=== PATIENT | male | born 1965 | race Caucasian/White ===

== ENCOUNTER 2018-03-20 00:15 | Outpatient (CLI) | payer OTHER, SELFPAY | END 2018-03-20 00:35 | PROVIDERS: PCP Family Medicine; Visit Provider Surgery | DX: Z12.11 Encounter for screening for malignant neoplasm of colon (principal); E66.8 Other obesity; Z01.818 Encounter for other preprocedural examination ==

== ENCOUNTER 2018-03-29 06:16 | Day surgery (SDC) | payer OTHER, SELFPAY ==
[2018-03-29 06:32] VITALS: BP 160/82; PULSE 60; RESP 22; TEMP 37; O2SAT 98
[2018-03-29] MEDS: Lactated Ringers 1,000 ML 30 ML IV ×2 (06:55→08:32)
--- NOTE | 2018-03-29 08:27 | W.COLOREPORT ---
Date of service: 03/29/18 Time of Service: 08:00 Colonoscopy Report Date of procedure: 03/29/18 Pre-op diagnosis general: Colorectal cancer screening Post-op diagnosis procedure note: other (Normal colon to the cecum) Procedure: Colonoscopy to the cecum Surgeon: Gurmeet Briones Anesthesia proc note operative: MAC (Maura Sotomayor CRNA; ASA 3 Mallampati class II) Estimated blood loss (mL): 0 Pathology: none sent Complications: None Disposition: same day Indications: 52-year-old morbidly obese gentleman presenting for colorectal cancer screening by colonoscopy. He has been asymptomatic has no family history of colorectal cancer and the risks and benefits of the procedure been discussed with him, and all his questions been answered to his satisfaction. Consents been obtained procedure: Prep: Miralax/Dulcolax (Prep quality good) Procedure Start Time: 08:02 Procedure End Time: 08:22 Retraction Time: 7 Findings: In examining the colon from cecum to anus, no abnormalities were noted. Procedure Description: The patient was seen in the day surgery waiting area. His identification was confirmed, and procedure checked. He was then brought to the procedure room. Monitoring for telemetry, blood pressure, oxygen saturation, and end tidal CO2 monitoring were applied. An appropriate time out was performed to confirm, identification, allergies, medication, procedure, was performed. Sedation was titrated for affect by the CUSTOMER CARE ASSOCIATE; Once adequate sedation was achieved, I performed a inspection of the external perineum, and a digitial rectal examination. No significant external abnormalities were noted. On digital rectal examination, there was no blood, no masses, good rectal tone, and a normal prostate. I advanced the colonoscope from the anus to the cecum under direct visualization. The cecum was identified by the ileal-cecal valve, and the appendiceal orifice. The scope was then withdrawn in circumferential manner from the cecum to the rectum. No abnormalites were noted in the colon. The scope was then withdrawn into the rectum, and retroflexed. No abnormalities were noted of the rectum or anorectal junction. The scope was then withdrawn, terminating the procedure. There were no complications during the procedure, and the patient tolerated the procedure well. He was returned to the day surgery recovery area in good condition. Plan: Will continue with routine screening for colorectal cancer according to current consensus guidelines, which is currently 10 years.
--- NOTE | 2018-03-29 08:34 | PDOC.DSDIS_ITS ---
Discharge Plan Disposition Patient Disposition: HOME Condition: Good Discharge Details Reason For Visit: SCREENING Attending Provider: Gurmeet Briones Primary Care Provider: Claudio Alegre Home Meds and New Rx's Prescriptions: Continue montelukast [Singulair] 10 mg tablet 10 mg PO QPM RF: 0 fluticasone [Flonase Allergy Relief] 50 mcg/actuation spray,suspension 2 spray CLYDE HS RF: 0 mv,Ca,win-mtjs-GC-lycopene [Centrum Ultra Men's] 1 EACH tablet 1 ea PO DAILY RF: 0 losartan [Cozaar] 50 MG tablet 50 mg PO HS RF: 0 atenolol-chlorthalidone 1 EACH tablet 1 tab-cap PO HS RF: 0 atenolol 25 MG tablet 50 mg PO HS RF: 0 polyethylene glycol 3350 [Miralax] 17 gram/dose Powder RF: 0 Discharge Instructions Instructions: Colonoscopy (DC) Stand Alone Forms: Colonoscopy Post Instructions, Bennett Cortez (DSU) Activity:: Activity as Tolerated Diet:: As Tolerated Discharge Orders Discharge Orders: Discharge Order (Routine); Ordered 03/29/18 Ordered By: Gurmeet Briones DS: Diagnosis Discharge Diagnosis (1) Encounter for screening colonoscopy: Start date: 03/29/18 Start time: 08:32 Status: Acute Asessment and Plan: Colonoscopy performed: Colonoscopy Report Date of procedure: 03/29/18 Pre-op diagnosis general: Colorectal cancer screening Post-op diagnosis procedure note: other (Normal colon to the cecum) Procedure: Colonoscopy to the cecum Surgeon: Gurmeet Briones Anesthesia proc note operative: MAC (Maura Sotomayor CRNA; ASA 3 Mallampati class II) Estimated blood loss (mL): 0 Pathology: none sent Complications: None Disposition: same day Indications: 52-year-old morbidly obese gentleman presenting for colorectal cancer screening by colonoscopy. He has been asymptomatic has no family history of colorectal cancer and the risks and benefits of the procedure been discussed with him, and all his questions been answered to his satisfaction. Consents been obtained procedure: Prep: Miralax/Dulcolax (Prep quality good) Procedure Start Time: 08:02 Procedure End Time: 08:22 Retraction Time: 7 Findings: In examining the colon from cecum to anus, no abnormalities were noted. Procedure Description: The patient was seen in the day surgery waiting area. His identification was confirmed, and procedure checked. He was then brought to the procedure room. Monitoring for telemetry, blood pressure, oxygen saturation, and end tidal CO2 monitoring were applied. An appropriate time out was performed to confirm, identification, allergies, medication, procedure, was performed. Sedation was titrated for affect by the EMBOSSING TOOLSETTER; Once adequate sedation was achieved, I performed a inspection of the external perineum, and a digitial rectal examination. No significant external abnormalities were noted. On digital rectal examination, there was no blood, no masses, good rectal tone, and a normal prostate. I advanced the colonoscope from the anus to the cecum under direct visualization. The cecum was identified by the ileal-cecal valve, and the appendiceal orifice. The scope was then withdrawn in circumferential manner from the cecum to the rectum. No abnormalites were noted in the colon. The scope was then withdrawn into the rectum, and retroflexed. No abnormalities were noted of the rectum or anorectal junction. The scope was then withdrawn, terminating the procedure. There were no complications during the procedure, and the patient tolerated the procedure well. He was returned to the day surgery recovery area in good condition. Plan: Will continue with routine screening for colorectal cancer according to current consensus guidelines, which is currently 10 years.
[2018-03-29 08:56] VITALS: BP 154/75; PULSE 50; RESP 18; TEMP 35.9; O2SAT 98
== END 2018-03-29 09:20 | disposition home or self-care (01) ==
PROVIDERS: PCP Family Medicine; Visit Provider Surgery
PROC: 0DJD8ZZ Inspection of Lower Intestinal Tract, Via Natural or Artificial Opening Endoscopic (ICD-10-PCS; CPT 45378; principal; 2018-03-29 07:30)
DX: Z12.11 Encounter for screening for malignant neoplasm of colon (principal); I10 Essential (primary) hypertension; G47.33 Obstructive sleep apnea (adult) (pediatric); E66.01 Morbid (severe) obesity due to excess calories
CPT/HCPCS: 45378

== ENCOUNTER 2018-04-18 09:34 | Outpatient (REF) | payer OTHER, SELFPAY ==
--- NOTE | 2018-04-18 09:15 | NASALBX_PTH ---
PATIENT: Jack Handley LOC: [facility] U#:[id number] AGE/SX: 52/M ROOM: RE04/18/[address]: Henry Lynch MD : 1965 BED: DIS: 04/18/2018 SPEC #: [id number] RECD: 04/18/18 18:11 STATUS: ILENE REQ #: [id number] DARSHANA: 04/18/18 09:[address]: Henry Lynch DEPT: Surgical Specimen RECD BY: Linda Schmidt ENTERED: 04/18/18 18:12 SP TYPE: NASALBX OTHR DR: Claudio Alegre MD Tissues: 1 - MUCOSA, NOS Procedures: GROSS AND MICRO LEVEL 3 Comments: [id number]
== END 2018-04-18 09:54 ==
LOC: LBN 09:34
PROVIDERS: PCP Family Medicine; Visit Provider Otolaryngology
DX: J33.0 Polyp of nasal cavity (principal)
CPT/HCPCS: 88305; 88304

== ENCOUNTER 2018-11-04 11:35 | Outpatient (CLI) | payer OTHER, SELFPAY ==
[2018-11-04 13:28] LABS: ALT 38 U/L (12-78); AST 26 U/L (15-37); Albumin 3.7 g/dL (3.4-5.0); Alkaline Phosphatase 90 U/L (46-116); Anion Gap 11.7 mmol/L (3-11); BUN 13 mg/dL (7-18); Bilirubin, Total 0.7 mg/dL (0.2-1.0); CO2 26.3 mmol/L (21.0-32.0); CREATININE 0.83 mg/dL (0.70-1.30); Calcium 8.9 mg/dL (8.5-10.1); Calculated LDL 106 mg/dL; Chloride 103 mmol/L (98-107); Cholesterol 160 mg/dL (50-200); Glucose 101 mg/dL (70-100); HDL Cholesterol 36 mg/dL (40-60); Sodium 141 mmol/L (136-145); Total Protein 7.2 g/dL (6.4-8.2); Triglyceride 94 mg/dL (30-150)
[2018-11-04 13:35] LABS: Hemoglobin A1C 5.9 % (4.5-6.2)
== END 2018-11-04 11:55 ==
PROVIDERS: PCP Family Medicine; Visit Provider Family Medicine
DX: E78.6 Lipoprotein deficiency (principal); I10 Essential (primary) hypertension; Z83.3 Family history of diabetes mellitus
CPT/HCPCS: 36415; 80053; 80061; 83721; 83036

== ENCOUNTER 2019-08-22 10:55 | Emergency (ER) | payer OTHER, SELFPAY ==
[2019-08-22] VITALS (48 sets, daily range): BP systolic 109–160; BP diastolic 59–96; PULSE 78–106; RESP 10–31; TEMP 36.5–36.8; O2SAT 83–100
--- NOTE | 2019-08-22 11:00 | DI.RAD_ITS ---
EXAM: XR PORTABLE CHEST AP CLINICAL HISTORY: SOB TECHNIQUE: 2D digital imaging was performed. COMPARISON: No exams were available for comparison FINDINGS: MEDIASTINUM: Normal. HEART: Normal. PULMONARY VASCULATURE: Normal. LUNGS: There is a 5.3 cm rounded opacity in the left upper lobe. There is also question of an opacit y in the left lung base the right lung appears clear. PLEURAL SPACE: No pleural effusion or pneumothorax. BONE:Normal. OTHER FINDINGS:Normal. IMPRESSION: 1. 5.3 cm rounded opacity in the left upper lobe. Differential considerations include pulmonary neop lasm, rounded atelectasis or pneumonia. CT scan of the chest with contrast is recommended for furthe r evaluation. DATA REPOSITORY: RADIATION DOSE DELIVERED:
[2019-08-22 11:16] LABS: BE -3.7 mmol/L (-3-3); HCO3 21 mmol/L (22-28); pCO2 32 mmHg (34-47); pH 7.42 (7.35-7.45); pO2 69 mmHg (83-108); sO2 93 % (94-98); tCO2 18 mmol/L (22-29)
[2019-08-22 11:19] LABS: FIO2 100 %; Site Left Radial
--- NOTE | 2019-08-22 11:30 | DI.CT_ITS ---
EXAM: CT CHEST PE CTA CLINICAL HISTORY: HYPOXIC, SOB, R/O PE. TECHNIQUE: Imaging Protocol: Axial CT angiography was performed with multi-slice acquisition and mu lti-planar and/or 3D reconstructions. CONTRAST MATERIAL: Intravenous: Omnipaque 350 Contrast volume:100 mL COMPARISON: No exams were available for comparison FINDINGS: Pulmonary Arteries: There are filling defects seen in branches of the pulmonary arteries to the upper and lower lobes bilaterally and the right middle lobe. There is no evidence of a saddle embolus. Tracheobronchial tree: Patent where visualized. Mediastinum and Jessica: No dominant adenopathy or fluid collection. Pulmonary parenchyma: Multifocal areas of consolidation are present. There is a peripheral wedge-sha ped opacity in the posterior aspect of the left upper lobe and a similar-appearing opacity in the lef t lower lobe. Pulmonary infarcts cannot be excluded. No architectural distortion. Pleura: No effusion or pneumothorax. Heart: Cardiomegaly. No coronary artery calcifications are seen. The right ventricle appears distend ed relative to the left ventricle concerning for right heart strain. No significant pericardial effu linda is present. Aorta: Thoracic aorta non-dilated. No evidence of thoracic aortic dissection. Upper abdomen: Unremarkable. Bones: Degenerative changes. IMPRESSION: 1. Extensive pulmonary embolic disease. 2. Prominent right ventricle concerning for right heart strain. 3. Multifocal pulmonary infiltrates including peripheral infiltrates in the left upper and left lower lobes. Infarcts cannot be excluded. 4. The findings were discussed with the Emergency Department on the date of the examination. RADIATION DOSE DELIVERED: Total DLP DATA REPOSITORY: All CT scans at this facility are submitted to the National Radiology Data Registry (NRDR) Dose Index Registry (DIR) with the [employer] ([employer]). RADIATION OPTIMIZATION: All CT scans at this facility use at least one of these dose optimization te chniques: automated exposure control; mA and/or kV adjustment per patient size (includes targeted exa ms where dose is matched to clinical indication); or iterative reconstruction.
--- NOTE | 2019-08-22 11:37 | ED.GENADUL_ITS ---
Discharge Plan Disposition Patient Disposition: [facility] Condition: Serious Discharge Details Chief Complaint: SOB Clinical Impression: Bilateral pulmonary embolism, Pulmonary infarction, Pneumonia Primary Care Provider: Claudio Alegre ED Provider: Kaela Travis Home Meds and New Rx's Prescriptions: No Action atenolol 25 mg tablet 50 mg PO HS Qty: 180 RF: 3 atenolol-chlorthalidone 100-25 mg tablet 1 tab PO HS Qty: 90 RF: 3 losartan [Cozaar] 50 mg tablet 50 mg PO HS Qty: 90 RF: 3 montelukast [Singulair] 10 mg tablet 10 mg PO QPM Qty: 90 RF: 3 fluticasone propionate [Flonase Allergy Relief] 50 mcg/actuation spray,suspension 2 spray CLYDE HS Qty: 18.2 RF: 11 desonide 0.05 % cream 1 applic topical BID PRN (Reason: rash) Qty: 60 RF: 2 Centrum Ultra Men's 1 EACH tablet 1 ea PO DAILY RF: 0 Discharge Data Discharge Date/Time-TO BE ENTERED AT DEPARTURE: 08/22/19 16:14 Medical Decision Making 1110 -- 53-year-old male with a history of morbid obesity, hypertension, sleep apnea on CPAP at night presents with dry cough for 4 days and shortness of breath with exertion since yesterday. EMS reported an O2 sat of 70s on room air on arrival to residence. Patient placed on CPAP and O2 sat improved to low 80s. EMS reported possible need for intubation on arrival to ED. On arrival to ED, patient awake and alert and able to answer questions. O2 sat mid 70s on CPAP. Patient has diminished breath sounds at bases bilaterally but otherwise no obvious wheezing, rhonchi or rales. Patient placed on BiPAP and given 2 DuoNeb's. O2 sat increased to 98% and patient admitted to significant improvement. Differential diagnosis includes pneumonia, PE, COPD, CHF, COVID-19, MRI. EKG obtained which noted a rate of 93, sinus with T wave inversion in inferior and anterior lateral leads. No STEMI. ABG noted pH of 7.42, PCO2 32, PO2 69, bicarb 21. Patient remained stable, still significantly improved compared to arrival. 1310 --labs and imaging reviewed. White blood cell count 19. D-dimer elevated at 6427, ferritin elevated 592. LDH elevated at 312. BNP elevated at 3550. CRP elevated at 6.96. Procalcitonin <0.1. Chest x-ray notes patchy infiltrates left lung. Official read noted left upper lobe nodule, differential includes pneumonia, atelectasis, neoplasm. Vanc and Zosyn IV ordered. 1320 -- d/w hospitalist -would prefer to wait on repeat troponin and EKG to determine disposition, whether here or [facility]. If CT chest also indicating bilateral groundglass opacities, to discuss with [facility] whether to add remdesivir for possible COVID. 1430 --delay in obtaining CT chest. CT chest resulted and notes bilateral PE and questionable infarcts in addition to bilateral pneumonia and questionable right heart strain. Lovenox SC ordered. Pt remains stable. O2 sat 98% on bipap at 55% O2. 1500 -- Case discussed with [facility] cardiology who accepts patient for transfer. Accepting physician Dr. Coyne. Agrees with plan for Lovenox SC. No other medication recommendations at this time. Medical Records Medical records reviewed: Yes I reviewed the patient's medical records. Imaging Data Radiologic Study: Radiologist's impression: XR PORTABLE CHEST AP CLINICAL HISTORY: SOB TECHNIQUE: 2D digital imaging was performed. COMPARISON: No exams were available for comparison FINDINGS: MEDIASTINUM: Normal. HEART: Normal. PULMONARY VASCULATURE: Normal. LUNGS: There is a 5.3 cm rounded opacity in the left upper lobe. There is also question of an opacity in the left lung base the right lung appears clear. PLEURAL SPACE: No pleural effusion or pneumothorax. BONE:Normal. OTHER FINDINGS:Normal. IMPRESSION: 1. 5.3 cm rounded opacity in the left upper lobe. Differential considerations include pulmonary neoplasm, rounded atelectasis or pneumonia. CT scan of the chest with contrast is recommended for further evaluation. CT CHEST PE CTA CLINICAL HISTORY: HYPOXIC, SOB, R/O PE. TECHNIQUE: Imaging Protocol: Axial CT angiography was performed with multi- slice acquisition and multi-planar and/or 3D reconstructions. CONTRAST MATERIAL: Intravenous: Omnipaque 350 Contrast volume:100 mL COMPARISON: No exams were available for comparison FINDINGS: Pulmonary Arteries: There are filling defects seen in branches of the pulmonary arteries to the upper and lower lobes bilaterally and the right middle lobe. There is no evidence of a saddle embolus. Tracheobronchial tree: Patent where visualized. Mediastinum and Jessica: No dominant adenopathy or fluid collection. Pulmonary parenchyma: Multifocal areas of consolidation are present. There is a peripheral wedge-shaped opacity in the posterior aspect of the left upper lobe and a similar-appearing opacity in the left lower lobe. Pulmonary infarcts cannot be excluded. No architectural distortion. Pleura: No effusion or pneumothorax. Heart: Cardiomegaly. No coronary artery calcifications are seen. The right ventricle appears distended relative to the left ventricle concerning for right heart strain. No significant pericardial effusion is present. Aorta: Thoracic aorta non-dilated. No evidence of thoracic aortic dissection. Upper abdomen: Unremarkable. Bones: Degenerative changes. IMPRESSION: 1. Extensive pulmonary embolic disease. 2. Prominent right ventricle concerning for right heart strain. 3. Multifocal pulmonary infiltrates including peripheral infiltrates in the left upper and left lower lobes. Infarcts cannot be excluded. 4. The findings were discussed with the Emergency Department on the date of the examination. Lab Data Lab results reviewed: Yes I reviewed the patient's lab results. Labs: 08/22/19 12:06 Nasopharynx Influenza Types A,B Antigen - Final Laboratory Tests Range/Units 08/22/19 08/22/19 08/22/19 11:12 11:40 11:40 WBC (4.4-10.8) k/cumm 19.70 H RBC (4.50-6.00) m/cumm 5.08 Hgb (13.5-17.5) g/dL 15.8 Hct (40.0-50.0) % 44.6 MCV (80-95) fL 87.8 MCH (27.0-33.0) pg 31.1 MCHC (32.0-36.0) g/dL 35.4 RDW (11.8-14.1) % 13.7 Plt Count (130-400) x1000/uL 265 MPV (8.0-11.0) fL 10.9 Immature Gran % % 0.7 Neutrophils % 75.7 Lymphocytes % 14.6 Monocytes % 7.9 Eosinophils % 0.9 Basophils % 0.2 Absolute Neutrophils (1.2-6.7) k/cumm 14.91 H Absolute Lymphocytes (1.2-3.4) k/cumm 2.88 Absolute Monocytes (0.11-0.7) k/cumm 1.56 H Absolute Eosinophils (0.0-0.7) k/cumm 0.18 Absolute Basophils (0.0-0.2) k/cumm 0.04 Nucleated RBCs /100WBC 1 Differential Comment Diff reviewed RBC Morphology Normal PT (9.3-11.0) sec INR (0.9-1.1) APTT (21.0-31.4) sec D-Dimer (<500) ng/mlFEU ABG Sample Site Left radial ABG pH (7.35-7.45) 7.42 ABG pCO2 (34-47) mmHg 32 L ABG pO2 (83-108) mmHg 69 L ABG HCO3 (22-28) mmol/L 21 L ABG Total CO2 (22-29) mmol/L 18 L ABG O2 Saturation (94-98) % 93 L ABG Base Excess (-3-3) mmol/L -3.7 L FiO2 % 100 Sodium (136-145) mmol/L 139 Potassium (3.5-5.1) mmol/L 3.6 Chloride (98-107) mmol/L 103 Carbon Dioxide (21.0-32.0) mmol/L 22.9 Anion Gap (3-11) mmol/L 13.1 H BUN (7-18) mg/dL 19 H Creatinine (0.70-1.30) mg/dL 1.30 Estimated GFR/1.73 m2 (mL/min/1.73m2) 57.97 Glucose (74-106) mg/dL 164 H Calcium (8.5-10.1) mg/dL 9.3 Magnesium (1.8-2.4) mg/dL 1.9 Ferritin (26-388) ng/mL Total Bilirubin (0.2-1.0) mg/dL 0.9 AST (15-37) U/L 74 H ALT (16-63) U/L 90 H Alkaline Phosphatase (46-116) U/L 80 Lactate Dehydrogenase (85-227) U/L Troponin I (<0.06) ng/Ml 0.23 H* C-Reactive Protein (0.0-0.3) mg/dL NT-Pro-B Natriuret Pep (<300) pg/mL 3550 H Total Protein (6.4-8.2) g/dL 8.0 Albumin (3.4-5.0) g/dL 3.5 Procalcitonin ng/mL COVID-19 PCR (Negative) Jigarn COVID-19 PCR Ref Test Perform Site Range/Units 08/22/19 08/22/19 08/22/19 11:40 11:40 11:40 WBC (4.4-10.8) k/cumm RBC (4.50-6.00) m/cumm Hgb (13.5-17.5) g/dL Hct (40.0-50.0) % MCV (80-95) fL MCH (27.0-33.0) pg MCHC (32.0-36.0) g/dL RDW (11.8-14.1) % Plt Count (130-400) x1000/uL MPV (8.0-11.0) fL Immature Gran % % Neutrophils % Lymphocytes % Monocytes % Eosinophils % Basophils % Absolute Neutrophils (1.2-6.7) k/cumm Absolute Lymphocytes (1.2-3.4) k/cumm Absolute Monocytes (0.11-0.7) k/cumm Absolute Eosinophils (0.0-0.7) k/cumm Absolute Basophils (0.0-0.2) k/cumm Nucleated RBCs /100WBC Differential Comment RBC Morphology PT (9.3-11.0) sec 10.6 INR (0.9-1.1) 1.1 APTT (21.0-31.4) sec 22.5 D-Dimer (<500) ng/mlFEU ABG Sample Site ABG pH (7.35-7.45) ABG pCO2 (34-47) mmHg ABG pO2 (83-108) mmHg ABG HCO3 (22-28) mmol/L ABG Total CO2 (22-29) mmol/L ABG O2 Saturation (94-98) % ABG Base Excess (-3-3) mmol/L FiO2 % Sodium (136-145) mmol/L Potassium (3.5-5.1) mmol/L Chloride (98-107) mmol/L Carbon Dioxide (21.0-32.0) mmol/L Anion Gap (3-11) mmol/L BUN (7-18) mg/dL Creatinine (0.70-1.30) mg/dL Estimated GFR/1.73 m2 (mL/min/1.73m2) Glucose (74-106) mg/dL Calcium (8.5-10.1) mg/dL Magnesium (1.8-2.4) mg/dL Ferritin (26-388) ng/mL 592 H Total Bilirubin (0.2-1.0) mg/dL AST (15-37) U/L ALT (16-63) U/L Alkaline Phosphatase (46-116) U/L Lactate Dehydrogenase (85-227) U/L 312 H Troponin I (<0.06) ng/Ml C-Reactive Protein (0.0-0.3) mg/dL 6.96 H NT-Pro-B Natriuret Pep (<300) pg/mL Total Protein (6.4-8.2) g/dL Albumin (3.4-5.0) g/dL Procalcitonin ng/mL < 0.1 COVID-19 PCR (Negative) Nasopharyn COVID-19 PCR Ref Test Perform Site Range/Units 08/22/19 08/22/19 08/22/19 11:40 12:06 13:30 WBC (4.4-10.8) k/cumm RBC (4.50-6.00) m/cumm Hgb (13.5-17.5) g/dL Hct (40.0-50.0) % MCV (80-95) fL MCH (27.0-33.0) pg MCHC (32.0-36.0) g/dL RDW (11.8-14.1) % Plt Count (130-400) x1000/uL MPV (8.0-11.0) fL Immature Gran % % Neutrophils % Lymphocytes % Monocytes % Eosinophils % Basophils % Absolute Neutrophils (1.2-6.7) k/cumm Absolute Lymphocytes (1.2-3.4) k/cumm Absolute Monocytes (0.11-0.7) k/cumm Absolute Eosinophils (0.0-0.7) k/cumm Absolute Basophils (0.0-0.2) k/cumm Nucleated RBCs /100WBC Differential Comment RBC Morphology PT (9.3-11.0) sec INR (0.9-1.1) APTT (21.0-31.4) sec D-Dimer (<500) ng/mlFEU 6427 H ABG Sample Site ABG pH (7.35-7.45) ABG pCO2 (34-47) mmHg ABG pO2 (83-108) mmHg ABG HCO3 (22-28) mmol/L ABG Total CO2 (22-29) mmol/L ABG O2 Saturation (94-98) % ABG Base Excess (-3-3) mmol/L FiO2 % Sodium (136-145) mmol/L Potassium (3.5-5.1) mmol/L Chloride (98-107) mmol/L Carbon Dioxide (21.0-32.0) mmol/L Anion Gap (3-11) mmol/L BUN (7-18) mg/dL Creatinine (0.70-1.30) mg/dL Estimated GFR/1.73 m2 (mL/min/1.73m2) Glucose (74-106) mg/dL Calcium (8.5-10.1) mg/dL Magnesium (1.8-2.4) mg/dL Ferritin (26-388) ng/mL Total Bilirubin (0.2-1.0) mg/dL AST (15-37) U/L ALT (16-63) U/L Alkaline Phosphatase (46-116) U/L Lactate Dehydrogenase (85-227) U/L Troponin I (<0.06) ng/Ml 0.33 H* C-Reactive Protein (0.0-0.3) mg/dL NT-Pro-B Natriuret Pep (<300) pg/mL Total Protein (6.4-8.2) g/dL Albumin (3.4-5.0) g/dL Procalcitonin ng/mL COVID-19 PCR (Negative) Negative Nasopharyn COVID-19 PCR Not Applicable Ref Test Perform Site [facility] lab Range/Units 08/22/19 14:02 WBC (4.4-10.8) k/cumm RBC (4.50-6.00) m/cumm Hgb (13.5-17.5) g/dL Hct (40.0-50.0) % MCV (80-95) fL MCH (27.0-33.0) pg MCHC (32.0-36.0) g/dL RDW (11.8-14.1) % Plt Count (130-400) x1000/uL MPV (8.0-11.0) fL Immature Gran % % Neutrophils % Lymphocytes % Monocytes % Eosinophils % Basophils % Absolute Neutrophils (1.2-6.7) k/cumm Absolute Lymphocytes (1.2-3.4) k/cumm Absolute Monocytes (0.11-0.7) k/cumm Absolute Eosinophils (0.0-0.7) k/cumm Absolute Basophils (0.0-0.2) k/cumm Nucleated RBCs /100WBC Differential Comment RBC Morphology PT (9.3-11.0) sec INR (0.9-1.1) APTT (21.0-31.4) sec D-Dimer (<500) ng/mlFEU ABG Sample Site ABG pH (7.35-7.45) ABG pCO2 (34-47) mmHg ABG pO2 (83-108) mmHg ABG HCO3 (22-28) mmol/L ABG Total CO2 (22-29) mmol/L ABG O2 Saturation (94-98) % ABG Base Excess (-3-3) mmol/L FiO2 % Sodium (136-145) mmol/L Potassium (3.5-5.1) mmol/L Chloride (98-107) mmol/L Carbon Dioxide (21.0-32.0) mmol/L Anion Gap (3-11) mmol/L BUN (7-18) mg/dL Creatinine (0.70-1.30) mg/dL Estimated GFR/1.73 m2 (mL/min/1.73m2) Glucose (74-106) mg/dL Calcium (8.5-10.1) mg/dL Magnesium (1.8-2.4) mg/dL Ferritin (26-388) ng/mL Total Bilirubin (0.2-1.0) mg/dL AST (15-37) U/L ALT (16-63) U/L Alkaline Phosphatase (46-116) U/L Lactate Dehydrogenase (85-227) U/L Troponin I (<0.06) ng/Ml Cancelled C-Reactive Protein (0.0-0.3) mg/dL NT-Pro-B Natriuret Pep (<300) pg/mL Total Protein (6.4-8.2) g/dL Albumin (3.4-5.0) g/dL Procalcitonin ng/mL COVID-19 PCR (Negative) Nasopharyn COVID-19 PCR Ref Test Perform Site ECG Data Attestation: I personally reviewed and interpreted this ECG (s) as follows: Interpretation: Rate of 93, sinus, T wave inversion in lead III, aVF, V2 through V5. No acute ST elevation or depression. [place] 146. QTc 502. QRS 106. HPI General Mode of arrival: EMS . Date/Time Provider Initiated Documentation: 08/22/19 10:59 . Limitations to Documentation: no limitations . Information obtained by: patient and EMS . HPI Narrative: Patient is a 53-year-old male with history of morbid obesity, hypertension, obstructive sleep apnea on CPAP at night who presents for cough for 4 days and shortness of breath since yesterday. Patient states his cough has been dry. He states his shortness of breath is worse with exertion. He denies any fever or chest pain. He denies any recent travel. He states he is not on home oxygen. Related Data Home Medications Medication Instructions Recorded Confirmed Centrum Ultra Men's 1 ea PO DAILY 11/24/12 08/22/19 atenolol 100 mg-chlorthalidone 25 1 tab PO HS #90 tab 11/04/18 08/22/19 mg tablet atenolol 25 mg tablet 50 mg PO HS #180 tab 11/04/18 08/22/19 fluticasone propionate 50 2 spray CLYDE HS #18.2 gm 11/04/18 08/22/19 mcg/actuation nasal spray,suspension losartan 50 mg tablet 50 mg PO HS #90 tab 11/04/18 08/22/19 montelukast 10 mg tablet 10 mg PO QPM #90 tab 11/04/18 08/22/19 desonide 0.05 % topical cream 1 applic TOPICAL BID PRN #60 gm 11/28/18 08/22/19 Previous Rx's Medication Instructions Recorded atenolol 100 mg-chlorthalidone 25 1 tab PO HS #90 tab 11/04/18 mg tablet atenolol 25 mg tablet 50 mg PO HS #180 tab 11/04/18 fluticasone propionate 50 2 spray CLYDE HS #18.2 gm 11/04/18 mcg/actuation nasal spray,suspension losartan 50 mg tablet 50 mg PO HS #90 tab 11/04/18 montelukast 10 mg tablet 10 mg PO QPM #90 tab 11/04/18 desonide 0.05 % topical cream 1 applic TOPICAL BID PRN #60 gm 11/28/18 Allergies Allergy/AdvReac Type Severity Reaction Status Date / Time lisinopril AdvReac Intermediate JAUNDICE Verified 08/22/19 11:24 hydrochlorothiazide AdvReac JAUNDICE Verified 08/22/19 11:24 General Stated Complaint: SOB TYLER: 1 Review of Systems All systems reviewed & are unremarkable except as noted in HPI and below Constitutional Constitutional: Reports as per HPI, Denies chills and Denies fever(s) Eyes Eyes: Denies blurry vision ENT Ears, Nose, Mouth, and Throat: Denies dizziness, Denies sore throat and Denies throat swelling Cardiovascular Cardiovascular: Denies chest pain and Reports dyspnea Respiratory Respiratory: Reports cough and Reports dyspnea Gastrointestinal Gastrointestinal: Denies abdominal pain, Denies diarrhea and Denies vomiting Genitourinary Genitourinary: Denies hematuria and Denies dysuria Musculoskeletal Musculoskeletal: Denies back pain and Denies numbness Integumentary/Breasts Skin/Breast: Denies lesions and Denies rash Neurologic Neurologic: Denies dizziness, Denies localized weakness and Denies numbness Allergic/Immunologic Allergic/Immunologic: Denies throat swelling [facility] Medical History (Updated 08/22/19 @ 15:08 by Kaela Travis DO) Essential hypertension (Acute) Low HDL (under 40) (Acute) Low HDL (under 40) (Acute) Morbid obesity (Acute) Nasal polyps (Acute) KENTRELL on CPAP (Chronic) Patellofemoral disorder of left knee (Acute) Surgical History (Updated 04/11/18 @ 10:26 by Vilma Larson RN) H/O colonoscopy (Resolved 03/29/18) Dr Briones, no abnormalities, repeat 10 years Family History (Updated 11/05/18 @ 09:08 by Kang Jo) Mother Diabetes Addisons disease Father Essential hypertension Maternal Grandfather , 59 Lung cancer Smoker Paternal Grandfather No problems noted. Maternal Grandmother , 86 No problems noted. Paternal Grandmother No problems noted. Social History (Updated 11/05/18 @ 09:06 by Kang Jo) Smoking/Tobacco Use Status: Current-Occasional Tobacco Type: pipe Quit status: not considering quitting Second Hand Exposure: Yes Alcohol Intake: current Alcohol Intake frequency: a few times a month Alcohol type: beer, wine and hard liquor Drug use: Never Substance use type: former substance user Caregiver/Support person: No Household members: significant other Housing: house Communication Needs: None Do you need help understanding health information?: Never Pets and animals: Yes Pets and animals: cat(s) Sexually active: Yes Do you think of yourself as: bisexual Current gender identity: male What is your relationship status?: living with partner How often do you talk on the phone with friends or family?: three or more times per week How often do you get together with friends or relatives?: twice per week How often do you attend congregational or protestant services?: decline to answer Do you belong to any clubs or organized social groups?: yes Panel score (0-1 are the most socially isolated patients): 3 What type of physical activity do you participate in: walking Duration: 15-30 minutes/day Frequency: 3-4 times per week Mary/Rastafarian: None Special mary needs: No Seatbelt use: always Helmet use: No Drive intox or ride w/intox feeder driver: No Exam Const General: cooperative and in distress severe and respiratory Nutritional Appearance: obese morbidly obese Orientation: alert, awake and oriented x3 HENMT Head: normal to inspection Face and sinus: normal facial exam Eyes General: appearance normal, both eyes and all related structures EOM: EOM intact bilaterally Neck Neck: normal visual inspection and No submandibular swelling Lymphatic: no lymphadenopathy noted Chest Chest: normal inspection of the chest and no tenderness Resp Effort & Inspection: normal respiratory effort and able to speak in complete sentences Auscultation: diminished lung sounds bilaterally in the lower lung kong Cardio Rate: regular rate Rhythm: regular rhythm GI Inspection: normal to inspection and obesity Palpation: soft, not firm, not rigid and nontender Auscultation: normal bowel sounds Skin General skin exam: no rashes or lesions noted Neuro General: patient alert, patient awake and patient oriented x3 Cognition: normal cognition Speech: speech normal Motor: muscle tone normal throughout Sensory Exam: no sensory deficits noted Extrem General: normal to inspection, full ROM, capillary refill normal, no calf tenderness bilaterally and no edema Psych Appearance: grossly normal Mental Status: mental status grossly normal Speech and Movement: speech and movement normal Affect: normal affect Course Vital Signs Vital signs: Vital Signs Temperature 97.7 F 08/22/19 11:05 Pulse 101 H 08/22/19 11:05 Respiratory Rate 22 08/22/19 11:05 Blood Pressure 160/90 H 08/22/19 11:05 Pulse Oximetry 98 08/22/19 11:05 Temperature 97.7 F 08/22/19 11:05 Temperature Source Skin 08/22/19 11:05 Pulse 101 H 08/22/19 11:05 Respiratory Rate 22 08/22/19 11:05 Respiratory Effort Labored 08/22/19 11:26 Blood Pressure 160/90 H 08/22/19 11:05 Blood Pressure Position Sitting 08/22/19 11:05 Pulse Oximetry 98 08/22/19 11:05 Oxygen Delivery Method Bi-pap 08/22/19 11:05 Pain Level 0 08/22/19 11:05 Comment 08/22/19 11:05 Lab/Test Results Lab/Test Results: Laboratory Tests Range/Units 08/22/19 11:12 ABG Sample Site Left radial ABG pH (7.35-7.45) 7.42 ABG pCO2 (34-47) mmHg 32 L ABG pO2 (83-108) mmHg 69 L ABG HCO3 (22-28) mmol/L 21 L ABG Total CO2 (22-29) mmol/L 18 L ABG O2 Saturation (94-98) % 93 L ABG Base Excess (-3-3) mmol/L -3.7 L FiO2 % 100 Critical Care Time Critical Care Time Critical Care Time: Yes Total Critical Care Time: 60 Attestation: I spent 60 minutes of critical care time with this patient. This does not include time spent on separately reported billable procedures.
[2019-08-22] MEDS: Normal Saline Flush 10 ML SYR IVP (11:45)
[2019-08-22] MEDS: Aspirin 81 MG CHEW 324 MG CH (11:45)
[2019-08-22] MEDS: Normal Saline 500 ML IV (12:00)
[2019-08-22 12:01] LABS: Abs Immature Grans 0.14 k/cumm (0.0-0.09); Absolute Basophil Count 0.04 k/cumm (0.0-0.2); Absolute Eosinophil Count 0.18 k/cumm (0.0-0.7); Absolute Lymphocyte Count 2.88 k/cumm (1.2-3.4); Absolute Neutrophil Count 14.91 k/cumm (1.2-6.7); Basophils % 0.2; Eosinophils % 0.9; HCT 44.6 % (40.0-50.0); HGB 15.8 g/dL (13.5-17.5); Immature Grans % 0.7 %; Lymphocytes % 14.6; Mean Corp. HGB Concentration 35.4 g/dL (32.0-36.0); Mean Corpuscular Hemoglobin 31.1 pg (27.0-33.0); Mean Corpuscular Volume 87.8 fL (80-95); Mean Platelet Volume 10.9 fL (8.0-11.0); Monocytes % 7.9; Neutrophils % 75.7; Platelet Count 265 x1000/uL (130-400); RBC 5.08 m/cumm (4.50-6.00); RBC Distribution Width 13.7 % (11.8-14.1)
[2019-08-22 12:09] LABS: C-Reactive Protein 6.96 mg/dL (0.0-0.3); LDH 312 U/L (85-227)
[2019-08-22 12:10] LABS: INR 1.1 (0.9-1.1); PTT Activated 22.5 sec (21.0-31.4); Prothrombin Time 10.6 sec (9.3-11.0)
[2019-08-22 12:15] LABS: ALT 90 U/L (16-63); AST 74 U/L (15-37); Albumin 3.5 g/dL (3.4-5.0); Alkaline Phosphatase 80 U/L (46-116); Anion Gap 13.1 mmol/L (3-11); BUN 19 mg/dL (7-18); Bilirubin, Total 0.9 mg/dL (0.2-1.0); CO2 22.9 mmol/L (21.0-32.0); Calcium 9.3 mg/dL (8.5-10.1); Chloride 103 mmol/L (98-107); Estimated GFR 57.97 (mL/min/1.73m2); Glucose 164 mg/dL (74-106); Magnesium 1.9 mg/dL (1.8-2.4); NT-proBNP 3550 pg/mL (<300); Potassium 3.6 mmol/L (3.5-5.1); Sodium 139 mmol/L (136-145)
[2019-08-22 12:16] LABS: Troponin I 0.23 ng/Ml (<0.06)
[2019-08-22 12:19] LABS: Absolute Monocyte Count 1.56 k/cumm (0.11-0.7)
[2019-08-22 12:22] LABS: Procalcitonin < 0.1 ng/mL
[2019-08-22 12:29] LABS: D-Dimer 6427 ng/mlFEU (<500)
[2019-08-22 12:34] LABS: Ferritin 592 ng/mL (26-388)
[2019-08-22] MEDS: Albuterol 2.5 MG/3 ML INH SOLN VIAL UPD ×2 (12:35→12:38)
[2019-08-22 12:52] LABS: Diff Comment Diff Reviewed; Nucleated RBC 1 /100WBC; RBC Morphology Normal
[2019-08-22] MEDS: PIPERACILLIN/TAZO 3.375 GM in Normal Saline 50 ML IVPB (13:06)
[2019-08-22] MEDS: VANCOMYCIN 2,500 MG in Normal Saline 500 ML 200 MG IVPB (13:43)
[2019-08-22 13:59] LABS: Troponin I 0.33 ng/Ml (<0.06)
[2019-08-22] MEDS: Omnipaque 350 MG/ML 100 ML BTL IJ (14:22)
[2019-08-22 23:22] LABS: COVID-19 RT-PCR UVMMC Result Negative (Negative)
== END 2019-08-22 16:14 | disposition short-term general hospital (02) ==
PROVIDERS: Physician Assistant; Emergency Provider Physician Assistant; PCP Family Medicine
DX: I26.99 Other pulmonary embolism without acute cor pulmonale (principal); J18.9 Pneumonia, unspecified organism; R09.02 Hypoxemia; E66.01 Morbid (severe) obesity due to excess calories; Z68.44 Body mass index [BMI] 60.0-69.9, adult; I10 Essential (primary) hypertension; G47.33 Obstructive sleep apnea (adult) (pediatric); F17.210 Nicotine dependence, cigarettes, uncomplicated
CPT/HCPCS: 36415; 71275; 80053; 82805; 84145; 87449; 93005; 94640; 96361; 96365; 96366; 96367; 96372; 99291; U0003; 36600; 71045; 82728; 83615; 83735; 83880; 84484; 85025; 85379; 85610; 85730; 86140; 93010; 94660; J1650; J2543; J3490; J7613

== ENCOUNTER 2019-08-30 16:54 | Emergency (ER) | payer OTHER, SELFPAY ==
[2019-08-30 17:00] VITALS: BP 195/92; PULSE 85; RESP 22; TEMP 37.2; O2SAT 95
--- NOTE | 2019-08-30 17:20 | W.ED.GENAD ---
Discharge Plan Disposition Patient Disposition: [facility] Condition: Stable Discharge Details Chief Complaint: Vascular Clinical Impression: Pseudoaneurysm of artery of upper extremity, Hematoma following procedure Primary Care Provider: Claudio Alegre ED Provider: Lydia Handley Home Meds and New Rx's Prescriptions: No Action atenolol 25 mg tablet 50 mg PO HS Qty: 180 RF: 3 atenolol-chlorthalidone 100-25 mg tablet 1 tab PO HS Qty: 90 RF: 3 losartan [Cozaar] 50 mg tablet 50 mg PO HS Qty: 90 RF: 3 montelukast [Singulair] 10 mg tablet 10 mg PO QPM Qty: 90 RF: 3 fluticasone propionate [Flonase Allergy Relief] 50 mcg/actuation spray,suspension 2 spray CLYDE HS Qty: 18.2 RF: 11 desonide 0.05 % cream 1 applic topical BID PRN (Reason: rash) Qty: 60 RF: 2 warfarin 5 mg tablet 5 mg PO DAILY RF: 0 enoxaparin [Lovenox] 150 mg/mL syringe 180 mg SC Q12H RF: 0 Centrum Ultra Men's 1 EACH tablet 1 ea PO DAILY RF: 0 Discharge Data Discharge Date/Time-TO BE ENTERED AT DEPARTURE: 08/30/19 23:05 Medical Decision Making <Lydia Handley - Last Filed: 08/30/19 22:57> 53-year-old male presents with right forearm swelling and ecchymosis which has worsened over the last 5 days. He states he had multiple IV attempts to his right inner forearm, and had an IV placed in that area. When he was discharged from [facility] Sunday, patient states that he he had a small amount of contusion and ecchymosis which has now spread throughout his whole forearm and has increased in size. Swelling has also increased moderately. Radial pulses are palpable they are somewhat diminished. Patient was recently seen in the ED on 08/22/2019 diagnosed with bilateral pulmonary emboli's with pulmonary infarcts was transferred to [facility] and has been placed on Coumadin and Lovenox. He states he takes 10 mg Coumadin p.o. Sunday and 150 mg of Lovenox twice a day. Other than his right upper extremity he states he has no worsening shortness of breath no chest pain and is feeling somewhat better. At this time will check CBC, CMP for kidney function and PT/INR. Ultrasound is not available so I will consider doing a CTA of his right upper extremity to evaluate blood vessels. At this time the patient does not have severe pain which would be concerning for compartment syndrome, however this cannot be completely excluded. 2009: [facility] [place] vascular MD. 2012: Spoke with the residents radiologist Dr. Avalos regarding CT results. He verbalized that the results of the large intramuscular hematoma primarily involving the pronator teres muscle measuring approximately 7 x 4 x 8 cm. He also reiterated the 5 mm pseudoaneurysm from the proximal radial artery and a second pseudoaneurysm versus active hemorrhage just distal to the first described pseudoaneurysm measuring about 10 mm in length. 2038: Spoke with Dr. Dutton with vascular surgery at [facility] who recommends placing pressure and reimaging with CT or ultrasound in the morning. 2100: Spoke with Dr. Matias hospitalist. And very to the is not comfortable keeping patient for observation because patient has a vascular issue that could require intervention if gets any worse. Will re-page [facility] for possible transfer for observation. At this time I feel like admission would serve the patient better for continuation of care. 2129: Spoke again with Dr. Dutton and Dr. Granda at [facility] ED patient is to be transferred to the ED for evaluation and reimaging in the morning. Patient notified and verbalizes understanding. staff scientist placed pressure bandage onto the forearm. Local pressure applied with rolled the Vince wrap and having patient flex elbow to apply pressure to the approximate area of the pseudoaneurysm. At this time transfer is being coordinated. 2256: Instructed patient to hold off on Coumadin or Lovenox until speaking with physicians at [facility]. Okay to take the rest of his normal night medications. EMS here for transport. <Gus Jeffrey MD - Last Filed: 08/31/19 13:46> 20:11 -- Patient seen, examined, and discussed with HARISH Handley. Suspect hematoma. Consider potential active bleeding peripheral vessel and potential supratherapeutic INR. Exam is not consistent with compartment syndrome. Patient has no significant pain on flexion extension at the wrist and compartments are not tense. He is neurovascular intact in his distal right hand. I agree with treatment plan as discussed/documented. HARISH Handley to consult vascular at [facility]. HPI <Lydia Handley - Last Filed: 08/30/19 22:57> General Mode of arrival: ambulatory. Date/Time Provider Initiated Documentation: 08/30/19 17:00. Limitations to Documentation: no limitations. Information obtained by: patient. HPI Narrative: 53-year-old male presents with right forearm swelling and ecchymosis which has worsened over the last 5 days. He states he had multiple IV attempts to his right inner forearm, and had an IV placed in that area. When he was discharged from [facility] Sunday, patient states that he he had a small amount of contusion and ecchymosis which has now spread throughout his whole forearm and has increased in size. Swelling has also increased moderately. Radial pulses are palpable they are somewhat diminished. Patient was recently seen in the ED on 08/22/2019 diagnosed with bilateral pulmonary emboli's with pulmonary infarcts was transferred to [facility] and has been placed on Coumadin and Lovenox. He states he takes 10 mg Coumadin p.o. Sunday and 150 mg of Lovenox twice a day. Other than his right upper extremity he states he has no worsening shortness of breath no chest pain and is feeling somewhat better. Related Data Home Medications Medication Instructions Recorded Confirmed Centrum Ultra Men's 1 ea PO DAILY 11/24/12 08/30/19 atenolol 100 mg-chlorthalidone 25 1 tab PO HS #90 tab 11/04/18 08/22/19 mg tablet atenolol 25 mg tablet 50 mg PO HS #180 tab 11/04/18 08/22/19 fluticasone propionate 50 2 spray CLYDE HS #18.2 gm 11/04/18 08/30/19 mcg/actuation nasal spray,suspension losartan 50 mg tablet 50 mg PO HS #90 tab 11/04/18 08/30/19 montelukast 10 mg tablet 10 mg PO QPM #90 tab 11/04/18 08/30/19 desonide 0.05 % topical cream 1 applic TOPICAL BID PRN #60 gm 11/28/18 08/30/19 enoxaparin 150 mg/mL subcutaneous 180 mg SC Q12H ml 08/25/19 08/30/19 syringe warfarin 5 mg tablet 5 mg PO DAILY 08/25/19 08/30/19 Previous Rx's Medication Instructions Recorded atenolol 100 mg-chlorthalidone 25 1 tab PO HS #90 tab 11/04/18 mg tablet atenolol 25 mg tablet 50 mg PO HS #180 tab 11/04/18 fluticasone propionate 50 2 spray CLYDE HS #18.2 gm 11/04/18 mcg/actuation nasal spray,suspension losartan 50 mg tablet 50 mg PO HS #90 tab 11/04/18 montelukast 10 mg tablet 10 mg PO QPM #90 tab 11/04/18 desonide 0.05 % topical cream 1 applic TOPICAL BID PRN #60 gm 11/28/18 Allergies Allergy/AdvReac Type Severity Reaction Status Date / Time lisinopril AdvReac Intermediate JAUNDICE Verified 08/22/19 11:24 hydrochlorothiazide AdvReac JAUNDICE Verified 08/22/19 11:24 General Stated Complaint: Vascular TYLER: 3 Review of Systems <Lydia Handley - Last Filed: 08/30/19 22:57> Narrative: Constitutional: Negative for weight loss, alert and oriented, well groomed, normal body habitus, appears comfortable. HEENT: Denies trauma, headaches, blurry vision, nasal discharge, sore throat, trouble swallowing. Chest: Denies chest pain, palpitations, irregular rhythm, hypertension. Respiratory: Denies worsening shortness of breath, cough, hemoptysis. GI: Denies abdominal pain, nausea, vomiting, diarrhea, constipation. Extremities: Right forearm ecchymosis, swelling and reports of pressure. : Denies dysuria, hematuria, flank pain, rectal bleeding. Neuro: Denies dizziness, blurry vision, weakness, syncope, headache or facial numbness. Hematologic: Positive easy bruising, is on anticoagulants, intolerance to heat or cold, hair loss. [facility] <Lydia Handley - Last Filed: 08/30/19 22:57> Medical History Essential hypertension (Acute) Low HDL (under 40) (Acute) Low HDL (under 40) (Acute) Morbid obesity (Acute) Nasal polyps (Acute) KENTRELL on CPAP (Chronic) Patellofemoral disorder of left knee (Acute) Surgical History H/O colonoscopy (Resolved 03/29/18) Dr Briones, no abnormalities, repeat 10 years Family History Mother Diabetes Addisons disease Father Essential hypertension Maternal Grandfather , 59 Lung cancer Smoker Paternal Grandfather No problems noted. Maternal Grandmother , 86 No problems noted. Paternal Grandmother No problems noted. Social History Smoking/Tobacco Use Status: Current-Occasional Tobacco Type: pipe Quit status: not considering quitting Second Hand Exposure: Yes Alcohol Intake: current Alcohol Intake frequency: a few times a month Alcohol type: beer, wine and hard liquor Drug use: Never Substance use type: former substance user Caregiver/Support person: No Household members: significant other Housing: house Communication Needs: None Do you need help understanding health information?: Never Pets and animals: Yes Pets and animals: cat(s) Sexually active: Yes Do you think of yourself as: bisexual Current gender identity: male What is your relationship status?: living with partner How often do you talk on the phone with friends or family?: three or more times per week How often do you get together with friends or relatives?: twice per week How often do you attend episcopal or yazdanism services?: decline to answer Do you belong to any clubs or organized social groups?: yes Panel score (0-1 are the most socially isolated patients): 3 What type of physical activity do you participate in: walking Duration: 15-30 minutes/day Frequency: 3-4 times per week Mary/Episcopal: None Special mary needs: No Seatbelt use: always Helmet use: No Drive intox or ride w/intox river driver: No Do you feel safe at home: Yes Do you feel safe in your relationship?: Yes Exam <Lydia Handley - Last Filed: 08/30/19 22:57> Narrative Exam Narrative: Constitutional: Alert and oriented x3. Appears stated age. Obese body habitus. Head: Normocephalic, no trauma. Eyes: Pupils PERRLA, Red reflex noted, EOM's intact. Eyelids symmetrical without lesions, discharge, or swelling. ENT: Bilateral TM's WNL, External ear normal to inspection, no mastoid TTP, swelling, or erythema, Nasal turbinates WNL, no nasal discharge. Normal dentition, Posterior pharynx WNL, no exudate. Chest: RRR, Normal S1, S2, distal pulses intact. Resp: Lungs clear to auscultation bilaterally, no wheezes, rales, or rhonchi. Musculoskeletal: Normal gait, 5/5 strength to all four extremities. Increased swelling noted to right forearm. Skin: Large area of ecchymosis noted to the inner forearm approximately 18 cm x 9 cm. capillary refill approximately 3-4 sec. Neurologic: Cranial nerves II-XII intact. Alert and oriented x 3. DTR's intact. Hematologic/Lymphatic: Positive ecchymosis as noted above. No lymphadenopathy. Very weak radial pulse palpated right extremity. Extrem Right upper extremity: elbow/forearm Details: swelling and ecchymosis Course <Lydia Stokeston - Last Filed: 08/30/19 22:57> Vital Signs Vital signs: Vital Signs Temperature 37.2 C 08/30/19 17:00 Pulse 85 08/30/19 17:00 Respiratory Rate 22 08/30/19 17:00 Blood Pressure 195/92 H 08/30/19 17:00 Pulse Oximetry 95 08/30/19 17:00 Temperature 37.2 C 08/30/19 17:00 Temperature Source Skin 08/30/19 17:00 Pulse 85 08/30/19 17:00 Respiratory Rate 22 08/30/19 17:00 Respiratory Effort Non-Labored 08/30/19 17:08 Respiratory Depth Normal 08/30/19 17:08 Respiratory Pattern Normal 08/30/19 17:08 Blood Pressure 195/92 H 08/30/19 17:00 Blood Pressure Position Sitting 08/30/19 17:00 Pulse Oximetry 95 08/30/19 17:00 Oxygen Delivery Method Room Air 08/30/19 17:00 Oxygen Flow Rate 0 08/30/19 17:00
[2019-08-30 18:11] LABS: Abs Immature Grans 0.05 k/cumm (0.0-0.09); Absolute Basophil Count 0.02 k/cumm (0.0-0.2); Absolute Eosinophil Count 0.43 k/cumm (0.0-0.7); Absolute Lymphocyte Count 2.21 k/cumm (1.2-3.4); Absolute Monocyte Count 0.95 k/cumm (0.11-0.7); Basophils % 0.2; HCT 38.6 % (40.0-50.0); HGB 13.3 g/dL (13.5-17.5); Immature Grans % 0.5 %; Lymphocytes % 20.4; Mean Corp. HGB Concentration 34.5 g/dL (32.0-36.0); Mean Platelet Volume 10.3 fL (8.0-11.0); Monocytes % 8.8; Neutrophils % 66.1; Platelet Count 242 x1000/uL (130-400); RBC 4.29 m/cumm (4.50-6.00); RBC Distribution Width 13.9 % (11.8-14.1); White Blood Cell Count 10.84 k/cumm (4.4-10.8)
[2019-08-30 18:18] LABS: INR 1.4 (0.9-1.1); Prothrombin Time 13.7 sec (9.3-11.0)
[2019-08-30 18:20] LABS: Absolute Neutrophil Count 7.17 k/cumm (1.2-6.7)
[2019-08-30 18:21] LABS: ALT 32 U/L (16-63); AST 23 U/L (15-37); Albumin 3.2 g/dL (3.4-5.0); Alkaline Phosphatase 64 U/L (46-116); Anion Gap 7.9 mmol/L (3-11); BUN 10 mg/dL (7-18); Bilirubin, Total 0.6 mg/dL (0.2-1.0); CO2 25.1 mmol/L (21.0-32.0); CREATININE 0.92 mg/dL (0.70-1.30); Calcium 8.8 mg/dL (8.5-10.1); Chloride 104 mmol/L (98-107); Glucose 103 mg/dL (74-106); Potassium 3.9 mmol/L (3.5-5.1); Sodium 137 mmol/L (136-145); Total Protein 7.3 g/dL (6.4-8.2)
[2019-08-30] MEDS: Omnipaque 350 MG/ML 100 ML BTL IJ (19:02)
[2019-08-30] MEDS: Normal Saline - Diluent 50 ML VIAL IV (19:02)
[2019-08-30] MEDS: Normal Saline Flush 10 ML SYR IVP (19:03)
--- NOTE | 2019-08-30 19:10 | DI.CT_ITS ---
EXAM: CT UPPER EXTREMITY RT CTA CLINICAL HISTORY: Hematoma, on coumadin, increased swelling COMPARISON: CT CT CHEST PE CTA from 08/22/2019 FINDINGS: CT angiography of the right forearm was obtained. Patient has a history of suspected hematoma. CT c onfirms an apparent intramuscular hematoma of the flexor musculature of the proximal forearm measurin g up to about 8 x 7 x 4 cm. There is a rounded contrast collection adjacent to the proximal radial artery about 3 cm distal to th e origin of radial recurrent artery, this may represent active contrast extravasation versus pseudoan eurysm. Additional small focal areas of apparent active contrast extravasation are also in this area . An additional small possible pseudoaneurysm may be present. Distal portion of the scan shows decreased opacification of the digital arterial branches of the fing ers, presumably due to timing of the scan. IMPRESSION: Active extravasation associated with large right forearm hematoma. Possible pseudoaneurysm as descri bed above.
--- NOTE | 2019-08-30 19:49 | DI.VRAD_ITS ---
PROCEDURE INFORMATION: Exam: CTA Right Upper Extremity With Contrast Exam date and time: 08/30/2019 7:07 PM Age: 53 years old Clinical indication: Arm, lower; Right; Patient HX: Hematoma, on coumadin, increased swelling TECHNIQUE: Imaging protocol: Computed tomographic angiography of the Right upper extremity with intravenous contrast material, including non-contrast images if performed. 3D rendering: MIP and/or 3D reconstructed images were created by the technologist. COMPARISON: CT CHEST PE CTA 08/22/2019 2:00 PM FINDINGS: There is a normal variant high bifurcation of the brachial artery which lies above the proximal most end of the scan range which starts in the distal 3rd of the upper arm. There is a small pseudoaneurysm arising from the anterolateral margin of the proximal radial artery at the level of the proximal forearm, about 3 cm distal to the origin of the radial recurrent artery, measuring 5 x 3 x 4 mm. Just distal to this is a 2nd component of either thin neck pseudoaneurysm or simply active contrast extravasation from active hemorrhage lying just posterior and distal to the 1st pseudoaneurysm, tracking about 10 mm in length and measuring about 4 mm in maximum width. There is mild extrinsic mass effect on the proximal radial artery from the intramuscular hematoma, however there is no evidence of arterial occlusion/thrombosis. No dissection flap is identified. The ulnar artery is unremarkable. Non opacification of the digital arterial branches in all fingers is felt to be related to the early contrast phase, with the scan out running the bolus, given the diffuse involvement. Soft tissues: Heterogeneous mixed isodense edema and hypodensities seen tracking in the flexor musculature of the volar medial proximal forearm consistent with intramuscular hematoma involving primarily pronator teres measuring approximately 7 x 4 x 8 cm. No acute contrast accumulation within the hematoma itself is seen at this time to suggest active hemorrhage in this particular site. IMPRESSION: 1. Large intramuscular hematoma involving the flexor musculature of the proximal medial volar forearm, primarily involving pronator teres, measuring 7 x 4 x 8 cm. There is significant expansion of the muscle, clinical correlation is recommended regarding any evidence of associated medial nerve entrapment/dysfunction. 2. There is a 5 x 3 x 4 mm pseudoaneurysm arising from the proximal radial artery about 3 cm distal to the origin of the radial recurrent artery in the forearm. 3. There is a 2nd thin necked pseudoaneurysm versus active lobular contrast accumulation related to active hemorrhage just distal to the 1st described pseudoaneurysm, measuring about 10 mm in length by up to about 4 mm in width. 4. No evidence of arterial occlusion/thrombosis. 5. Normal variant high bifurcation of the brachial artery, which bifurcates above the level of the beginning of the scan in the upper arm. 6. These findings initiated a critical results reporting process. An addendum will be issued at the time of clincian notification. Dictated and Authenticated by: Jh Moser MD. Ordering:LOLIS Freeman MD
--- NOTE | 2019-08-30 20:16 | DI.VRAD_ITS ---
Addendum created by Jh Moser MD on 08/30/2019 8:15:47 PM EDT Addendum: THIS REPORT CONTAINS FINDINGS THAT MAY BE CRITICAL TO PATIENT CARE. The findings were verbally communicated via telephone conference with Lydia Handley at 8:15 PM EDT on 08/30/2019. The findings were acknowledged and understood. Initial report created on 08/30/2019 7:48:32 PM EDT PROCEDURE INFORMATION: Exam: CTA Right Upper Extremity With Contrast Exam date and time: 08/30/2019 7:07 PM Age: 53 years old Clinical indication: Arm, lower; Right; Patient HX: Hematoma, on coumadin, increased swelling TECHNIQUE: Imaging protocol: Computed tomographic angiography of the Right upper extremity with intravenous contrast material, including non-contrast images if performed. 3D rendering: MIP and/or 3D reconstructed images were created by the technologist. COMPARISON: CT CHEST PE CTA 08/22/2019 2:00 PM FINDINGS: There is a normal variant high bifurcation of the brachial artery which lies above the proximal most end of the scan range which starts in the distal 3rd of the upper arm. There is a small pseudoaneurysm arising from the anterolateral margin of the proximal radial artery at the level of the proximal forearm, about 3 cm distal to the origin of the radial recurrent artery, measuring 5 x 3 x 4 mm. Just distal to this is a 2nd component of either thin neck pseudoaneurysm or simply active contrast extravasation from active hemorrhage lying just posterior and distal to the 1st pseudoaneurysm, tracking about 10 mm in length and measuring about 4 mm in maximum width. There is mild extrinsic mass effect on the proximal radial artery from the intramuscular hematoma, however there is no evidence of arterial occlusion/thrombosis. No dissection flap is identified. The ulnar artery is unremarkable. Non opacification of the digital arterial branches in all fingers is felt to be related to the early contrast phase, with the scan out running the bolus, given the diffuse involvement. Soft tissues: Heterogeneous mixed isodense edema and hypodensities seen tracking in the flexor musculature of the volar medial proximal forearm consistent with intramuscular hematoma involving primarily pronator teres measuring approximately 7 x 4 x 8 cm. No acute contrast accumulation within the hematoma itself is seen at this time to suggest active hemorrhage in this particular site. IMPRESSION: 1. Large intramuscular hematoma involving the flexor musculature of the proximal medial volar forearm, primarily involving pronator teres, measuring 7 x 4 x 8 cm. There is significant expansion of the muscle, clinical correlation is recommended regarding any evidence of associated medial nerve entrapment/dysfunction. 2. There is a 5 x 3 x 4 mm pseudoaneurysm arising from the proximal radial artery about 3 cm distal to the origin of the radial recurrent artery in the forearm. 3. There is a 2nd thin necked pseudoaneurysm versus active lobular contrast accumulation related to active hemorrhage just distal to the 1st described pseudoaneurysm, measuring about 10 mm in length by up to about 4 mm in width. 4. No evidence of arterial occlusion/thrombosis. 5. Normal variant high bifurcation of the brachial artery, which bifurcates above the level of the beginning of the scan in the upper arm. 6. These findings initiated a critical results reporting process. An addendum will be issued at the time of clincian notification. Dictated and Authenticated by: Jh Moser MD. Ordering:LOLIS Freeman MD
[2019-08-30 23:07] VITALS: PULSE 86; RESP 20; TEMP 37.2; O2SAT 95
== END 2019-08-30 23:05 | disposition short-term general hospital (02) ==
PROVIDERS: Emergency Provider Registered Nurse Emergency; PCP Family Medicine
DX: I72.1 Aneurysm of artery of upper extremity (principal); S50.11XA Contusion of right forearm, initial encounter; T80.89XA Other complications following infusion, transfusion and therapeutic injection, initial encounter; Z79.01 Long term (current) use of anticoagulants; I10 Essential (primary) hypertension
CPT/HCPCS: 36415; 73206; 80053; 99285; 85025; 85610; J3490

== ENCOUNTER 2019-09-12 11:27 | Outpatient (CLI) | payer OTHER, SELFPAY ==
[2019-09-12 12:44] LABS: Prothrombin Time 38.4 sec (9.3-11.0)
== END 2019-09-12 11:47 ==
PROVIDERS: PCP Family Medicine; Visit Provider Family Medicine
DX: I26.99 Other pulmonary embolism without acute cor pulmonale (principal); Z79.01 Long term (current) use of anticoagulants
CPT/HCPCS: 36415; 85610

== ENCOUNTER 2019-12-19 00:38 | Outpatient (CLI) | payer OTHER, SELFPAY ==
[2019-12-19 13:44] LABS: Hemoglobin A1C 6.3 % (<5.7)
[2019-12-19 14:34] LABS: AST 21 U/L (15-37); Albumin 3.8 g/dL (3.4-5.0); Alkaline Phosphatase 107 U/L (46-116); Anion Gap 12.1 mmol/L (3-11); BUN 12 mg/dL (7-18); Bilirubin, Total 0.6 mg/dL (0.2-1.0); CO2 22.9 mmol/L (21.0-32.0); CREATININE 0.94 mg/dL (0.70-1.30); Calcium 9.1 mg/dL (8.5-10.1); Calculated LDL 132 mg/dL (<100); Chloride 104 mmol/L (98-107); Cholesterol 195 mg/dL (<200); Glucose 136 mg/dL (74-106); HDL Cholesterol 34 mg/dL (40-60); Potassium 3.7 mmol/L (3.5-5.1); Sodium 139 mmol/L (136-145); Total Protein 7.5 g/dL (6.4-8.2); Triglyceride 148 mg/dL (<150)
[2019-12-19 15:09] LABS: ALT 36 U/L (16-63)
== END 2019-12-19 00:58 ==
PROVIDERS: PCP Family Medicine; Visit Provider Family Medicine
DX: Z00.00 Encounter for general adult medical examination without abnormal findings (principal); I10 Essential (primary) hypertension; E78.6 Lipoprotein deficiency; G47.33 Obstructive sleep apnea (adult) (pediatric); Z83.3 Family history of diabetes mellitus
CPT/HCPCS: 36415; 80053; 80061; 83036

== ENCOUNTER 2020-09-10 03:09 | Outpatient (CLI) | payer OTHER, SELFPAY ==
[2020-09-10 13:16] LABS: BUN 11 mg/dL (7-18); Chloride 103 mmol/L (98-107); Glucose 206 mg/dL (74-106); Sodium 139 mmol/L (136-145)
== END 2020-09-10 03:10 | disposition home or self-care (01) ==
LOC: LBO 03:09
PROVIDERS: PCP Nurse Practitioner Family; Visit Provider Emergency Medicine
DX: I10 Essential (primary) hypertension (principal); E11.9 Type 2 diabetes mellitus without complications
CPT/HCPCS: 36415; 80048; 83036

== ENCOUNTER 2020-11-08 10:53 | Outpatient (CLI) | payer OTHER, SELFPAY ==
[2020-11-08 12:57] LABS: Calculated LDL 114 mg/dL (<100); Cholesterol 180 mg/dL (<200); HDL Cholesterol 36 mg/dL (40-60); Triglyceride 153 mg/dL (<150)
== END 2020-11-08 10:54 | disposition home or self-care (01) ==
LOC: LOS 10:53
PROVIDERS: PCP Nurse Practitioner Family; Visit Provider Nurse Practitioner Family
DX: E78.6 Lipoprotein deficiency (principal)
CPT/HCPCS: 36415; 80061

== ENCOUNTER 2021-12-09 01:10 | Outpatient (CLI) | payer OTHER, SELFPAY ==
--- OUTSIDE RECORDS SUMMARY | 2021-12-09 01:16 | XMS_ITS | Encounter Summary ---
:1965 Author Organization [place] [address] Care Team Providers Name Role Phone Claudio Alegre MD Primary Care Provider Reason for Referral Diagnostic Test (Routine) - Closed Specialty Diagnoses / Procedures Referred By Contact Refer red To Contact Cardiology Diagnoses Other acute pulmonary embolism without acute cor pulmonale Epifanio Hassan MD [facility] Non-Inv Card Lab Procedures Echocardiogram Transthoracic([facility]) [facility] [place] [phone] [facility] [place] [id number] Referral ID Status Reason Start Date Expiration Date Visits V isits Requested Authorized [id number] Closed Specialty 08/25/2019 08/24/2020 1 1 Service Requested Reason for Visit Diagnostic Test (Routine) - Closed Specialty Diagnoses / Procedures Referred By Contact Refer red To Contact Cardiology Diagnoses Other acute pulmonary embolism without acute cor pulmonale Epifanio Hassan MD [facility] Non-Inv Card Lab Procedures Echocardiogram Transthoracic([facility]) [facility] [place] [phone] [facility] [place] [id number] Referral ID Status Reason Start Date Expiration Date Visits V isits Requested Authorized [id number] Closed Specialty 08/25/2019 08/24/2020 1 1 Service Requested Encounter Details Date Type Department Care Team Description 09/11/2019 Hospital Encounter Non-Invasive Alyssa Hawkins acu te Cardiology Lab Kahlil Moraes pulmonary embolism [facility] [address] reddy [facility] [place] [phone] Social History Tobacco Use Types Packs/Day Years Used Date Never Assessed Sex Assigned at Date Recorded Not on file documented as of this encounter Medications at Time of Discharge Medication Sig Dispensed Refills Start Date End Date acetaminophen Take 1 tablet by mouth 30 tablet 1 09/01/2019 (Tylenol) 500 mg every 4 hours as Tablet needed for Pain (For Mild Pain (1-3) or Fever.). fluticasone propionate 1 spray by Each Nare 0 (FLONASE) 50 route daily. mcg/actuation [place], Suspension montelukast Take 10 mg by mouth 0 (Singulair) 10 mg daily. Tablet enoxaparin (LOVENOX) Inject 1.19 mLs 8 Syringe 0 09/05/2019 09/23/2019 150 mg/mL Syringe subcutaneously every 12 hours. enoxaparin (LOVENOX) Inject 1.8 mLs 30 Syringe 1 09/01/2019 09/23/2019 100 mg/mL Syringe subcutaneously 2 times daily. warfarin (Coumadin) 5 Take 1 tablet by mouth 90 tablet 3 10/12/2020 mg Tablet daily. atenoloL-chlorthalidon TAKE 1 TABLET BY MOUTH 0 0 07/05/2019 10/12/2020 e (TENORETIC) 100-25 AT BEDTIME mg Tablet losartan (Cozaar) 25 Take 50 mg by mouth 0 10/12/2020 mg TabletIndications: every evening. hypertension Indications: high blood pressure documented as of this encounter Plan of Treatment Not on filedocumented as of this encounter Procedures Procedure Name Priority Date/Time Associated Comments Diagnosis ECHOCARDIOGRAM COMPLETE Routine 09/11/2019 8:24 AM Other acute Results for this W CONTRAST EDT pulmonary embolism procedure are in without acute cor the result s pulmonale section. documented in this encounter Results ECHOCARDIOGRAM COMPLETE W CONTRAST (09/11/2019 8:24 AM EDT) P athologist Signature EF 62 [employer] SYSTEM Specimen (Source) Anatomical Location Collection Method / Collectio n Time Received Time / Laterality Volume 09/11/2019 Narrative [facility] - 09/11/2019 8:52 AM EDT Procedure: ?Transthoracic Echocardiogram Patient: ?BENJAMIN ORELLANA ?(Age): 1965(53y) Med Rec#: ? [id number] ?Sex: ?M ? Site Loc: ? [facility] ?Ht / Wt: ??180(cm)/178(kg) Pt. Loc: ?Echo Lab ?BSA: ?2.8 Study Date: ?? 09/11/2019 ?Pt. Type: Outpatient Tape: ? Referring: Richar Hawkins ??([id number]) Referring: ANN Reading: Joao Guerrero ([id number]) Electric Stove Installer: Shelton Breaux [facility] Diagnosis: *Other pulmonary embolism without acute cor pulmonale (I26.99) BP: ? 144/58 SUMMARY: 1. Technically limited 2. The left ventricular chamber size is normal. Left ventricular wall thickness is normal. There is no evidenc e of LVOT obstruction. Global left ventricular wall motion and contrac tility are probably within normal limits. The quantitative left meche tricular ejection fraction by biplane Pradhan's method is 62%. There a re no left ventricular segmental wall motion abnormalities. 3. The left atrium is normal in size. 4. The right ventricle is mildly dilated . Right ventricular global systolic function is normal. No pulmonar y hypertension is noted. The estimated pulmonary artery systolic pres sure is 35 mmHg. 5. There is no hemodynamically significa nt valve disease. 6. Compared to 08/23/2019 the right ventri alf is less dilated, right ventricular systolic function has improv ed and estimated pulmonary artery systolic pressure has decreased. Findings ? : Study Quality: ? Technically limited Left Ventricle: ? The left ventricul ar chamber size is normal. ?Left ventricular wall thickness is normal. ?There is no evidence of LVOT obstr uction. ?No ventricular septal defect is vi sualized. ?Global left ventricular wall motio n and contractility are probably within normal limits. ?There is normal global left ventri cular systolic function. ?The quantitative left ventricular ejection fraction by biplane Pradhan's method is 62%. ?There are no left ventricular segm ental wall motion abnormalities. ?The left ventricular diastolic paul ling pattern is consistent with impaired LV relaxation. ?Doppler assessment is consistent w ith normal left sided filling pressure. Left Atrium: ? The left atrium is no rmal in size. Right Ventricle: ? The right ventric le is mildly dilated. ?Right ventricular global systolic function is normal. ?No pulmonary hypertension is noted . ?The estimated pulmonary artery sys tolic pressure is 35 mmHg. ?The estimated right atrial pressur e is 3 mmHg. Right Atrium: ? The right atrium is mildly dilated. Aortic Valve: ? The aortic valve is not well visualized. ?The aortic valve is probably tricu spid. ?Systolic excursion of the aortic v alve is normal. ?There is no evidence of aortic federico ve stenosis. ?There is no evidence of aortic reg urgitation. Mitral Valve: ? The mitral valve elfego ears normal in structure and function. ?There is trace mitral regurgitatio n present. Tricuspid Valve: ? The tricuspid federico ve appears normal in structure and function. ?There is trace tricuspid regurgita tion present. Contrast enhanced. Pulmonic Valve: ? The pulmonic valve appears normal in structure and function. ?There is trace pulmonic regurgitat ion present. Pericardium: ? The pericardium appea rs normal and there is no evidence of a pericardial effusion. Aorta: ? The aortic root is normal i n size. ?The ascending aorta is normal in s ize. Pulmonary Artery: ? The main pulmona ry artery appears normal. Venous: ? The inferior vena cava elfego ears normal in size. ?There is a greater than 50% respir atory change in the inferior vena cava dimension. Misc: ? There is no hemodynamically significant valve disease. ?See remainder of report for additi onal findings. ?Two-dimensional echo, spectral Dop pler and color Doppler performed. ?Definity contrast (one 1.5 ml vial )was used to enhance endocardial definition. Excess contrast was discarde d. Chambers 2D ?Value ?Units (Range) ? IVSd (2D) ? 1 ?cm ? LVPWd (2D) ?0.86 ? cm ? IVS:LVPW ratio (2D) 1.16 ? ratio ? RWT (2D) ?0.31 ? ratio ? RWT PW (2D) ? 0.28 ? ratio ? LVIDd (2D) ?6.08 ? cm ? LVIDs (2D) ?4.09 ? cm ? LVIDd (2D) index ?2.17 ? cm/m2 ? LVIDs (2D) index ?1.46 ? cm/m2 ? LV FS (2D) ?32.64 ?% ? EF Teichholz (2D) ?? 60.11 ?% ? Ao root diameter (2D3.44 ? cm (2.1 - 3.6) ? Ascending Ao ?3.52 ? cm (2 - 3.5) ? Volumes/Mass ?Value ?Units (Range) ? LA Area 4 CH ?22.1 ? cm2 (<21) ? LA ESV BP (A/L) inde26.14 ? ml/m2 ? RA AREA 4CH ? 18.3 ? cm2 ? LV ESV SP 4CH (MOD) 60.71 ? ml ? LV ESV SP 2CH (MOD) 64.33 ? ml ? LV EDV BP ? 169.54 ? ml ? LV ESV BP ? 63.86 ?ml ? LV EDV BP index ? 60.45 ?ml/m2 ? LV ESV BP index ? 22.77 ?ml/m2 ? BP EF (MOD) ? 62.33 ?% ? LV mass (2D) ?230.51 ? g ? LV mass (2D) index ??82.19 ?g/m2 ? Diastolic/Systolic Function ?Value ?Units (Range) ? MV E-wave Vmax ?1.04 ? m/sec ? MV deceleration gugm797.85 ? m sec ? MV A-wave Vmax ?0.79 ? m/sec ? MV E:A ratio ?1.31 ? ratio ? LV septal e' Vmax ?? 0.09 ? m/sec ? LV lateral e' Vmax ??0.12 ? m/sec ? LV average e' Vmax ??0.11 ? m/sec ? LV E:e' septal ratio11.53 ? ratio ? LV E:e' lateral rati8.65 ? ratio ? LV average E:e' rati9.88 ? ratio ? Tricuspid Valve ?Value ?Units (Range) ? TR Vmax ? 2.83 ? m/sec ? TR peak gradient ?32.02 ?mmHg ? RAP ? 3 ?mmHg ? RVSP ?35 ? mmHg ? Wall Motion: Segment Name ?Rest ? Base-Anteroseptal ?? Normal ? Base-Anterior ? Normal ? Base-Anterolateral ??Normal ? Base-Posterolateral Normal ? Base-Inferior ? Normal ? Base-Inferoseptal ?? Normal ? Mid-Anteroseptal ?Normal ? Mid-Anterior ?Normal ? Mid-Anterolateral ?? Normal ? Mid-Posterolateral ??Normal ? Mid-Inferior ?Normal ? Mid-Inferoseptal ?Normal ? [place]-Septal ? Normal ? [place]-Anterior ? Normal ? [place]-Lateral ?Normal ? [place]-Inferior ? Normal ? [place]-Tip ?Normal ? This report has been electronically sign ed by: _ Joao Guerrero MD ? 09/11/2019 08:52 :06 Images reviewed and interpretation divina najera [facility] Cardiac Ultrasound Laboratory Procedure Note Joao Guerrero MD - 09/11/2019Formattin g of this note might be different from the original. Procedure: Transthoracic Echocardiogram Patient: BENJAMIN RODRIGUEZ(Age): 1965(53y) Med Rec#: [id number] Sex: M Site Loc: [facility] Ht / Wt: 180(cm)/178(kg) Pt. Loc: Echo Lab BSA: 2.8 Study Date: 09/11/2019 Pt. Type: Outpati ent Tape: Referring: Rcihar Hawkins ([id number]) Referring: ANN Reading: Joao Guerrero ([id number]) Electric Stove Installer: Shelton Breaux [facility] Diagnosis: *Other pulmonary embolism without acute cor pulmonale (I26.99) BP: 144/58 SUMMARY: 1. Technically limited 2. The left ventricular chamber size is normal. Left ventricular wall thickness is normal. There is no evidenc e of LVOT obstruction. Global left ventricular wall motion and contrac tility are probably within normal limits. The quantitative left meche tricular ejection fraction by biplane Pradhan's method is 62%. There a re no left ventricular segmental wall motion abnormalities. 3. The left atrium is normal in size. 4. The right ventricle is mildly dilated . Right ventricular global systolic function is normal. No pulmonar y hypertension is noted. The estimated pulmonary artery systolic pres sure is 35 mmHg. 5. There is no hemodynamically significa nt valve disease. 6. Compared to 08/23/2019 the right ventri alf is less dilated, right ventricular systolic function has improv ed and estimated pulmonary artery systolic pressure has decreased. Findings : Study Quality: Technically limited Left Ventricle: The left ventricular sun mber size is normal. Left ventricular wall thickness is norm al. There is no evidence of LVOT obstructio n. No ventricular septal defect is visuali zed. Global left ventricular wall motion and contractility are probably within normal limits. There is normal global left ventricular systolic function. The quantitative left ventricular eject ion fraction by biplane Pradhan's method is 62%. There are no left ventricular segmental wall motion abnormalities. The left ventricular diastolic filling pattern is consistent with impaired LV relaxation. Doppler assessment is consistent with n ormal left sided filling pressure. Left Atrium: The left atrium is normal i n size. Right Ventricle: The right ventricle is mildly dilated. Right ventricular global systolic funct ion is normal. No pulmonary hypertension is noted. The estimated pulmonary artery systolic pressure is 35 mmHg. The estimated right atrial pressure is 3 mmHg. Right Atrium: The right atrium is mildly dilated. Aortic Valve: The aortic valve is not we ll visualized. The aortic valve is probably tricuspid. Systolic excursion of the aortic valve is normal. There is no evidence of aortic valve st enosis. There is no evidence of aortic regurgit ation. Mitral Valve: The mitral valve appears n ormal in structure and function. There is trace mitral regurgitation pre sent. Tricuspid Valve: The tricuspid valve elfego ears normal in structure and function. There is trace tricuspid regurgitation present. Contrast enhanced. Pulmonic Valve: The pulmonic valve appea rs normal in structure and function. There is trace pulmonic regurgitation p resent. Pericardium: The pericardium appears nor mal and there is no evidence of a pericardial effusion. Aorta: The aortic root is normal in size . The ascending aorta is normal in size. Pulmonary Artery: The main pulmonary art yoko appears normal. Venous: The inferior vena cava appears n ormal in size. There is a greater than 50% respiratory change in the inferior vena cava dimension. Misc: There is no hemodynamically signif icant valve disease. See remainder of report for additional findings. Two-dimensional echo, spectral Doppler and color Doppler performed. Definity contrast (one 1.5 ml vial)was used to enhance endocardial definition. Excess contrast was discarde d. Chambers 2D Value Units (Range) IVSd (2D) 1 cm LVPWd (2D) 0.86 cm IVS:LVPW ratio (2D) 1.16 ratio RWT (2D) 0.31 ratio RWT PW (2D) 0.28 ratio LVIDd (2D) 6.08 cm LVIDs (2D) 4.09 cm LVIDd (2D) index 2.17 cm/m2 LVIDs (2D) index 1.46 cm/m2 LV FS (2D) 32.64 % EF Teichholz (2D) 60.11 % Ao root diameter (2D3.44 cm (2.1 - 3.6) Ascending Ao 3.52 cm (2 - 3.5) Volumes/Mass Value Units (Range) LA Area 4 CH 22.1 cm2 (<21) LA ESV BP (A/L) inde26.14 ml/m2 RA AREA 4CH 18.3 cm2 LV ESV SP 4CH (MOD) 60.71 ml LV ESV SP 2CH (MOD) 64.33 ml LV EDV BP 169.54 ml LV ESV BP 63.86 ml LV EDV BP index 60.45 ml/m2 LV ESV BP index 22.77 ml/m2 BP EF (MOD) 62.33 % LV mass (2D) 230.51 g LV mass (2D) index 82.19 g/m2 Diastolic/Systolic Function Value Units (Range) MV E-wave Vmax 1.04 m/sec MV deceleration [id number] msec MV A-wave Vmax 0.79 m/sec MV E:A ratio 1.31 ratio LV septal e' Vmax 0.09 m/sec LV lateral e' Vmax 0.12 m/sec LV average e' Vmax 0.11 m/sec LV E:e' septal ratio11.53 ratio LV E:e' lateral rati8.65 ratio LV average E:e' rati9.88 ratio Tricuspid Valve Value Units (Range) TR Vmax 2.83 m/sec TR peak gradient 32.02 mmHg RAP 3 mmHg RVSP 35 mmHg Wall Motion: Segment Name Rest Base-Anteroseptal Normal Base-Anterior Normal Base-Anterolateral Normal Base-Posterolateral Normal Base-Inferior Normal Base-Inferoseptal Normal Mid-Anteroseptal Normal Mid-Anterior Normal Mid-Anterolateral Normal Mid-Posterolateral Normal Mid-Inferior Normal Mid-Inferoseptal Normal [place]-Septal Normal [place]-Anterior Normal [place]-Lateral Normal [place]-Inferior Normal [place]-Tip Normal This report has been electronically sign ed by: _ Joao Guerrero MD 09/11/2019 08:52:06 Images reviewed and interpretation verif ied [facility] Cardiac Ultrasound Laboratory Richar Hawkins MD ECHO ORDERABLES Performing Organization Address City/State/ZIP Code Phon e Number [facility] documented in this encounter Visit Diagnoses Diagnosis Other acute pulmonary embolism without a cute cor pulmonale documented in this encounter Administered Medications Inactive Administered Medications - up to 3 most recent administrations Medication Order MAR Action Action Date Dose Rate Site perflutren lipid microspheres Given 09/11/2019 7:55 AM EDT 0.8 m Ls (DEFINITY) injection 0.8 mL 0.8 mL, Intravenous, ONCE PRN, 1 dose, Starting on Lillie 09/11/19 at 0824, Until Lillie 09/11/19 at 0755, Other, for enhancement of sub-optimal echo images, Echo Lab (Intra-Procedure), Routine documented in this encounter Care Teams Continuous Conveyor Screen Drier Relationship Specialty Start Date End Date Claudio Alegre MD PCP - General General Internal Medicine 09/01/19 [address] [facility] [address] [place] [address] documented as of this encounter
--- OUTSIDE RECORDS SUMMARY | 2021-12-09 01:16 | XMS_ITS | Encounter Summary ---
:1965 Author Organization [facility] [place] [address] Care Team Providers Name Role Phone Claudio Alegre MD Primary Care Provider Reason for Visit Reason Comments Pulmonary Embolism Follow-up Encounter Details Date Type Department Care Team Description 04/13/2020 TH Visit Vascular Surgery at [facility], Venous i nsufficiency of left leg; (TeleHealth) [facility] MD Richar Other acute pulmonary embolism with acut e cor pulmonale [facility] [address] [place] CARDIOLOGY DEPT [address] [place] [address] [phone] Social History Tobacco Use Types Packs/Day Years Used Date Never Assessed Sex Assigned at Date Recorded Not on file documented as of this encounter Progress Notes Richar Hawkins MD - 04/13/2020 3:30 PM EST CARDIOLOGY/VASCULAR MEDICINE TELE VISIT NOTE Jack Handley 04/13/20 The patient consented to this being a virtual visit. HPI: Jack Handley is a 54 y.o. year old male with a history of KENTRELL, obesity, hypertension who was admitted in August 2019 with submassive (intermediate-high risk) PE. He presented to [facility] with several day history of shortness of breath and dry cough, found to be hypoxic, and consequent work up with bilateral PE with RV strain. He was placed on BiPAP with improvement in oxygen saturations. He was started on AC with lovenox 1 mg/kg BID. Transferred to [facility] for consideration of advanced therapies - troponin 0.03, proBNP 4300.??COVID-19 negative.??He has remained hemodynamically stable, weaned off BiPAPto NC.??TTE with moderately dilated RV with moderately reduced RV function, PASP 55 mm Hg + RAP. DVTduplex with left calf DVT. Given improvement with AC alone, there was no need for advanced therapies. Given weight >140 kg, he was started on Coumadin with Lovenox bridging. He did have desaturations with oxygen and thus discharged with home O2. 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 He presents for follow-up. I last talked to him on September 23, 2019. He continues to improve since discharge. He is not using oxygen anymore. He overall feels quite well. He is active on every day basis; he walks around the store and around the house, independent with ADLs, without significant shortness of breath. If he does exert himself more than usual, he does have some dyspnea on exertion, but this resolves quickly. He denies angina. He is using compression stockings, and his lower extremity edema has resolved. He is tolerating warfarin without issues, and his INR has been therapeutic consistently.He denies any issues with bleeding. He tries to walk as much as possible although has no specific exercise regimen. He denies PND, orthopnea, palpitations, presyncope or syncope. Brief ROS: Activity level: Independent with ADLs No new orthopnea, PND, LE edema. No lightheadedness, dizziness, syncope/pre- syncope. No new CP. Medications: Current Outpatient Medications Medication Sig Dispense Refill ??? acetaminophen (Tylenol) 500 mg Tablet Take 1 tablet by mouth every 4 hours as needed for Pain (For Mild Pain (1-3) or Fever.). 30 tablet 1 ??? warfarin (Coumadin) 5 mg Tablet Take 1 tablet by mouth daily. 90 tablet 3 ??? atenoloL-chlorthalidone (TENORETIC) 100-25 mg Tablet TAKE 1 TABLET BY MOUTH AT BEDTIME ??? losartan (Cozaar) 25 mg Tablet Take 50 mg by mouth every evening. Indications: high blood pressure ??? fluticasone propionate (FLONASE) 50 mcg/actuation [place], Suspension 1 spray by Each Nare route daily. ??? montelukast (Singulair) 10 mg Tablet Take 10 mg by mouth daily. Medications were reviewed with patient. Objective Data: VS at home: BP 140s/80s Labs: Lab Results Component Value Date WBC 10.8 (H) 09/01/2019 HGB 12.2 (L) 09/01/2019 HCT 37.0 (L) 09/01/2019 MCV 92.0 09/01/2019 PLATELET 226 09/01/2019 No results for input(s): NA, K, CL, CO2, BUN, CREATININE, GLUCOSE in the last 168 hours. Lab Results Component Value Date INR 1.5 09/01/2019 Lab Results Component Value Date CHLPL 145 08/23/2019 HDL 24 08/23/2019 CHOLHDL 6.0 08/23/2019 TRIG 142 08/23/2019 LDLDIRECT 106 08/23/2019 TTE 09/11/19: 1. Technically limited 2. The left ventricular chamber size is normal. Left ventricular wall thickness is normal. There is no evidence of LVOT obstruction. Global left ventricular wall motion and contractility are probably within normal limits. The quantitative left ventricular ejection fraction by biplane Pradhan's method is 62%. There are no left ventricular segmental wall motion abnormalities. 3. The left atrium is normal in size. 4. The right ventricle is mildly dilated. Right ventricular global systolic function is normal. No pulmonary hypertension is noted. The estimated pulmonary artery systolic pressure is 35 mmHg. 5. There is no hemodynamically significant valve disease. 6. Compared to 08/23/2019 the right ventricle is less dilated, right ventricular systolic function has improved and estimated pulmonary artery systolic pressure has decreased. ?? TTE 08/23/2019: 1. Technically limited study. 2. The left ventricular chamber size is normal. ??Mild concentric left ventricular hypertrophy is observed. ??Global left ventricular wall motion and contractility are probably within normal limits. ??There is normal global left ventricular systolic function. ??The quantitative left ventricular ejection fraction by biplane Pradhan's method is 56%. 3. The right ventricle is not well visualized but appears at least moderately dilated. Right ventricular global systolic function is moderately reduced. Septal motion is consistent with pressure overload. The free wall of the right ventricle appears hypokinetic. The estimated pulmonary artery systolic pressure is 55 mmHg. + right atrial pressure. 4. The left atrium is normal in size. ??The right atrium is mildly dilated. 5. There is no hemodynamically significant valve disease. 6. See remainder of report for additional findings. ?? DVT duplex 08/25/2019: Interpretation: RIGHT: ??No evidence of lower extremity deep venous thrombosis. LEFT: Acute non-occlusive lower extremity deep venous thrombosis (calf vein-posterior tibial vein). Assessment: #1 Unprovoked submassive (intermediate-high risk) PE #2 Unprovoked left calf DVT #3 LLE venous insufficiency #4 Hypertension Mr. 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 He continues to do quite well and his symptoms have continued to improve. We again discussed that given unprovoked VTE, would recommend long-term anticoagulation as long as benefits outweigh the risks. We discussed that for secondary prevention, wouldbe reasonable to use apixaban 5 mg twice daily instead of warfarin. We discussed the risk and benefits of warfarin versus apixaban. He would rather switch to apixaban in the future as he does like green leafy vegetables as well as grapefruit juice, which he is not eating/drinking since on warfarin. I would like him to complete 12 months of therapy with warfarin, and then can switch him to apixaban 5 mg twice daily. Also discussed he should continue to be as active as possible as this will help to get him back to baseline prior to his pulmonary embolism. His hypertension is still not optimally controlled. I would like his blood pressure to be low 130 systolic. Consider increasing losartan, this can be done by primary care provider. Plan: 1. Continue Coumadin, INR goal 2.5 (range 2.0-3.0), plan for 12 months and then switch to apixaban 5mg twice daily. 2. Plan for long-term anticoagulation. 3. Return to clinic in 6 months, or sooner if necessary. I spent a total of 10 minutes associated with this encounter including chart review, the patient encounter, and documentation, of which more than 50% was with direct patient contact. Richar Hawkins MD, MPH, RPVI, [facility] Cardiovascular Instructional Resource TeacherReceiving And Processing Super[place] [address] documented in this encounter Plan of Treatment Not on filedocumented as of this encounter Visit Diagnoses Diagnosis Venous insufficiency of left leg Other acute pulmonary embolism with acut e cor pulmonale documented in this encounter Care Teams Authorization Nurse Relationship Specialty Start Date End Date Claudio Alegre MD PCP - General General Internal Medicine 09/01/19 [address] [place] [address] documented as of this encounter
--- OUTSIDE RECORDS SUMMARY | 2021-12-09 01:16 | XMS_ITS | Encounter Summary ---
:1965 Author Organization [facility] [address] Care Team Providers Name Role Phone Claudio Alegre MD Primary Care Provider Encounter Details Date Type Department Care Team Description 02/10/2020 Telephone Vascular Surgery at [facility] [place] [place] [address] Social History Tobacco Use Types Packs/Day Years Used Date Never Assessed Sex Assigned at Date Recorded Not on file documented as of this encounter Miscellaneous Notes Telephone Encounter - Sarah Mcknight - 02/10/2020 11:53 AM EDT LMx1 to schedule appointment from recall documented in this encounter Plan of Treatment Not on filedocumented as of this encounter Visit Diagnoses Not on filedocumented in this encounter Care Teams Svp Research And Strategic Analysis Relationship Specialty Start Date End Date Claudio Alegre MD PCP - General General Internal Medicine 09/01/19 [address] [place] [address] documented as of this encounter
--- OUTSIDE RECORDS SUMMARY | 2021-12-09 01:16 | XMS_ITS | Clinical Summary ---
:1965 Author Organization [facility] [place] [address] Care Team Providers Name Role Phone Carl Mcmahan APRN Primary Care Provider Allergies No known active allergies Medications Medication Sig Dispensed Refills Start Date End Date Status fluticasone 1 spray by Each 0 Ac tive propionate (FLONASE) Nare route daily. 50 mcg/actuation [place], Suspension montelukast Take 10 mg by 0 Acti ve (Singulair) 10 mg mouth daily. Tablet acetaminophen Take 1 tablet by 30 tablet 1 09/01/2019 Active (Tylenol) 500 mg mouth every 4 Tablet hours as needed for Pain (For Mild Pain (1-3) or Fever.). spironolactone TAKE 1 TABLET BY 0 09/22/2020 Active (Aldactone) 25 mg MOUTH DAILY Tablet losartan (COZAAR) 100 TAKE 1 TABLET BY 0 09/22/2020 Active mg Tablet MOUTH ONCE DAILY FOR HYPERTENSION Eliquis 5 mg Tablet TAKE 1 TABLET BY 180 tablet 3 09/29/2021 Active MOUTH TWICE DAILY chlorthalidone Take 25 mg by 0 09/30/2021 Active (Hygroten) 25 mg mouth daily. Tablet amLODIPine (Norvasc) Take 10 mg by 0 09/29/2021 Active 10 mg Tablet mouth daily. metoprolol succinate Take 50 mg by 0 09/29/2021 Active XL (Toprol-XL) 50 mg mouth daily. 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 Pulmonary embolism 08/22/2019 Encounters Date Type Specialty Care Team Description 10/20/2021 TH Visit Vascular Surgery [place], Other acute pulmonary embolism with acute cor pulmonale; (TeleHealth) MD Richar CARBALLO (dyspnea o n exertion) 09/29/2021 Refill Vascular Surgery Richar Hawkins MD from Last 3 Months Immunizations Name Administration Dates Next Due Td, adult 02/10/2005 Social History Tobacco Use Types Packs/Day Years Used Date Never Assessed Sex Assigned at Date Recorded Not on file Last Filed Vital Signs Vital Sign Reading Time Taken Comments Blood Pressure 152/82 09/01/2019 7:43 AM EDT Pulse 58 09/01/2019 7:25 AM EDT Temperature 36.8 ??C (98.2 ??F) 09/01/2019 7:25 AM EDT Respiratory Rate 17 09/01/2019 12:00 PM EDT Oxygen Saturation 94% 09/01/2019 12:00 PM EDT Inhaled Oxygen Concentration - - Weight 178.3 kg (393 lb) 08/31/2019 12:24 AM EDT Height 180.3 cm (5' 11) 08/31/2019 12:24 AM EDT Body Mass Index 54.81 08/31/2019 12:24 AM EDT Plan of Treatment Health Maintenance Due Date Last Done Comments Covid-19 Vaccine (#1) 10/12/1971 HIV screen 1984 Hepatitis C Screening 1984 Tdap adult 1985 Colonoscopy 10/12/2011 Tetanus vaccine 02/10/2015 02/10/2005 Zoster vaccine (1 of 2) 2016 Advance Directive 2021 Influenza (Flu) vaccine (1 of 1 - 12/22/2021 Influenza standard series) Diabetes Screening (HgbA1C or 08/31/2022 09/01/2019, 2019, Glucose) 08/24/2019, Additional history exists Lipid Screening 08/22/2024 08/23/2019 Insurance Payer Benefit Plan / Subscriber ID Effective Dates Phone Addre ss Type Group CIGNA CIGNA OPEN [id number] 2004-Present [phone] [id number] ACCESS PLUS [address] [address] [id number] (Home) [place] [address] Advance Directives Latest Code Status on File Code Status Date Activated Date Inactivated Comments Full Code 08/31/2019 11:19 AM 09/01/2019 4:52 PM Does patient have capacity to make decision: Yes Full Code 08/22/2019 5:30 PM 08/25/2019 9:24 PM Does patient have capacity to make decision: Yes Care Teams Watch Repairer Apprentice Relationship Specialty Start Date End Date Carl Mcmahan, NCA CERTIFIED CONCIERGE PCP - General Family Medicine 09/13/[address] [place] [address]
--- OUTSIDE RECORDS SUMMARY | 2021-12-09 01:16 | XMS_ITS | Encounter Summary ---
:1965 Author Organization [facility] [place] [address] Care Team Providers Name Role Phone Carl Mcmahan APRN Primary Care Provider Encounter Details Date Type Department Care Team Description 10/12/2020 TH Visit Vascular Surgery at [facility], Other ac alivia pulmonary embolism with acute cor pulmonale; (TeleHealth) [facility] MD Richar Essential hypertension [facility] [address] [place] CARD[place]OLOG[place] [address] [place] [address] [phone] Social History Tobacco Use Types Packs/Day Years Used Date Never Assessed Sex Assigned at Date Recorded Not on file documented as of this encounter Progress Notes Richar Hawkins MD - 10/12/2020 9:30 AM EDT CARDIOLOGY/VASCULAR MEDICINE TELE VISIT NOTE Jack Handley 10/10/20 The patient consented to this being a virtual visit. HPI: Jack Handley is a 54 y.o. year old male with a history of KENTRELL, obesity, hypertension who was admitted in August 2019 with submassive (intermediate-high risk) PE. He??presented to [facility] with several day history of shortness of breath and dry cough, found to be hypoxic, and consequent work up with bilateral PE with RV strain. He was placed on BiPAP with improvement in oxygen saturations. He was started on AC with lovenox 1 mg/kg BID. Transferred to [facility] for consideration of advanced therapies - troponin 0.03, proBNP 4300.??COVID-19 negative.??He has remained hemodynamically stable, weaned off BiPAP to NC.??TTE with moderately dilated RV with moderately reduced RV function, PASP 55 mm Hg + RAP.??DVT duplex with left calf DVT. Given improvement with AC alone, there was no need for advanced therapies. Given weight >140 kg, he was started on Coumadin with Lovenox bridging. He did have desaturations with oxygen and thus discharged with home O2. 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 I last talked to tn via telehealth on 04/13/2020. Since then, overall, he has been doing relatively well. Unfortunately he has gained about 20 pounds and is working with his primary care provider to reverse that. He feels that overall, he is not back to what he was prior to his pulmonary embolism, butthis is confounded by the fact that he has gained weight. He is not short of breath with activity, but after a long day, he feels fatigued and needs to sit down. He denies chest pain at rest or with exertion. He does get fatigued with prolonged exertion. He denies lower extremity swelling and is wear compression stockings on a regular basis. He has no PND or orthopnea, palpitations, presyncope or sync ope. He has been working with his primary care provider about his hypertension, and is still not optimally controlled. His INR has been stable. He has had no evidence of bleeding. Brief ROS: Activity level: Independent with ADLs [...] pressure ??? fluticasone propionate (FLONASE) 50 mcg/actuation [place], Suspension 1 spray by Each Nare route daily. ??? montelukast (Singulair) 10 mg Tablet Take 10 mg by mouth daily. Medications were reviewed with patient. Objective Data: VS at home: BP 150/80 Labs: Lab Results Component Value Date WBC [...] deep venous thrombosis (calf vein-posterior tibial vein). ?? Assessment: #1??Unprovoked submassive (intermediate-high risk) PE #2??Unprovoked left calf DVT #3 LLE venous insufficiency #4 Hypertension Mr. 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 We again discussed that given unprovoked nature of his VTE, with ongoing risk factor of obesity, would recommend long-term anticoagulation as well as benefits outweigh the risk. He is at low risk of bleeding. At this point, given that it has been morethan 1 year since his event, I think it is reasonable to switch warfarin to Eliquis 5 mg twice dailyfor long-term anticoagulation. We discussed the way to do this is to stop his warfarin and to start Eliquis in about 5 days. I will send Eliquis to his pharmacy to make sure that it is affordable and if it is, he can then stop warfarin. Discussed the importance of activity and weight loss. His hypertension continues to be suboptimally controlled. I note that he has been working on this with his primary care provider. I see that he is on metoprolol succinate for hypertension. Would recommend switching him to carvedilol instead given that metoprolol does not have much effect on blood pressure. Additionally, his amlodipine can be increased. Finally, he can be initiated on diuretic, such as hydrochlorothiazide or chlorthalidone. Also recommend weight loss and screening for obstructive sleep apnea. Plan 1. Stop warfarin. Start apixaban 5 mg twice daily. 2. Blood pressure recommendations as above for primary care provider. 3. Return to clinic in 1 year, or sooner if necessary. I spent a total of 25 minutes associated with this encounter including chart review, the patient encounter, and documentation, of which more than 50% was with direct patient contact. Richar Hawkins MD, MPH, RPVI, FACC, FS[facility] Cardiovascular Gang Drill OperatorStudent Career Development [place] [address] documented in this encounter Plan of Treatment Not on filedocumented as of this encounter Visit Diagnoses Diagnosis Other acute pulmonary embolism with acut e cor pulmonale Essential hypertension Unspecified essential hypertension documented in this encounter Care Teams Court Reporter Relationship Specialty Start Date End Date Carl Mcmahan, ALGORITHM DESIGN ENGINEER PCP - General Family Medicine 09/13/[address] [place] [address] [address] [place] [address] documented as of this encounter
--- OUTSIDE RECORDS SUMMARY | 2021-12-09 01:16 | XMS_ITS | Encounter Summary ---
:1965 Author Organization [facility] [place] [address] Care Team Providers Name Role Phone Carl Mcmahan APRN Primary Care Provider Reason for Referral Diagnostic Test (Routine) - New Request Specialty Diagnoses / Procedures Referred By Contact Refer red To Contact Cardiology Diagnoses Other acute pulmonary embolism with acute cor pulmonale CARBALLO (dyspnea on exertion) Richar Hawkins MD [facility] Non-Inv Card Lab Procedures Echocardiogram Transthoracic [facility] [place] [address] [place] [address] Fax: Referral ID Status Reason Start Expiration Visits Visits Date Date Requested Authorized [id number] New Request Specialty 10/20/2021 10/20/2022 1 1 Service Requested Reason for Visit Reason Comments Pulmonary Embolism Follow-up Encounter Details Date Type Department Care Team Description 10/20/2021 TH Visit Vascular Surgery at [place], Other napaimute pulmonary embolism with acute cor pulmonale; (TeleHealth) [facility] MD Richar CARBALLO (dyspnea on exertion) [facility] [address] [place] CARDIOLOGY DEPT [id number] [place], [place] [id number] Social History Tobacco Use Types Packs/Day Years Used Date Never Assessed Sex Assigned at Date Recorded Not on file documented as of this encounter Progress Notes Richar Hawkins MD - 10/20/2021 3:00 PM EDT CARDIOLOGY/VASCULAR MEDICINE TELE VISIT NOTE Jack Handley 10/20/21 The patient consented to this being a virtual visit. HPI: Mr. Garcia is a very pleasant 56 year old man with a history of KENTRELL, obesity, hypertension who was admitted in August 2019 with submassive (intermediate-high risk) PE. He??presented to [facility] with several day history of shortness of breath and dry cough, found to be hypoxic, and consequent work up with bilateral PE with RV strain. He was placed on BiPAP with improvement in oxygen saturations. He was started on AC with lovenox 1 mg/kg BID. Transferred to [facility] for consideration of advanced therapies - troponin 0.03, proBNP 4300.??COVID-19 negative.??He has remained hemodynamically stable, weaned off BiPAP to OR.??TTE with moderately dilated RV with moderately reduced [...] line), managed conservatively. I last talked to him via telehealth 10/12/2020. At that time, we switched him from warfarin to apixaban. Since then, he overall has been doing about the same. He feels that he gets tired easily with some shortness of breath, such as with 2 flights of stairs or working in the garden for 30 minutes. He feels that maybe this has gotten a bit worse in the past year. He has been more sedentary lately. His weight has been stable. He has no angina. He denies lower extremity edema and is wear compression regular basis. He has no PND orthopnea, palpitations, presyncope or syncope. He is tolerating anticoagulation without issues. He reports that his blood pressure has been well controlled recently although he does not know exactly what the numbers are. Brief ROS: Activity level: Independent with ADLs No new orthopnea, PND, LE edema. No lightheadedness, dizziness, syncope/pre- syncope. No new CP. Medications: Current Outpatient Medications Medication Sig Dispense Refill ??? Eliquis 5 mg Tablet TAKE 1 TABLET BY MOUTH TWICE DAILY 180 tablet 3 ??? amLODIPine (Norvasc) 5 mg Tablet TAKE 1 TABLET BY MOUTH DAILY ??? metoprolol succinate XL (Toprol-XL) 25 mg Tablet Sustained Release 24 hr Take by mouth. ??? spironolactone (Aldactone) 25 mg Tablet TAKE 1 TABLET BY MOUTH DAILY ??? losartan (COZAAR) 100 mg Tablet TAKE 1 TABLET BY MOUTH ONCE DAILY FOR HYPERTENSION ??? acetaminophen (Tylenol) 500 mg Tablet Take 1 tablet by mouth every 4 hours as needed for Pain (For Mild Pain (1-3) or Fever.). 30 tablet 1 ??? fluticasone propionate (FLONASE) 50 mcg/actuation [place], Suspension 1 spray by Each Nare route daily. ??? montelukast (Singulair) 10 mg Tablet Take 10 mg by mouth daily. Medications were reviewed with patient. Objective Data: VS at home: NA Labs: Lab Results Component Value Date WBC [...] venous thrombosis (calf vein-posterior tibial vein). Assessment: #1??Unprovoked submassive (intermediate-high risk) PE #2??Unprovoked left calf DVT #3 LLE venous insufficiency #4 Hypertension ?? Mr. 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 The biggest issue for him has been shortness of breath, which has not improved over time may have actually worsened. His last echo showed mildly dilated RV with normal function. I do think it is important to recheck his echo to reevaluate his RV as well as pulmonary pressures. We discussed that a minority of individuals, 1 to 2%,, develop chronic thromboembolic pulmonary hypertension which is important to diagnose and treat. 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 We discussed the importance of staying as active as possible in next 1 months to see if we can improve his shortness of breath. This will also help with weight loss. Otherwise, he will continue on Eliquis 5 mg twice daily for unprovoked VTE. Will not dose reduce given his weight. Plan: 1. Continue apixaban 5 mg twice daily, plan for long-term anticoagulation. 2. Walk on a regular basis. 3. Return to clinic in 2 months with echo prior to visit. I spent a total of 20 minutes associated with this encounter including chart review, the patient encounter, and documentation, of which more than 50% was with direct patient contact. Richar Hawkins MD, MPH, VI, [facility], [facility] Cardiovascular Garden LabourerCareer Guidance Techn[place] [address] documented in this encounter Plan of Treatment Scheduled Orders Name Type Priority Associated Order Schedule Diagnoses Echocardiogram Echocardiography Routine Other acute Expected: Transthoracic pulmonary embolism 12/21/19 22, with acute cor Expires: pulmonale 06/21/2022 CARBALLO (dyspnea on exertion) documented as of this encounter Visit Diagnoses Diagnosis Other acute pulmonary embolism with acut e cor pulmonale CARBALLO (dyspnea on exertion) Other dyspnea and respiratory abnormalit y documented in this encounter Care Teams Graphics Editor Relationship Specialty Start Date End Date Carl Mcmahan, HOBBER PCP - General Family Medicine 09/13/20 [address] [place] [address] documented as of this encounter
--- OUTSIDE RECORDS SUMMARY | 2021-12-09 01:16 | XMS_ITS | Encounter Summary ---
:1965 Author Organization [facility] [place] [address] Care Team Providers Name Role Phone Claudio Alegre MD Primary Care Provider Encounter Details Date Type Department Care Team Description 09/11/2019 Tech Visit Vascular Lab at [place] [address] Social History Tobacco Use Types Packs/Day Years Used Date Never Assessed Sex Assigned at Date Recorded Not on file documented as of this encounter Plan of Treatment Not on filedocumented as of this encounter Procedures Procedure Name Priority Date/Time Associated Diagnosis Comme nts ARTERIAL DUPLEX Routine 09/11/2019 8:40 AM Radial artery Resul ts for this ARM, UNILAT EDT aneurysm, right procedure ar e in the results section. documented in this encounter Results Arterial Duplex Arm, Unilat (09/11/2019 8:40 AM EDT) Component Value Ref Test Analysis Performed At [facility] Range Method Time Signature VB Text Department: Vascular Surgery Lab [facility] Report Patient: [id number] (ESTEBAN ALEXANDER) CPT: 33601 ICD10: I72.1 Referring Physician: ERIN GROSSMAN ?? Phone: Indications: s/p R PSA following radial art line placement, ? patency, ? flow in PSA ICD10 Diagnosis Code: I72.1 Findings: Right ?PSV (cm/s) ??EDV (cm/s) ? ? Brachial Artery, Distal ? 132 ?16 ?? Radial Artery, Proximal ?90 ?13 ?? Radial Artery, ??Mid ?94 ?12 ?? Radial Artery, Distal ?96 ? 6 ? ? Ulnar Artery, Proximal ?127 ?14 ?? Interpretation: RIGHT: Widely patent distal brachial artery, pro ximal ulnar artery and radial artery (from origin to wrist) with normal, triphasic Doppler waveforms. There is a thrombosed radial artery pseu doaneurysm measuring approximately 3.4 X 3.1 cm compared to 3.6 X 3.8 cm on the previou s exam. A short neck from the proximal radial artery was identified with reduc ed arterial flow. However, no arterial flow is identified within the thrombosed pseudoaneu rysm. Comparison: Slight decrease in approximate transverse cross sectional di ameter of thrombosed pseudoaneurysm when compared to the previous exam on 09/01/2019. Electronically Signed by: JU BARAHONA MD on 2019-09-11 10: 45:53 AM VB Text End of Report [facility] Report Specimen (Source) Anatomical Collection Method Collection Time Re ceived Time Location / / Volume Laterality 09/11/2019 8:40 AM EDT Erin Grossman MD VASCULAR ORDERABLES Performing Organization Address City/State/ZIP Code Phon e Number [facility] documented in this encounter Visit Diagnoses Diagnosis Radial artery aneurysm, right Aneurysm of other specified artery documented in this encounter Care Teams Zigzag Tunnel Elastic Operator Relationship Specialty Start Date End Date Claudio Alegre MD PCP - General General Internal Medicine 09/01/[address] [place] [address] documented as of this encounter
--- OUTSIDE RECORDS SUMMARY | 2021-12-09 01:16 | XMS_ITS | Encounter Summary ---
:1965 [place] [address] Care Team Providers Name Role Phone Claudio Alegre MD Primary Care Provider Encounter Details Date Type Department Care Team Description 09/24/2019 Tele[place] [address] Social History Tobacco Use Types Packs/Day Years Used Date Never Assessed Sex Assigned at Date Recorded Not on file documented as of this encounter Miscellaneous Notes Telephone Encounter - Grace Aguila - 09/24/2019 8:05 AM EDT Images from the original note were not included. Richar Hawkins MD P [facility] Vascular Surgery [place] ?? Hi, I should see him back in ~5 months. No studies. Thanks! -Mirza Recall from Dr. Hawkins documented in this encounter Plan of Treatment Not on filedocumented as of this encounter Visit Diagnoses Not on filedocumented in this encounter Care Teams Rn Provider Relations Relationship Specialty Start Date End Date Claudio Alegre MD PCP - General General Internal Medicine 09/01/19 [address] [place] [address] documented as of this encounter
--- OUTSIDE RECORDS SUMMARY | 2021-12-09 01:16 | XMS_ITS | Encounter Summary ---
:1965 Author Organization [facility] [place] [address] Care Team Providers Name Role Phone Carl Mcmahan APRN Primary Care Provider Reason for Visit Reason Comments Medication Refill Encounter Details Date Type Department Care Team Description 09/29/2021 Refill [facility] [place] [facility] Richar Hawkins MD [facility] [place] [address] CARDIOLOGY DEPT [phone] [place] [phone] (Wo rk) Social History Tobacco Use Types Packs/Day Years Used Date Never Assessed Sex Assigned at Date Recorded Not on file documented as of this encounter Plan of Treatment Not on filedocumented as of this encounter Visit Diagnoses Not on filedocumented in this encounter Care Teams Operations Agent Relationship Specialty Start Date End Date Carl Mcmahan APRN PCP - General Family Medicine 09/13/[address] [place] [address] documented as of this encounter
--- OUTSIDE RECORDS SUMMARY | 2021-12-09 01:16 | XMS_ITS | Encounter Summary ---
:1965 Author Organization [facility] [place] [address] Care Team Providers Name Role Phone Claudio Alegre MD Primary Care Provider Encounter Details Date Type Department Care Team Description 01/09/2020 Telephone Vascular Surgery at [facility] [place] [address] Social History Tobacco Use Types Packs/Day Years Used Date Never Assessed Sex Assigned at Date Recorded Not on file documented as of this encounter Miscellaneous Notes Telephone Encounter - Ryann Ye RN - 01/09/2020 3:18 PM EDT Pt called to inquire on his request to have his RX for oxygen d/c'd through [facility]. Review ofchart shows that Pt was discharged in August of 2019. Vascular RN called PCP and left msg with PCP's nurse asking if there was a reason that Pt would remain on O2 as he was d/c'd back in August of 2019 and we did not continue with this RX. Vascular RN asking PCP nurse to call [facility] and cancel RX if they are the ones prescribing; otherwise, call us and we will cancel the RX. Pt uses [facility] in [place], [place] and they will need to be notified if PCP will not cancel. documented in this encounter Plan of Treatment Not on filedocumented as of this encounter Visit Diagnoses Not on filedocumented in this encounter Care Teams Suture Polisher Relationship Specialty Start Date End Date Claudio Alegre MD PCP - General General Internal Medicine 09/01/19 [address] [place] [address] documented as of this encounter
--- OUTSIDE RECORDS SUMMARY | 2021-12-09 01:16 | XMS_ITS | Encounter Summary ---
:1965 [place] [address] Care Team Providers Name Role Phone Claudio Alegre MD Primary Care Provider Encounter Details Date Type Department Care Team Description 09/01/2019 Notes Only Vascular [facility] [place] [facility] Rula Liu, LACHELLE [facility] [place] [facility] [place] [address] VASCULAR SURGERY [phone] [place] [phone] (Wo rk) Social History Tobacco Use Types Packs/Day Years Used Date Never Assessed Sex Assigned at Date Recorded Not on file documented as of this encounter Progress Notes Rula Liu, RN - 09/01/2019 1:30 PM EDT I spoke with Jack's PCP office who will monitor coumadin/lovenox and INR. Pt will have first draw Th 09/04/2019 and continue Mon/Thurs schedule until advised to change by PCP. documented in this encounter Plan of Treatment Not on filedocumented as of this encounter Visit Diagnoses Not on filedocumented in this encounter Care Teams Multiple Cut Off Saw Operator Relationship Specialty Start Date End Date Claudio Alegre MD PCP - General General Internal Medicine 09/01/19 [address] [place] [address] documented as of this encounter
--- OUTSIDE RECORDS SUMMARY | 2021-12-09 01:16 | XMS_ITS | Encounter Summary ---
:1965 Author Organization [facility] [place] [address] Care Team Providers Name Role Phone Claudio Alegre MD Primary Care Provider Reason for Visit Consultation (Routine) - Closed Specialty Diagnoses / Procedures Referred By Contact Refer red To Contact Cardiology Diagnoses Other acute pulmonary embolism without acute cor pulmonale Post hospital follow up for PE Epifanio Hassan MD Henkin, Stanislav, MD [facility] GENER[facility] INTERNAL [place]ARDIOLOGY [place] [address] [place] [address] Referral ID Status Reason Start Date Expiration Date Visits V isits Requested Authorized [id number] Closed Consult, 08/25/2019 08/24/2020 1 1 Test & Treat Encounter Details Date Type Department Care Team Description 09/23/2019 TH Visit Vascular Surgery at [facility], [place] i nsufficiency of left leg; (TeleHealth) [facility] [place] Richar Edema of left lower extremity due to per ipheral venous insufficiency; [facility] acu te pulmonary embolism with acute cor pulmonale [facility] [address] [place] CARDIOLOGY DEPT [id number] [place] [address] Social History Tobacco Use Types Packs/Day Years Used Date Never Assessed Sex Assigned at Date Recorded Not on file documented as of this encounter Progress Notes Richar Hawkins MD - 09/23/2019 2:00 PM EDT CARDIOLOGY/VASCULAR MEDICINE TELE VISIT NOTE Jack Handley 09/23/19 The patient consented to this being a virtual visit. HPI: Jack Handley is a 53 y.o. year old male with a history of KENTRELL, obesity, hypertension who was admitted in August 2019 with submassive (intermediate-high risk) PE. He presented to [facility] with several day history of shortness of breath and dry cough, found to be hypoxic, and consequent work up with bilateral PE with RV strain. He was placed on BiPAP with improvement in oxygen saturations. He was started on AC with lovenox 1 mg/kg BID. Transferred to [facility] for consideration of advanced therapies - troponin 0.03, proBNP 4300.??COVID-19 negative. He has remained hemodynamically stable, weaned off BiPAP to [place]. TTE with moderately dilated RV with moderately reduced RV function, PASP 55 mm Hg + RAP. DVT duplex with left calf DVT. Given improvement with AC alone, there was no need for advanced therapies. Given weight >140 kg, he was started on Coumadin with Lovenox bridging. He did have desaturations with oxygen and thus discharged with home O2. 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 He presents for follow-up. Has continued to improve since discharge. He continues to use oxygen at night with CPAP, as well as at times when climbing stairs. Not using oxygen if walking on level surface. He has no chest pain. Does have some CARBALLO, improving. Has LLE swelling. He has had labile INRs and still working on stable Coumadin dose. Tolerating Coumadin without any bleeding. Not measuring BPs athome but when he has gone to physician office, it has been in 140s systolics. He has no PND or orthopnea, palpitations, pre-syncope or syncope. Had TTE on 09/10 - RV mildly dilated with normal function,PASP 35 mm Hg. In terms of VTE risk factors, no provoking risk factors prior to diagnosis. He is obese. No prior personal or family history of VTE. He had a normal colonoscopy in the past couple of years. No urinary symptoms. He does not have kids. Brief ROS: Activity level: Independent with ADLs. No new orthopnea, PND. No lightheadedness, dizziness, syncope/pre-syncope. No new CP. Medications: Current Outpatient Medications [...] ??? fluticasone propionate (FLONASE) 50 mcg/actuation [place], Suspension 1 spray by Each Nare route daily. ??? montelukast (Singulair) 10 mg Tablet Take 10 mg by mouth daily. Medications were reviewed with patient. Objective Data: VS at home: Not measuring Labs: Lab Results Component Value Date WBC [...] estimated pulmonary artery systolic pressure has decreased. TTE 08/23/2019: 1. Technically limited study. 2. The left ventricular chamber size is normal. Mild concentric left ventricular hypertrophy is observed. Global left ventricular wall motion and contractility are probably within normal limits. There is normal global left ventricular systolic function. The quantitative left ventricular ejection fraction by [...] The left atrium is normal in size. The right atrium is mildly dilated. 5. There is no hemodynamically significant valve disease. 6. See remainder of report for additional findings. DVT duplex 08/25/2019: Interpretation: RIGHT: ??No evidence of lower extremity deep venous thrombosis. LEFT: Acute non-occlusive lower extremity deep venous thrombosis (calf vein-posterior tibial vein). Assessment: #1 Unprovoked submassive (intermediate-high risk) PE #2 Unprovoked left calf DVT #3 LLE venous insufficiency #4 Hypertension Mr. Handley is a very pleasant 53 year old man with history of obesity, hypertension who presents for follow-up of unprovoked VTE. We discussed difference between provoked and unprovoked VTE and the fact that there's high risk of recurrence off anticoagulation with unprovoked VTE. Thus, would consider long-term anticoagulation as long as benefits outweigh the risks. Given his weight, I do believe that Coumadin is the best initial choice given limited data for use of DOAC in individuals >140 kgs.We discussed that for secondary prevention, DOAC (such as apixaban 5 mg BID) would be reasonable - can switch to this in August 2020. We also discussed role of thrombophilia testing - given no family history and he has no kids, I think thrombophilia testing is of limited utility as it will not change ourmanagement; he agrees. Also discussed that he should continue to be as active as possible, increase his exercise regimen and wean oxygen. He does have symptoms c/w LLE venous insufficiency. I will send him prescription for compression stockings. His HTN is suboptimally controlled - this should be closely followed by his PCP. Losartan can be up-titrated. Plan 1. Continue Coumadin, INR goal 2.5 (range 2.0-3.0) - plan for 12 months and then consider switching to apixaban. 2. Compression for venous insufficiency. 3. Return to clinic in 5 months, or sooner if necessary. I spent a total of 40 minutes associated with this encounter including chart review, the patient encounter, and documentation, of which more than 50% was with direct patient contact. Richar Hawkins MD, MPH, [facility] Cardiovascular TypistAdvanced Practice Psychiatric [place] [address] documented in this encounter Plan of Treatment Not on filedocumented as of this encounter Visit Diagnoses Diagnosis Venous insufficiency of left leg Edema of left lower extremity due to per ipheral venous insufficiency Other acute pulmonary embolism with acut e cor pulmonale documented in this encounter Care Teams Scuba Dive Training Instructor Relationship Specialty Start Date End Date Claudio Alegre MD PCP - General General Internal Medicine 09/01/19 [address] [place] [address] documented as of this encounter
--- OUTSIDE RECORDS SUMMARY | 2021-12-09 01:16 | XMS_ITS | Encounter Summary ---
:1965 Author Organization [place] [address] Care Team Providers Name Role Phone Claudio Alegre MD Primary Care Provider Encounter Details Date Type Department Care Team Description 09/05/2019 Orders Only General Surgery at [facility] Tricia Sandoval MD [facility] [place] [address] VASCULAR SURGERY [phone] [place] [phone] (Wo rk) Social History Tobacco Use Types Packs/Day Years Used Date Never Assessed Sex Assigned at Date Recorded Not on file documented as of this encounter Plan of Treatment Not on filedocumented as of this encounter Visit Diagnoses Not on filedocumented in this encounter Care Teams Alternative Energy Engineer Relationship Specialty Start Date End Date Claudio Alegre MD PCP - General General Internal Medicine 09/01/19 [address] [place] [address] documented as of this encounter
--- OUTSIDE RECORDS SUMMARY | 2021-12-09 01:17 | XMS_ITS | Encounter Summary ---
:1965 Author Organization [facility] [place] [address] Care Team Providers Name Role Phone Becky Castillo MD Primary Care Provider Encounter Details Date Type Department Care Team Description 08/22/2019 Telephone [place] [facility] [place] [facility] [place] [address] [address] CARDIOLOGY DEPT [phone] [place], [place] [address] (Wo rk) Social History Tobacco Use Types Packs/Day Years Used Date Never Assessed Sex Assigned at Date Recorded Not on file documented as of this encounter Miscellaneous Notes Telephone Encounter - Rupesh Ken MD - 08/22/2019 2:56 PM EDT Telephone Triage Note Initial Contact Date: 08/22/2019 Initial contact time: 1500 Referring Provider: Danielito Patient Location: [facility] Presenting Symptoms per OSH: 53 y/o obese, HTN presenting with SOB starting yesterday. O2 sat 70s. Started on BiPAP with improvement to 90s. No chest pain. Complaining of dry cough. Past Medical History: HTN Pertinent Diagnostic Findings: Vitals: BP 117/64 HR 86 SaO2 BiPAP 96% EKG : TWI V1-V4 Troponin : 0.23->0.33 CXR: WBC 19K CTPE: Bilateral PE, questionable PE infarct BNP 3550 OSH Interventions: Lovenox 1mg/kg Assessment/Plan: 53 y/o presenting with submassive PE with evidence of RV strain on CT and ECG. On BiPAP. COVID r/o. Transfer for further management. - Above recommendations are based on information received over the phone; I have not personally interviewed or examined this patient. Rupesh Ken MD Blacksmith Assistant PGY 5 P: [id number] documented in this encounter Plan of Treatment Not on filedocumented as of this encounter Visit Diagnoses Not on filedocumented in this encounter Care Teams Russet Repairer Relationship Specialty Start Date End Date Becky Castillo MD PCP - General 03/15/10 08/31/19 [address] [place] [address] documented as of this encounter
--- OUTSIDE RECORDS SUMMARY | 2021-12-09 01:17 | XMS_ITS | Encounter Summary ---
:1965 Author Organization [facility] [place] [address] Care Team Providers Name Role Phone Becky Castillo MD Primary Care Provider Encounter Details Date Type Department Care Team Description 08/22/2019 External [place] [address] Social History Tobacco Use Types Packs/Day Years Used Date Never Assessed Sex Assigned at Date Recorded Not on file documented as of this encounter Plan of Treatment Not on filedocumented as of this encounter Procedures Procedure Name Priority Date/Time Associated Diagnosis Comme nts ECG SCAN Routine 08/22/2019 Results for thi s procedure are in the resu lts section. documented in this encounter Results Scan Doc: ECG (08/22/2019) Narrative This result has an attachment that is no t available. Historical Provider MD RIVAS MGR SCAN EXT ORDR/RSLT documented in this encounter Visit Diagnoses Not on filedocumented in this encounter Additional Health Concerns Infection Onset Date Last Indicated Resolved Time Rule Out COVID-19 08/22/2019 08/22/2019 08/22/2019 9:0 1 PM EDT documented as of this encounter Care Teams Inspector Set Up And Lay Out Relationship Specialty Start Date End Date Becky Castillo MD PCP - General 03/15/10 08/31/19 [address] [place] [address] documented as of this encounter
--- OUTSIDE RECORDS SUMMARY | 2021-12-09 01:17 | XMS_ITS | Encounter Summary ---
:1965 [place] [address] Care Team Providers Name Role Phone Becky Castillo MD Primary Care Provider Encounter Details Date Type Department Care Team Description 08/22/2019 Ancillary Procedure Radiology Library at Jack Valdes MD [facility] [place] [address] [place] [address] [phone] (Wo rk) Social History Tobacco Use Types Packs/Day Years Used Date Never Assessed Sex Assigned at Date Recorded Not on file documented as of this encounter Plan of Treatment Not on filedocumented as of this encounter Procedures Procedure Name Priority Date/Time Associated Diagnosis Comme nts FILM LIBRARY Routine 08/22/2019 3:01 PM Results f or this STORAGE ONLY CT EDT procedure ar e in CHEST the results section. documented in this encounter Results Film Library- Storage Only CT Chest (08/22/2019 3:01 PM EDT) Specimen (Source) Anatomical Location Collection Method / Collectio n Time Received Time / Laterality Volume Narrative RAD - 08/22/2019 3:01 PM EDT This exam is auto-finalizing. It's purpo se is for storage only. Jack Valdes MD IMG FILM LIBRARY ORDERABLES Performing Organization Address City/State/ZIP Code Phon e Number RAD [place], [place] documented in this encounter Visit Diagnoses Not on filedocumented in this encounter Care Teams Blockman Relationship Specialty Start Date End Date Becky Castillo MD PCP - General 03/15/10 08/31/19 [address] [place] [address] documented as of this encounter
--- OUTSIDE RECORDS SUMMARY | 2021-12-09 01:17 | XMS_ITS | Encounter Summary ---
:1965 [place] [address] Care Team Providers Name Role Phone Claudio Alegre MD Primary Care Provider Reason for Visit Reason Comments Arm Pain Auth/Cert Specialty Diagnoses / Procedures Referred By Contact Refer red To Contact Diagnoses Pseudoaneurysm Radial artery aneurysm, right Other acute pulmonary embolism without acute cor pulmonale radial artery aneurysm Procedures EMERGENCY IPI Referral ID Status Reason Start Date Expiration Date Visits Requ ested Visits Authorized [id number] 1 1 Encounter Details Date Type Department Care Team Description 08/31/2019 - Hospital Encounter 4 Grulla Jh Henley MD [facility] [place] [address] Pseudoaneurysm; 09/01/2019 [facility] Becky Meehan MD [facility] [place] [address] Radial artery aneurysm, right; [facility] [place] [address] Other acute pulmonary embolism without [place] [id number] Social History Tobacco Use Types Packs/Day Years Used Date Never Assessed Sex Assigned at Date Recorded Not on file documented as of this encounter Last Filed Vital Signs Vital Sign Reading [...] Mass Index 54.81 08/31/2019 12:24 AM EDT documented in this encounter Discharge Summaries Cherelle Barcenas APRN - 09/01/2019 1:09 PM EDT Inpatient - Discharge Summary Patient Name: Esteban Handley Patient Age: 53 y.o. Birthdate: 1965 Admit date: 08/31/2019 Discharge date and time: 09/01/2019 Attending Physician: Ping Grossman MD Discharging Provider: Cherelle Barcenas APRN Discharging Service: Vascular Surgery Operations/Major Procedures: none this admission Active Hospital Problems: Active Hospital Problems Diagnosis ??? Radial artery aneurysm, right Resolved Hospital Problems No resolved problems to display. Active Non Hospital Problems: Active Non-Hospital Problems Diagnosis ??? Pulmonary embolism History of Presentation: 53-year-old male who was recently diagnosed with PE, currently on Coumadin and Lovenox bridging. During his admission here he had a right-sided radial arterial line placed. Wasdischarged home last Sunday on the aforementioned anticoagulation. As the week went on he noticed progressing ecchymosis of his forearm as well as slow swelling. Discussed this with his PCP who said that that was normal but once it started to cause more pressure control even more he became concerned and went to [facility] for a CTA was performed showing intramuscular hematoma as well as 2 pseudoaneurysms of the radial artery. Vascular surgery was consulted and it was recommended that pressure be held sal repeat imaging be performed in the morning. Provider said they felt uncomfortable with this and therefore sent the patient here for further treatment. This was done after holding pressure for approximately 40 minutes. Of note, INR was 1.4 and Hgb 13.3 at OSH. On arrival the patient says he has some m ild numbness, that he mostly relates to the dressing that was applied to the arm. Denies any shortness of breath, chest pain, nausea vomiting, abdominal pain or other numbness or tingling. No dizzinessor lightheadedness or headaches. Hospital Course: Pt admitted to the vascular surgery service. Duplex obtained and repeated, resultedbelow. Pt was maintained on lovenox/coumadin bridge that will continue on outpatient basis for DVT/PE. Pt's home dose atenolol/chlorthalidone resumed this admission with approval of Dr. Hawkins. Pt's right arm remained wrapped daily for swelling reduction with good effect. Pt otherwise remains at independent baseline level of function; good PO intake, adequate output and minimal pain. Pt requires intermittent O2 either via CPAP at night or NC at day, has home O2 setup. Pt will follow-up with ECHO/Duplex and telehealth appts as listed below. Most Recent Vitals: 09/01/19 1200 BP: Pulse: Resp: 17 Temp: SpO2: 94% General: NAD, resting comfortably. HEENT: PERRL, anicteric sclerae. CVS: Regular. Pulm: Normal work of breathing on room air. GI: Abdomen soft, non tender, non distended. MS: RUE: Ecchymosis of interior forearm. Notably swollen compared to left. Tension overlying hematoma but compartments soft. Strength comparable between sides. Sensation intact. ADVANCED RESEARCH PROGRAMS DIRECTOR <2 seconds RLE: WWP, No edema. No tissue loss. Brisk capillary refill. LLE: WWP, No edema. No tissue loss. Brisk capillary refill. Neuro: Grossly nonfocal, moving all extremities Important Studies and Lab Data: Labs: [facility] Lab Results Component Value Date INR 1.5 09/01/2019 PT 17.8 (H) 09/01/2019 08/31/2019 Arterial Duplex Interpretation: ?? RIGHT: Widely patent distal brachial artery, proximal ulnar artery, and radial artery (from origin to wrist) with normal, triphasic Doppler waveforms throughout. There is a hematoma, likely resolved pseudoaneurysm just distal to the A/C fossa measuring approximately 4.0 cm X 3.8 cm. A short??neck from the proximal radial artery was identified measuring approximately 1.8 mm wide with reduced, resistive arterial flow. No arterial flow identified within the resolved pseudoaneurysm. Comparison: ??No previous study in our vascular lab database for comparison. 09/01/2019 Arterial Duplex Interpretation: RIGHT: Widely patent proximal radial artery with normal, triphasic Doppler waveforms. There is a thrombosed radial artery pseudoaneurysm measuring approximately 3.6 cm X 3.8 cm which is unchanged compared to previous exam. No arterial flow identified within the resolved pseudoaneurysm. No identifiable change when compared to the previous exam done 08/31/2019. Discharge Condition: Good Discharge to: Home Future Appointments and Orders Future Appointments and Orders Future Appointments Provider Department Dept Phone 09/11/2019 7:30 AM ECHO REGULAR Non-Invasive Cardiology Lab [facility] Arrive at: Medical Clinic Manager Area 4A [phone] 09/11/2019 8:30 AM [place] [facility] [place] at[place] Medical Clinic Manager Area 3V [phone] 09/16/2019 3:00 PM Richar Hawkins [place] [facility] [place] [phone] Please click here to view instructions for your upcoming Telehealth appointment 09/19/2019 9:30 AM Ping Grossman [place] [facility] [place] [phone] Please click here to view instructions for your upcoming Telehealth appointment Future Orders Complete By Nya Arterial Duplex Dell Beyer [[email or web address] Custom] 09/15/2019 03/03/2020 Process Instructions: There is no in-house vascular earth science laboratory technician available on weeknights (5pm-8am), weekends, or holidays. IF THIS IS A REQUEST FOR AN EMERGENT STUDY DURING THOSE HOURS, please have the senior provider responsible for the patient page the Vascular Surgery Fellow/Senior Resident marketing liaison to discuss options. Scheduling Instructions: Questions: Laterality: Right Upper limb segments?: Radial Ulnar Artery Brachial Indication for study/signs & symptoms: s/p R PSA following radial art line placement Question to be answered: patency, r/o flow into PSA [place] [facility] [place]ticoagulation & Antiplatelet: Anticoagulation: Agent: Lovenox bridge to therapeutic Coumadin Indication: DVT/PE Intended Duration: Indefinitely at this time Antiplatelet: None indicated For questions regarding these medications, please contact: PCP Discharge Medications: Your Medications New Medications Dose Details acetaminophen 500 mg Tab Commonly known as: Tylenol Take 1 tablet by mouth every 4 hours as needed for Pain (For Mild Pain (1-3) or Fever.). 500 mg Quantity: 30 tablet Refills: 1 Continued medications with new dosing Dose Details enoxaparin 100 mg/mL Syrg Commonly known as: LOVENOX Inject 1.8 mLs subcutaneously 2 times daily. What changed: Another medication with the same name was removed. Continue taking this medication, and follow the directions you see here. 1 mg/kg/dose Quantity: 30 Syringe Refills: 1 warfarin 5 mg Tab Commonly known as: Coumadin Take 1 tablet by mouth daily. What changed: additional instructions 5 mg Quantity: 90 tablet Refills: 3 Continued medications, unchanged Dose Details atenoloL-chlorthalidone 100-25 mg Tab Commonly known as: TENORETIC TAKE 1 TABLET BY MOUTH AT BEDTIME Refills: 0 fluticasone propionate 50 mcg/actuation Spsn Commonly known as: FLONASE 1 spray by Each Nare route daily. 1 spray Refills: 0 losartan 25 mg Tab Commonly known as: Cozaar Take 50 mg by mouth every evening. Indications: high blood pressure 50 mg Refills: 0 montelukast 10 mg Tab Commonly known as: Singulair Take 10 mg by mouth daily. 10 mg Refills: 0 Updated Allergies/ADRs: No Known Allergies Follow-up Recommendations for Providers: For PCP: Pt is on a lovenox bridge to therapeutic coumadin with goal INR 2-3 for DVT/PE. Lovenox can be d/c'd when INR>2, coumadin should continue indefinitely. Please dose coumadin to achieve/maintain goal INR. Instructions Given to Patient at Discharge: Patient Instructions Patient Instructions You were admitted on 08/31/2019 for management of your right arm pseudoaneurysm. All of this went very well. Dr. Grossman will want you to be seen in approximately 2 weeks with an ultrasound of your wrist. All of this is scheduled and listed below. Anticoagulation: on lovenox bridge to therapeutic coumadin for DVT/PE. Goal INR 2-3. At discharge INR=1.5. Your PCP office is going to follow for INR checks and coumadin dosing. We will call you with coordination details for this. If you do not hear from us by , 09/03/2019, please call the number below. Call your doctor if: Any fever, any drainage, redness or separation of your incision, increased painor change in temperature of your arm Activity level: up as tolerated. Lifting restriction: do not lift >15# with your right arm until you are cleared to do so by Dr. Grossman. Diet: resume your previous regular diet Driving: none right now with pain medication use Shower/Bath: ok to shower and wash all incisions under running water, pat dry. No soaking in a pool/bath/hottub for 2-4 weeks Wound Care: Dry gauze/tape dressing as needed for drainage. If incision is clean & dry, it can remain open to air without a dressing. For any problems or questions please call [phone] For issues on weeknights after 5pm and weekends please call [phone] and ask for the Vascular Fellow marketing liaison. documented in this encounter Discharge Instructions Patient InstructionsRula Liu RN - 09/01/2019 9:13 AM EDT Patient Instructions You were admitted on 08/31/2019 for management of your right arm pseudoaneurysm. All of this went very well. Dr. Grossman will want you to be seen in approximately 2 weeks with an ultrasound of your wrist. All of this is scheduled and listed below. Anticoagulation: on lovenox bridge to therapeutic coumadin for DVT/PE. Goal INR 2-3. At discharge INR=1.5. Your PCP office is going to follow for INR checks and coumadin dosing. We will call you with coordination details for this. If you do not hear from us by , 09/03/2019, please call the number below. Call your doctor if: Any fever, any drainage, redness or separation of your incision, increased painor change in temperature of your arm Activity level: up as tolerated. Lifting restriction: do not lift >15# with your right arm until you are cleared to do so by Dr. Grossman. Diet: resume your previous regular diet Driving: none right now with pain medication use Shower/Bath: ok to shower and wash all incisions under running water, pat dry. No soaking in a pool/bath/hottub for 2-4 weeks Wound Care: Dry gauze/tape dressing as needed for drainage. If incision is clean & dry, it can remain open to air without a dressing. For any problems or questions please call [phone] For issues on weeknights after 5pm and weekends please call [phone] and ask for the Vascular Fellow marketing liaison. documented in this encounter Medications at Time of Discharge Medication Sig Dispensed Refills Start Date End Date acetaminophen Take 1 tablet by mouth 30 tablet 1 09/01/2019 (Tylenol) 500 mg every 4 hours as Tablet needed for Pain (For Mild Pain (1-3) or Fever.). fluticasone propionate 1 spray by Each Nare 0 (FLONASE) 50 route daily. mcg/actuation Clubb, Suspension montelukast Take 10 mg by mouth 0 (Singulair) 10 mg daily. Tablet enoxaparin (LOVENOX) Inject 1.8 mLs 30 Syringe [...] blood pressure documented as of this encounter Progress Notes Aditi Marrufo RN - 09/01/2019 2:41 PM EDT Esteban has +CSM to RUE. Wrapped in alicia wrap, 2+swelling +tingling. Warm to touch. Elevating as tolerated. All other pulses weakly palpable. VSS on RA, using CPAP at noc. Voiding adequate amounts in urinal. Ultrasound RUE this AM. Discharge instructions provided, questions answered. AVS given to patient. PIV removed. Assisted via w/c to north entrance to meet friend at personal car. Stacy Urrutia RN - 08/31/2019 1:03 PM EDT Pt arrived from ED. AOx4, VSS. R arm alicia wrap CDI - CSM in R hand intact. Pt reporting pain 06/30, denies nausea, SOB. Ambulating independently in room. Oriented to room, call juarez. Will continue to monitor. documented in this encounter H&P Notes Sai Perla MD - 08/31/2019 9:47 AM EDT Patient Name: Esteban Handley Patient Age: 53 y.o. Birthdate: 1965 Admit date: 08/31/2019 Attending Physician: Ping Grossman MD Vascular Surgery Inpatient Consultation Date of Consultation: 09/01/2019 Consult Service: Vascular Surgery Place of Service: (X) Emergency Department ( ) Inpatient Unit ( ) Critical care Responsible Attending: Dr. Grossman Reason for Consult: We are seeing Esteban Handley at the request of Dr. Ping Grossman MD in consultation for R Radial pseudoaneurysms. I have reviewed the available records, interviewed and examined the patient. History of Present Illness: Esteban Handley is a 53-year-old male who was recently diagnosed with PE, currently on Coumadin and Lovenox bridging. During his admission here he had a right-sided radial arterial line placed. Was discharged home last Sunday on the aforementioned anticoagulation. As the week went on he noticed progressing ecchymosis of his forearm as well as slow swelling. Discussed this with his PCP who said that that was normal but once it started to cause more pressure control even more he became concerned and went to [facility] for a CTA was performed showing intramuscular hematoma as well as 2 pseudoaneurysms of the radial artery. Vascular surgery was consulted and it was recommended that pressure be held and a repeat imaging be performed in the morning. Provider said they felt uncomfortable with this and therefore sent the patient here for further treatment. This was done after holding pressure for approximately 40 minutes. Of note, INR was 1.4 and Hgb 13.3 at OSH. On arrival the patient says he has some mild numbness, that he mostly relates to the dressing that was applied to the arm. Denies any shortness ofbreath, chest pain, nausea vomiting, abdominal pain or other numbness or tingling. No dizziness or lightheadedness or headaches. Review of Systems: 10 point review of systems negative except as noted above. Past Medical History: PE Past Surgical History: History reviewed. No pertinent surgical history. Social History: Social History Socioeconomic History ??? Marital status: Single Spouse name: None ??? Number of children: None ??? Years of education: None ??? Highest education level: None Occupational History ??? None Social Needs ??? Financial resource strain: None ??? Food insecurity Worry: None Inability: None ??? Transportation needs Medical: None Non-medical: None Tobacco Use ??? Smoking status: None Substance and Sexual Activity ??? Alcohol use: None ??? Drug use: None ??? Sexual activity: None Lifestyle ??? Physical activity Days per week: None Minutes per session: None ??? Stress: None Relationships ??? Social connections Talks on phone: None Gets together: None Attends moravian service: None Active member of club or organization: None Attends meetings of clubs or organizations: None Relationship status: None ??? Intimate partner violence Fear of current or ex partner: None Emotionally abused: None Physically abused: None Forced sexual activity: None Other Topics Concern ??? None Social History Narrative ??? None Family History History reviewed. No pertinent family history. Home Medications: No current facility-administered medications on file prior to encounter. Current Outpatient Medications on File Prior to Encounter Medication Sig Dispense Refill ??? atenoloL-chlorthalidone (TENORETIC) 100-25 mg Tablet TAKE 1 TABLET BY MOUTH AT BEDTIME ??? enoxaparin (LOVENOX) 100 mg/mL Syringe Inject 1.8 mLs subcutaneously 2 times daily. 30 Syringe 0 ??? losartan (Cozaar) 25 mg Tablet Take 50 mg by mouth every evening. Indications: high blood pressure ??? fluticasone propionate (FLONASE) 50 mcg/actuation Clubb, Suspension 1 spray by Each Nare route daily. ??? enoxaparin (LOVENOX) 100 mg/mL Syringe Inject 1.8 mLs subcutaneously every 12 hours. From mygola cabinet 14 Syringe 0 ??? warfarin (Coumadin) 5 mg Tablet Take 1 tablet by mouth daily for 14 days. Take 10mg in evening of 08/24 and 08/25. Adjust dose according to instructions after 08/26 clinic visit 14 tablet 0 ??? montelukast (Singulair) 10 mg Tablet Take 10 mg by mouth daily. Allergies No Known Allergies Physical Exam: Temp: [36.6 ??C (97.9 ??F)-37.7 ??C (99.9 ??F)] Heart Rate: [48-58] Resp: [17-19] BP: (123-170)/(57-92) SpO2: [94 %-98 %] Heart Rate from SpO2: [48 bpm-59 bpm] General: NAD, resting comfortably. HEENT: PERRL, anicteric sclerae. CVS: Regular. Pulm: Normal work of breathing on room air. GI: Abdomen soft, non tender, non distended. MS: RUE: Ecchymosis of interior forearm, see image. Notably swollen compared to left. Tension overlying hematoma but compartments soft. Strength comparable between sides. Sensation intact. 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 Skin warm and pink. No tissue loss. Brisk capillary refill. LLE: No edema. Skin warm and pink. No tissue loss. Brisk capillary refill. Neuro: Grossly nonfocal, moving all extremities. Vascular R L Carotid 2 /2 2 /2 Radial 2 /2 2 /2 Femoral 2 /2 2 /2 Popliteal 2 /2 2 /2 DP 2 /2 2 /2 PT 2 /2 2 /2 Labs: Recent Labs 09/01/19 0341 WBC 10.8* HGB 12.2* HCT 37.0* PLATELET 226 Recent Labs 09/01/19 0341 NA 139 K 3.9 CL 104 CO2 25 BUN 12 CREATININE 0.88 CALCIUM 9.0 Pertinent Radiographic/Diagnostic Results: CTA RUE FINDINGS: Proximal most aspect of the radial artery not included in the [id number] given early takeoff. Small pseudoaneurysm (measuring approximately 5.5 mm in maximal diameter) arising from the anterolateral margin of the radial artery just distal to the level of the elbow joint. Just distal to the pseudoaneurysm there are multiple lobules of contrast which may represent either a thin necked pseudoaneurysm or active contrast extravasation, tracking approximately 10 mm in length. ?? Heterogeneous collection tracking along the flexor musculature of the lateral proximal forearm consistent with intramuscular hematoma, measures approximately 6.5 x 4.5 x 10 cm; superimposed infection cannot be excluded. The collection exerts mild extrinsic mass effect on the adjacent radial artery, without evidence of occlusion or thrombosis; however, there is irregular contour which may represent dissection. Additional, there is subcutaneous fluid dorsal to the elbow joint and subcutaneous induration along the medial/dorsal aspect of forearm and included distal aspect of the upper arm. Grossly unremarkable included osseous structures. ?? IMPRESSION Large intramuscular hematoma involving the flexor muscles of the proximal forearm, with small pseudoaneurysm arising from the adjacent radial artery; additional thin necked pseudoaneurysm versus multiple locules of contrast accumulation related to hemorrhage just distal to the main pseudoaneurysm. Irregular contour of the radial artery adjacent to the collection (proximal to the pseudoaneurysm sites) may represent spasm with narrowing due to mass effect from the adjacent hematoma, although dissection cannot be excluded. Superimposed infection cannot be excluded. Vascular Labs: None Assessment: Esteban Handley is a 53-year-old male with recent PEs and on anticoagulation, who presents with increasing tension in his right forearm and 2 pseudoaneurysms on his right radial artery. Pressure dressing applied after pressure was held at outside hospital. No signs of compartment syndrome or neurovascular compromise. Recommendation: Admit to vascular surgery Repeat duplex tomorrow Continue Lovenox, hold warfarin [facility] Vascular Surgery Associated attestation - Ping Grossman MD - 09/01/2019 10:11 AM EDT Pt seen and examined and vascular duplex images reviewed. I agree with plan outlined. documented in this encounter ED Notes Kalani Mcdowell RN - 08/31/2019 11:55 AM EDT Report called to floor. Patient belongings packed up and with patient. Patient is A, O x4 and able to make needs known Kalani Mcdowell RN - 08/31/2019 7:05 AM EDT Right arm bandage dry and intact. Right radial pulse positive cap refill less than 3 seconds patienthas 4/10 pain but states the pain is tolerable. Hong Duarte - 08/31/2019 6:06 AM EDT ED RESIDENT FOLLOW-UP NOTE: Time of transfer of care: 6:00am Care transferred from: Dr. Santos Condition at time of transfer: stable Clinical Summary: 53 y.o. old male in the process of being evaluated for right arm swelling. Please see Dr. Santos's notes for initial evaluation, assessment and plan. Briefly, the patient has arm swelling. Vascular surgery aware. Subsequent ED Course: ED Course as of Aug 30 1525 Sun August 31, 20191525 Upper extremity duplex: RIGHT: Widely patent distal brachial artery, proximal ulnar artery, and radial artery (from origin to wrist) with normal, triphasic Doppler waveforms throughout. ?? There is a hematoma, likely resolved pseudoaneurysm just distal to the A/C fossa measuring approximately 4.0 cm X 3.8 cm. A short??neck from the proximal radial artery was identified measuring approximately 1.8 mm wide with reduced, resistive arterial flow. No arterial flow identified within the resolved pseudoaneurysm. After evaluation of the patient's arm by vascular surgery, he was placed in a pressure dressing and duplex ultrasound of the upper extremity was performed. Given these findings, as well as his swelling, vascular surgery opted to admit the patient for further evaluation and treatment. Further treatmentdecisions will be at the discretion of the inpatient team. Hong Duarte MD Resident 08/31/19 1528 Micheline Cole RN - 08/31/2019 5:30 AM EDT SBP over 200, pt given home antihypertensives. Resting comfortably. Home CPAP in use. 0600: SBP below 150 after antihypertensives administered. Pending duplex studies. Micheline Cole RN - 08/31/2019 1:48 AM EDT Vascular surgery at bedside. Sohan Santos MD - 08/31/2019 12:31 AM EDT Images from the original note were not included. ED Resident Note Esteban Handley is an 53 y.o. male who presents to the ED with: Chief Complaint Patient presents with ??? Arm Pain I saw this patient on 08/31/2019. History is from the patient and the medical record.. HPI Esteban Handley is a 53 y.o. male who presents to the Emergency Department with right arm ecchymosis and swelling as a transfer from outside hospital [facility]. Patient was discharged on 08/24 for bilateral pulmonary emboli with PESI score of 102 with acute hypoxic respiratory failure. Right arterial line was placed for invasive blood pressure monitoring during that visit, today, patient was seen in the outside hospital due to right forearm swelling, ecchymosis. Patient states that this is not painful, though he implies it appears somewhat disconcerting. CT angiogramat the outside hospital revealed 2 discrete pseudoaneurysms of the right radial artery and patient was transferred here for evaluation by vascular surgery. On arrival, patient is hemodynamically stable with no complaints other than right arm swelling. Review of his outside hospital records include most relevantly, and INR of 1.4, on warfarin, PT of 13.7, also on Lovenox twice daily. His CBC, CMP are unremarkable but are detailed in the ED course below. Review of Systems: Review of Systems Constitutional: Negative for chills and fever. HENT: Negative for rhinorrhea. Eyes: Negative for pain. Respiratory: Negative for cough, chest tightness and shortness of breath. Cardiovascular: Negative for chest pain, palpitations and leg swelling. Gastrointestinal: Negative for abdominal pain, constipation, diarrhea, nausea and vomiting. Endocrine: Negative for polyuria. Genitourinary: Negative for difficulty urinating and frequency. Musculoskeletal: Negative for back pain, joint swelling and myalgias. Skin: Positive for color change. Negative for rash. Neurological: Negative for tremors, seizures, weakness, numbness and headaches. Hematological: Negative for adenopathy. Psychiatric/Behavioral: Negative for confusion. Physical Exam: Patient Vitals for the past 24 hrs: BP Temp Temp src Pulse Resp SpO2 Height Weight 08/31/19 0730 -- -- -- 50 -- 98 % -- -- 08/31/19 0700 129/66 36.8 ??C (98.2 ??F) Axillary 51 -- 99 % -- -- 08/31/19 0600 147/76 -- -- 60 -- 98 % -- -- 08/31/19 0524 -- -- -- 76 -- -- -- -- 08/31/19 0500 (!) 212/78 -- -- 62 -- 97 % -- -- 08/31/19 0430 -- -- -- 61 -- 98 % -- -- 08/31/19 0415 -- -- -- 61 -- 97 % -- -- 08/31/19 0400 200/80 -- -- 60 -- 97 % -- -- 08/31/19 0345 -- -- -- 62 -- 98 % -- -- 08/31/19 0330 -- -- -- 66 -- 96 % -- -- 08/31/19 0200 (!) 173/117 -- -- 67 -- -- -- -- 08/31/19 0145 -- -- -- 73 -- 97 % -- -- 08/31/19 0130 176/74 -- -- 65 -- 98 % -- -- 08/31/19 0115 -- -- -- 65 -- 98 % -- -- 08/31/19 0100 183/80 -- -- 67 -- 98 % -- -- 08/31/19 0045 183/84 -- -- 65 -- -- -- -- 08/31/19 0030 (!) 170/109 -- -- 70 -- 100 % -- -- 08/31/19 0028 (!) 165/95 37 ??C (98.6 ??F) Oral 67 19 99 % -- -- 08/31/19 0024 -- -- -- -- -- -- 180.3 cm (5' 11) (!) 178.3 kg (393 lb) Body mass index is 54.81 kg/m??. Physical Exam Vitals signs and nursing note reviewed. Constitutional: General: He is not in acute distress. Appearance: Normal appearance. He is obese. HENT: Head: Normocephalic and atraumatic. Right Ear: External ear normal. Left Ear: External ear normal. Nose: Nose normal. Mouth/Throat: Mouth: Mucous membranes are moist. Pharynx: Oropharynx is clear. Eyes: General: No scleral icterus. Right eye: No discharge. Left eye: No discharge. Conjunctiva/sclera: Conjunctivae normal. Neck: Musculoskeletal: Neck supple. Cardiovascular: Rate and Rhythm: Normal rate and regular rhythm. Pulses: Normal pulses. Heart sounds: Normal heart sounds. No murmur. No friction rub. No gallop. Pulmonary: Effort: Pulmonary effort is normal. No respiratory distress. Breath sounds: Normal breath sounds. Abdominal: General: Bowel sounds are normal. There is no distension. Palpations: Abdomen is soft. Tenderness: There is no abdominal tenderness. Musculoskeletal: Comments: Right upper extremity as pictured below, medial, lateral, volar, dorsal aspects are soft and nontender. 2+ radial pulses bl, sensation intact to soft touch medial, radial, ulnar distributions. Strength 5 out of 5 the affected extremity. Skin: Capillary Refill: Capillary refill takes less than 2 seconds. Neurological: Mental Status: He is alert. ED Course: - Patient seen under the supervision of the attending physician. - Medications, allergies, and past medical history reviewed. ED Course as of August 30 0800 Sun August 31, 2019 0134 WBC 10.84 0134 Hgb 13.3 0134 HCT 38.6 0134 Platelet count 242 0134 PT 13.7INR 1.4 0135 Sodium 137Potassium 3.9Chloride 104CO2 25.1Calcium 8.8Glucose 103BUN 10Creatinine 0.92 0135 Total protein 7.3Albumin 3.2Bilirubin, total 0.6AST 23ALT 32 Patient Vitals for the past 24 hrs: BP Temp Temp src Pulse Resp SpO2 Height Weight 08/31/19 0730 -- -- -- 50 -- 98 % -- -- 08/31/19 07 129/66 36.8 ??C (98.2 ??F) Axillary 51 -- 99 % -- -- 08/31/19 06 147/76 -- -- 60 -- 98 % -- -- 08/31/19 0524 -- -- -- 76 -- -- -- -- 08/31/19 0500 (!) 212/78 -- -- 62 -- 97 % -- -- 08/31/19 0430 -- -- -- 61 -- 98 % -- -- 08/31/19 0415 -- -- -- 61 -- 97 % -- -- 08/31/19 0400 200/80 -- -- 60 -- 97 % -- -- 08/31/19 0345 -- -- -- 62 -- 98 % -- -- 08/31/19 0330 -- -- -- 66 -- 96 % -- -- 08/31/19 0200 (!) 173/117 -- -- 67 -- -- -- -- 08/31/19 0145 -- -- -- 73 -- 97 % -- -- 08/31/19 0130 176/74 -- -- 65 -- 98 % -- -- 08/31/19 0115 -- -- -- 65 -- 98 % -- -- 08/31/19 0100 183/80 -- -- 67 -- 98 % -- -- 08/31/19 0045 183/84 -- -- 65 -- -- -- -- 08/31/19 0030 (!) 170/109 -- -- 70 -- 100 % -- -- 08/31/19 0028 (!) 165/95 37 ??C (98.6 ??F) Oral 67 19 99 % -- -- 08/31/19 0024 -- -- -- -- -- -- 180.3 cm (5' 11) (!) 178.3 kg (393 lb) Labs Reviewed - No data to display Request For 2nd Read CT Upper Extremity Final Result Large intramuscular hematoma involving the flexor muscles of the proximal forearm, with small pseudoaneurysm arising from the adjacent radial artery; additional thin necked pseudoaneurysm versus multiple locules of contrast accumulation related to hemorrhage just distal to the main pseudoaneurysm. Irregular contour of the radial artery adjacent to the collection (proximal to the pseudoaneurysm sites) may represent spasm with narrowing due to mass effect from the adjacent hematoma, although dissection cannot be excluded. Superimposed infection cannot be excluded. I have personally reviewed the image(s) and the resident's interpretation and agree with the findings, Fletcher Bull at 08/31/2019 3:44 AM Thank you for letting us participate in the care of this patient. For questions regarding this report, please contact the number below. Procedures: Assessment and Plan: 53 y.o. male with right radial artery pseudoaneurysm MDM: 53-year-old male, status post bilateral PEs with right heart strain and subsequent radial artery catheter placement now with 2 pseudoaneurysms with large intramuscular hematoma. There does not appear to be any signs of compartment syndrome, no discomfort, and neurovascular function appears to be intact to the affected arm. Patient continues on his warfarin, and Lovenox, we will continue them. Discussion with vascular surgery recommended arterial duplex ultrasound in the morning to further evaluate. I am significantly disinclined to discontinue anticoagulation in this gentleman given his recent history of life-threatening pulmonary emboli. Assessment: 1. Pseudoaneurysm Plan: -Continue anticoagulation Lovenox, warfarin -Arterial duplex ultrasound, right upper extremity -Disposition per vascular surgery. Patient was signed out to the oncoming emergency medicine team pending duplex ultrasound, and vascular surgery plan Sohan Santos MD Emergency Medicine PGY2 8:00 AM 08/31/19 Pager # [phone] Sohan Santos MD Resident 08/31/19 0805 Associated attestation - Jh Bentley MD - 09/01/2019 10:18 PM EDT ED ATTENDING ATTESTATION The patient was seen in conjunction with Dr. Santos, the resident physician. I have independently performed the bullard portions of the history and physical exam. I have reviewed all diagnostic studies personally including labs, imaging studies and EKGs. I have discussed the details of the case with the resident and agree with the assessment and plan as described in the resident note above unless noted in my separate note. ED Course as of Aug 31 2214 Sat August 30, [id number] Recent b/l PE w/ heart strain, discharged 08/24, now with hematoma to forearm w/ bleed. Vascular aware, recommends pressure and re-image. Vascular consult Thornton August 31, 2019 0344 Vascular recommending duplex in AM MDM: 53-year-old male presents emergency department as a transfer from outside hospital for evaluation byvascular surgery. Patient had CT MALLORY performed showing 2 discrete pseudoaneurysms to right radial artery. Patient with recent bilateral pulmonary embolisms, started on anticoagulation and had radial artery catheter placement after recent admission. After that time he developed large intramuscular hematoma for which she was seen at outside hospital. Discussed case with vascular, plan for duplex imaging in the morning. Unable to perform imaging overnight due to limitations in radiology resources. Patient to stay in the emergency department for vascular imaging in the morning. Patient signed out to morning emergency medicine team, dispo per imaging and final vascular recommendations. Yusuf Granda MD - 08/30/2019 9:40 PM EDT EM attending brief transfer acceptance note: Esteban Handley is a 53 y.o. who I accepted in transfer from the [employer] [facility] in the [facility] ED The patient will be evaluated in the Emergency Department for right FA bleeding The EM team will contact the vascular team as needed The OSH does not agree to take the patient back in transfer after our evaluation and treatment. Transfer and stabilization prior to transfer were not discussed This is a 53-year-old male who [place] [facility] [place] being admitted with bilateralPEs and right heart strain. During his admission, it sounds like he had an art line on his right wrist. He presented to the outside hospital ED today with a right forearm hematoma and swelling. He underwent a CT that showed a pseudoaneurysm and hematoma and a small area of hemorrhage. He has no distalneurovascular deficits. The case was discussed with vascular surgery who was on the phone during my phone call. Their recommendation was that the local team hold pressure for 45 minutes and then repeatthe imaging since the large majority of time, that is sufficient to treat this. The local hospitalist was not comfortable with that plan. As a result, patient will be transferred to the emergency department to be seen by the ED team and by vascular surgery. It is likely that vascular will recommend a duplex in the morning. I have asked the local team to ensure that they apply the 45 minutes of pressure prior to transport and then put a compressive dressing on the area. VSS. Yusuf Granda MD 08/30/[id number] Yusuf Granda MD 08/30/192148 documented in this encounter Miscellaneous Notes Plan of Care - Luis Morgan RN - 09/01/2019 5:26 AM EDT Problem: Patient Care Overview Goal: Plan of Care Review Outcome: Ongoing (Interventions Implemented as Appropriate) 08/31/19 1834 08/31/191944 Coping/Psychosocial Plan Of Care Reviewed With -- patient Plan of Care Review Progress progress towards functional goals is fair -- OUTCOME EVALUATION NOTE: OUTCOME SUMMARY: Patient alert and oriented X 4 with mild pain located to RUE. Patient shows to have peripheral pulses present with edema to RUE. Patient has not reported any chest pain or shortness of breath. Lung kong show to be clear with no labored breathing present. Patient has no baseline peripheral extremity numbness and tingling, but reports new onset tingling to RUE. Patient has been able to void with no distress noted. RUE remains in alicia wrap at this point. Patient has been NPO since midnight. Vital signs have been stable. Will continue to monitor. PLAN MOVING FORWARD: Pain control Mobilize Neurovascular checks INDIVIDUALIZED FALL PREVENTION INTERVENTIONS: Patient-specific fall risk factors per assessment: [current deficits]: No overt deficits noted Assistance [level of assistance required for transfers and ambulation]: Independent Supervision [direct monitoring required during toileting and ADLs]: No direct supervision required Surveillance [continuous indirect monitoring]: Masimo, Hourly rounds, Nursing communication Patient-specific fall prevention interventions for sensory deficits provided, if applicable: [X] No CPG GOAL OUTCOME EVALUATION: Goal: Individualization & Mutuality Outcome: Ongoing (Interventions Implemented as Appropriate) 08/31/19 1350 Mutuality/Individual Preferences What Anxieties, Fears or Concerns Do You Have About Your Health or Care? Im concerned that there isblood going into my arm What Questions Do You Have About Your Health or Care? Nope What Information Would Help Us Give You More Personalized Care? Vegetarian Goal: Fall Prevention-Safe Patient Handling Outcome: Ongoing (Interventions Implemented as Appropriate) 08/31/191944 Yanes Fall Risk History of Falling 0 Secondary Diagnosis 15 Ambulatory Aids 0 Intravenous Therapy/Heparin/Saline Lock 0 Gait/Transferring 10 Mental Status 0 Score 25 OTHER Yanes Fall Risk Med Restraint Interventions Safety Promotion/Fall Prevention activity supervised;fall prevention program maintained;safety round/check completed Positioning Body Position supine, head elevated Activity Activity Type activity adjusted per tolerance Activity Assistance Provided independent Assistive Device Utilized none Goal: Infection Control Outcome: Ongoing (Interventions Implemented as Appropriate) 08/31/191944 Safety Interventions Isolation Precautions standard precautions maintained Infection Prevention barrier precautions utilized;rest/sleep promoted;single patient room provided Coping Strategies Supportive Measures active listening utilized;counseling provided;decision- making supported;goal setting facilitated;positive reinforcement provided;problem solving facilitated;relaxation techniques pro moted;verbalization of feelings encouraged Goal: Discharge Needs Assessment Outcome: Ongoing (Interventions Implemented as Appropriate) 08/31/191833 Discharge Needs Assessment Concerns To Be Addressed no discharge needs identified Readmission Within The Last 30 Days previous discharge plan unsuccessful Provider Choice List(s) Given yes Equipment Needed After Discharge oxygen Discharge Disposition still a patient Current Health Anticipated Changes Related to Illness none Activity/Self Care Review of Systems Equipment Currently Used at Home oxygen Living Environment Transportation Available car;family or friend will provide Goal: Interdisciplinary Rounds/Family Conf Outcome: Ongoing (Interventions Implemented as Appropriate) 08/31/191833 Interdisciplinary Rounds/Family Conf Participants nursing Plan of Care - Stacy Urrutia RN - 08/31/2019 6:47 PM EDT Problem: Patient Care Overview Goal: Plan of Care Review Outcome: Ongoing (Interventions Implemented as Appropriate) 08/31/19 1834 Coping/Psychosocial Plan Of Care Reviewed With patient Plan of Care Review Progress progress towards functional goals is fair OUTCOME EVALUATION NOTE: OUTCOME SUMMARY: AOx4, SPP elevated 150s'160s, otherwise VSS. R arm alicia bandage CDI, fingers swollen (+2), CSM intact, reporting pain 3/10, mild tingling. EKG done. Voiding adequately, no BM this shift. Plan for NPO atmidnight. Pt ambulating independently in room. Will continue to monitor. PLAN MOVING FORWARD: Duplex tomorrow AM Neurovasc checks INDIVIDUALIZED FALL PREVENTION INTERVENTIONS: Patient-specific fall risk factors per assessment: [current deficits]: generalized weakness Assistance [level of assistance required for transfers and ambulation]: independent Supervision [direct monitoring required during toileting and ADLs]: Eyes on Surveillance [continuous indirect monitoring]: Masimo, hourly rounding, call juarez in reach Patient-specific fall prevention interventions for sensory deficits provided, if applicable: [X] N/A CPG GOAL OUTCOME EVALUATION: Goal: Individualization & Mutuality Outcome: Ongoing (Interventions Implemented as Appropriate) 08/31/19 1350 Mutuality/Individual Preferences What Anxieties, Fears or Concerns Do You Have About Your Health or Care? Im concerned that there isblood going into my arm What Questions Do You Have About Your Health or Care? Nope What Information Would Help Us Give You More Personalized Care? Vegetarian Goal: Fall Prevention-Safe Patient Handling Outcome: Ongoing (Interventions Implemented as Appropriate) 08/31/19 1246 Yanes Fall Risk History of Falling 0 Secondary Diagnosis 15 Ambulatory Aids 0 Intravenous Therapy/Heparin/Saline Lock 0 Gait/Transferring 10 Mental Status 0 Score 25 OTHER Yanes Fall Risk Med Restraint Interventions Safety Promotion/Fall Prevention activity supervised;nonskid shoes/slippers when out of bed;safety round/check completed Positioning Body Position independent Activity Activity Type activity adjusted per tolerance;ambulated in room;ambulated to bathroom Activity Assistance Provided independent Assistive Device Utilized none Goal: Infection Control Outcome: Ongoing (Interventions Implemented as Appropriate) 08/31/19 1246 Safety Interventions Isolation Precautions standard precautions maintained Infection Prevention single patient room provided Coping Strategies Supportive Measures active listening utilized Goal: Discharge Needs Assessment Outcome: Ongoing (Interventions Implemented as Appropriate) 08/31/191833 Discharge Needs Assessment Concerns To Be Addressed no discharge needs identified Readmission Within The Last 30 Days previous discharge plan unsuccessful Provider Choice List(s) Given yes Equipment Needed After Discharge oxygen Discharge Disposition still a patient Current Health Anticipated Changes Related to Illness none Activity/Self Care Review of Systems Equipment Currently Used at Home oxygen Living Environment Transportation Available car;family or friend will provide Goal: Interdisciplinary Rounds/Family Conf Outcome: Ongoing (Interventions Implemented as Appropriate) 08/31/191833 Interdisciplinary Rounds/Family Conf Participants nursing Problem: Tissue Perfusion, Ineffective Peripheral (Adult) Goal: Identify Related Risk Factors and Signs and Symptoms Related risk factors and signs and symptoms are identified upon initiation of Human Response Clinical Practice Guideline (CPG) Outcome: Ongoing (Interventions Implemented as Appropriate) 08/31/191833 Tissue Perfusion, Ineffective Peripheral Tissue Perfusion, Ineffective Peripheral: Related Risk Factors arterial flow reduced Signs and Symptoms (Ineffective Peripheral Tissue Perfusion) capillary refill: greater than 2 seconds (pediatric);skin color changes;aching pain Goal: Adequate Tissue Perfusion Patient will demonstrate the desired outcomes by discharge/transition of care. Outcome: Ongoing (Interventions Implemented as Appropriate) 08/31/191833 Tissue Perfusion, Ineffective Peripheral (Adult) Adequate Tissue Perfusion making progress toward outcome Initial Assessments - Lorena Schmitt RN - 08/31/2019 11:41 AM EDT Office of Care Management Initial Assessment LORENA SCHMITT RN reviewed record and discussed patient with Care Team. Source of Information: patient and chart Introduced self/reviewed role; services accepted. Reason for Hospitalization: 53-year-old male with recent PEs and on anticoagulation, who presents with increasing tension in his right forearm and 2 pseudoaneurysms on his right radial artery. I can't believe how bad that my arm got since Sunday. No past medical history on file. Hospitalizations Within the Past 30 Days: admitted on 08/21- 08/24 S/P Pulmonary embolus Anticipated Length Of Stay (If known): TBD Current Decision-Making Capacity: Yes Advance Care Planning: AD on file and have called [facility] and they are faxing the document to [facility]. Patient states that significant other Yusuf Menjivar is his primary DPOA. [facility] Current Coping/Education/Information Needs: concerns that his INR was not due to be drawn until thiscoming Sunday. When he spoke with his PCP, he reports that the PCP did not know anything about drawing his INR. He is on a Lovenox bridge and only had enough doses until this coming Sunday. Current Functional Ability: Laying in bed with right arm wrapped in alicia bandage. Reports that he hasbeen able to mobilize at home. Functional Status Prior to Admission: He reports that he is independent in mobility. He uses oxygen at 1.5 liters when mobilizing and 2 liters of oxygen that is bled through his CPAP machine. Home Environment: Lives in two level home with 5 POLA and 12 stairs to second floor. He had no issue accessing the 2nd floor. Social & Family Supports/Community Resources: Linda Goldberg is his primary support and is available to provide support in the home until at least September. Behavioral Health History: none discussed Substance Use/Abuse: None discussed Other Pertinent/Service Specific Information: Health/Prescription Coverage: Primary Insurance: [employer] Secondary Insurance: N/A Prescription Coverage: yes [facility] [place] [place] Other: Primary Care Provider: Becky Castillo MD [phone] Patient/Caregiver Goals of Treatment: to get home and to understand what is his care with warfarin will be. When asked who was supposed to be following his INR at home, he answered that he did not knowand neither did his PCP. Potential Needs for Transition of Care: Rehab/SNF: N/A Home Health: Does not anticipate the need for home health services. DME: CPAP and Home O2 is provided through:[facility] Intake office: tel: [phone] [place], [place] Office Dialysis: N/A Community Resources: N/A Transportation: S.O. Yusuf Other: Anticipated Barriers to Discharge/Special Considerations: none anticipated at this time. No issues giving his own Lovenox. Assessment: 53-year-old male with recent PEs and on anticoagulation, who presents with increasing tension in his right forearm and 2 pseudoaneurysms on his right radial artery. Plan: A member of the Care Management team will continue to monitor progress, follow for continuity of care and assist with transition of care planning. LORENA SCHMITT RN Pager: [phone] Consult Note - Clarence Rodas MD - 08/31/2019 4:54 AM EDT Patient Name: Esteban Handley Patient Age: 53 y.o. Birthdate: 1965 Admit date: 08/31/2019 Attending Physician: Jh Bentley MD Vascular Surgery Inpatient Consultation Date of Consultation: 08/31/2019 Consult Service: Vascular Surgery Place of Service: (X) Emergency Department ( ) Inpatient Unit ( ) Critical care Responsible Attending: Dr. Grossman Reason for Consult: We are seeing Esteban Handley at the request of Dr. Jh Bentley MD in consultation for R Radial pseudoaneurysms. I have reviewed the available records, interviewed and examined thepatient. History of Present Illness: Esteban Handley is a 53-year-old male who was recently diagnosed with PE, currently on Coumadin and Lovenox bridging. During his admission here he had a right-sided radial arterial line placed. Was discharged home last Sunday on the aforementioned anticoagulation. As the week went on he noticed progressing ecchymosis of his forearm as well as slow swelling. Discussed this with his PCP who said that that was normal but once it started to cause more pressure control even more he became concerned and went to [facility] for a CTA was performed showing intramuscular hematoma as well as 2 pseudoaneurysms of the radial artery. Vascular surgery was consulted and it was recommended that pressure be held and a repeat imaging be performed in the morning. Provider said they felt uncomfortable with this and therefore sent the patient here for further treatment. This was done after holding pressure for approximately 40 minutes. Of note, INR was 1.4 and Hgb 13.3 at OSH. On arrival the patient says he has some mild numbness, that he mostly relates to the dressing that was applied to the arm. Denies any shortness ofbreath, chest pain, nausea vomiting, abdominal pain or other numbness or tingling. No dizziness or lightheadedness or headaches. Review of Systems: 10 point review of systems negative except as noted above. Past Medical History: PE Past Surgical History: No past surgical history on file. Social History: Social History Socioeconomic History ??? Marital status: Single Spouse name: Not on file ??? Number of children: Not on file ??? Years of education: Not on file ??? Highest education level: Not on file Occupational History ??? Not on file Social Needs ??? Financial resource strain: Not on file ??? Food insecurity Worry: Not on file Inability: Not on file ??? Transportation needs Medical: Not on file Non-medical: Not on file Tobacco Use ??? Smoking status: Not on file Substance and Sexual Activity ??? Alcohol use: Not on file ??? Drug use: Not on file ??? Sexual activity: Not on file Lifestyle ??? Physical activity Days per week: Not on file Minutes per session: Not on file ??? Stress: Not on file Relationships ??? Social connections Talks on phone: Not on file Gets together: Not on file Attends moravian service: Not on file Active member of club or organization: Not on file Attends meetings of clubs or organizations: Not on file Relationship status: Not on file ??? Intimate partner violence Fear of current or ex partner: Not on file Emotionally abused: Not on file Physically abused: Not on file Forced sexual activity: Not on file Other Topics Concern ??? Not on file Social History Narrative ??? Not on file Family History No family history on file. Home Medications: No current facility-administered medications on file prior to encounter. Current Outpatient Medications on File Prior to Encounter Medication Sig Dispense Refill ??? atenoloL-chlorthalidone (TENORETIC) 100-25 mg Tablet TAKE 1 TABLET BY MOUTH AT BEDTIME ??? enoxaparin (LOVENOX) 100 mg/mL Syringe Inject 1.8 mLs subcutaneously 2 times daily. 30 Syringe 0 ??? losartan (Cozaar) 25 mg Tablet Take 50 mg by mouth every evening. Indications: high blood pressure ??? fluticasone propionate (FLONASE) 50 mcg/actuation Clubb, Suspension 1 spray by Each Nare route daily. ??? enoxaparin (LOVENOX) 100 mg/mL Syringe Inject 1.8 mLs subcutaneously every 12 hours. From Prieto Battery 14 Syringe 0 ??? warfarin (Coumadin) 5 mg Tablet Take 1 tablet by mouth daily for 14 days. Take 10mg in evening of 08/24 and 08/25. Adjust dose according to instructions after 08/26 clinic visit 14 tablet 0 ??? montelukast (Singulair) 10 mg Tablet Take 10 mg by mouth daily. Allergies No Known Allergies Physical Exam: Temp: [37 ??C (98.6 ??F)] Heart Rate: [60-73] Resp: [19] BP: (165-200)/(74-117) SpO2: [96 %-100 %] Heart Rate from SpO2: [60 bpm-74 bpm] General: NAD, resting comfortably. HEENT: PERRL, anicteric sclerae. CVS: Regular. Pulm: Normal work of breathing on room air. GI: Abdomen soft, non tender, non distended. MS: RUE: Ecchymosis of interior forearm, see image. Notably swollen compared to left. Tension overlying hematoma but compartments soft. Strength comparable between sides. Sensation intact. 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 Skin warm and pink. No tissue loss. Brisk capillary refill. LLE: No edema. Skin warm and pink. No tissue loss. Brisk capillary refill. Neuro: Grossly nonfocal, moving all extremities. Vascular R L Carotid 2 /2 2 /2 Radial 2 /2 2 /2 Femoral 2 /2 2 /2 Popliteal 2 /2 2 /2 DP 2 /2 2 /2 PT 2 /2 2 /2 Labs: No results for input(s): WBC, HGB, HCT, PLATELET in the last 72 hours. No results for input(s): NA, K, CL, CO2, BUN, CREATININE, PHOS, CALCIUM in the last 72 hours. Pertinent Radiographic/Diagnostic Results: CTA RUE FINDINGS: Proximal most aspect of the radial artery not included in the [id number] given early takeoff. Small pseudoaneurysm (measuring approximately 5.5 mm in maximal diameter) arising from the anterolateral margin of the radial artery just distal to the level of the elbow joint. Just distal to the pseudoaneurysm there are multiple lobules of contrast which may represent either a thin necked pseudoaneurysm or active contrast extravasation, tracking approximately 10 mm in length. ?? Heterogeneous collection tracking along the flexor musculature of the lateral proximal forearm consistent with intramuscular hematoma, measures approximately 6.5 x 4.5 x 10 cm; superimposed infection cannot be excluded. The collection exerts mild extrinsic mass effect on the adjacent radial artery, without evidence of occlusion or thrombosis; however, there is irregular contour which may represent dissection. Additional, there is subcutaneous fluid dorsal to the elbow joint and subcutaneous induration along the medial/dorsal aspect of forearm and included distal aspect of the upper arm. Grossly unremarkable included osseous structures. ?? IMPRESSION Large intramuscular hematoma involving the flexor muscles of the proximal forearm, with small pseudoaneurysm arising from the adjacent radial artery; additional thin necked pseudoaneurysm versus multiple locules of contrast accumulation related to hemorrhage just distal to the main pseudoaneurysm. Irregular contour of the radial artery adjacent to the collection (proximal to the pseudoaneurysm sites) may represent spasm with narrowing due to mass effect from the adjacent hematoma, although dissection cannot be excluded. Superimposed infection cannot be excluded. Vascular Labs: None Assessment: Esteban Handley is a 53-year-old male with recent PEs and on anticoagulation, who presents with increasing tension in his right forearm and 2 pseudoaneurysms on his right radial artery. Pressure dressing applied after pressure was held at outside hospital. No signs of compartment syndrome or neurovascular compromise. Recommend performing duplex in a.m. with reevaluation by vascular surgery at that point time. Maintain pressure dressing and continue anticoagulation regiment. Recommendation: X Consult service will continue to follow patient. Recommendations are above, please page if further consultation required. Clarence Rodas MD, PhD General Surgery PGY-2 Pager [phone] 08/31/19 ED Triage - Micheline Cole RN - 08/31/2019 12:15 AM EDT Pt BIB EMS, transfer from [facility]. [place] [facility] of a [place]. Was d/c oncoumadin and lovenox injections, which he has been taking as prescribed. Beginning on Sunday he reports that he had redness/purple discoloration and a pressure pain on his R forearm. It has progressively gotten worse which prompted his visit to [facility] today. Upon assessment, forearm is purple and swollen. Radial pulse present upon palpation. Denies numbness/tingling. SBP over 170, MD aware. Otherwise VSS on RA. NAD. documented in this encounter Plan of Treatment Not on filedocumented as of this encounter Procedures Procedure Name Priority Date/Time Associated Diagnosis Comme nts ARTERIAL DUPLEX ARM, STAT 09/01/2019 12:46 Pseudoaneu rysm Results for this UNILAT PM EDT Radial artery procedure are in aneurysm, right the results section. HEMOGRAM Routine 09/01/2019 3:41 Results for this AM EDT procedure are i n the results section. DIFFERENTIAL, Routine 09/01/2019 3:41 Results for this AUTOMATED AM EDT procedure are i n the results section. HC PROTHROMBIN TIME Routine 09/01/2019 3:41 Resul ts for this AM EDT procedure are i n the results section. HC CBC,PLT & AUTO Routine 09/01/2019 3:41 DIFF AM EDT BASIC METABOLIC Routine 09/01/2019 3:41 Results f or this PANEL (NON-FASTING) AM EDT procedur e are in the results section. EKG 12-LEAD STAT 08/31/2019 2:55 Other acute pulmonary Res ults for this PM EDT embolism without acute proce dure are in cor pulmonale the results section. ARTERIAL DUPLEX ARM, STAT 08/31/2019 6:58 Pseudoaneurysm Re sults for this UNILAT AM EDT procedure are i n the results section. REQUEST FOR 2ND READ STAT 08/31/2019 1:[address] for this CT UPPER EXTREMITY AM EDT procedure are in the results section. documented in this encounter Results Arterial Duplex Arm, Unilat (09/11/2019 8:40 AM EDT) Component Value Ref Test Analysis Performed At [facility] Action Engine Range Method Time Signature VB Text Department: Vascular Surgery Lab VASCU[facility] Report Patient: [id number] (ESTEBAN HANDLEY) CPT: 54122 ICD10: I72.1 Referring Physician: PING GROSSMAN ?? Phone: Indications: s/p R PSA [...] / Volume Laterality 09/11/2019 8:40 AM EDT Ping Grossman MD VASCULAR ORDERABLES Performing Organization Address City/State/ZIP Code Phon e Number [email or web address] Arterial Duplex Arm, Unilat (09/01/2019 12:46 PM EDT) Component Value Ref Test Analysis Performed At [facility] Range Method Time Signature VB Text Department: Vascular Surgery Lab VASCUBASE Report Patient: [id number] (ESETBAN HANDLEY) CPT: 03990 ICD10: I72.1;I72.9 Referring Physician: PING GROSSMAN ?? Phone: Indications: Thrombosed Right proximal radial ar tricia pseudoaneurysm by duplex 08/30 now for f/u; ? change ICD10 Diagnosis Code: I72.1, I72.9 Findings: Right ?PSV (cm/s) ??EDV (cm/s) ? ? Radial Artery, Proximal ? 156 ?18 ?? Interpretation: RIGHT: Widely patent proximal radial artery with normal, tri phasic Doppler waveforms. There is a thrombosed radial artery pseu doaneurysm measuring approximately 3.6 cm X 3.8 cm which is unchanged compared to previous exam. No arterial flow identified within the resolved pseudoaneurysm. No identifiable change when compared to the previous exam do ne 08/31/2019. Electronically Signed by: PING GROSSMAN on 2019-09-01 02:36:57 PM VB Text End of Report VASCUBASE Report Specimen (Source) Anatomical Collection Method Collection Time Re ceived Time Location / / Volume Laterality 09/01/2019 12:46 PM EDT Ping Grossman MD VASCULAR ORDERABLES Performing Organization Address City/State/ZIP Code Phon e Number [facility] (ABNORMAL) Differential, Automated (09/01/2019 3:41 AM EDT) [facility] gist Method Time Signature Neutrophils % 63.8 % [facility]OR[facility]ORY Neutr Abs (ANC) 6.92 (H) 1.70 - [facility] 6.10 [facility] x10(3)/[facility] L LABORATORY Lymphocytes % 23.8 % [facility] Lymphocytes Abs 2.6 0.9 - 3.2 [facility] x10(3)/[facility] LABORATORY Monocytes % 7.4 % [facility] Monocyte Abs 0.8 0.3 - 0.9 [facility] x10(3)/[facility] LABORATORY Eosinophils % 4.3 % [facility] Eosinophils Abs 0.5 (H) 0.0 - 0.4 [facility] x10(3)/[facility] LABORATORY Basophils % 0.3 % [facility] Basophils Abs 0.0 0.0 - 0.1 [facility] x10(3)/[facility] LABORATORY Immature Gran % 0.40 % [facility] Comment: Immature granulocytes(IG's)percentage an d absolute count will include metamyelocytes, myelocytes, and promyelo cytes. Blood smears from CBCs yielding IG's will be scanned manually for concor dance. If this scan disagrees with the automated IG or if promyelocytes are not ed, a manual differential will be performed. Angelia Gran Abs 0.04 0.00 - 0.04 x10(3)/[facility] Specimen Anatomical Collection Method Collection Time Receive d Time (Source) Location / / Volume Laterality Blood specimen 09/01/2019 3:41 AM 020 3:53 (specimen) EDT AM EDT Resulting Agency Comment Spec In Lab Gricelda Odom MD HEMATOLOGY ORDERABLES Performing Organization Address City/State/[place] [address] (ABNORMAL) Hemogram (09/01/2019 3:41 AM EDT) Analysis Performed At Patho logist Time Signature WBC 10.8 (H) 4.0 - 9.5 [facility] x10(3)/[facility] LABORATORY RBC 4.02 (L) 4.58 - [facility] 5.54 [facility] x10(6)/[facility] LABORATORY Hemoglobin 12.2 (L) 13.7 - [facility] 16.[facility] gm/dL [facility] LAB[facility] Hematocrit 37.0 (L) 40.5 - [facility] 48.5 % [facility] MCV 92.0 82.9 - [facility] 93.1 [facility] LABORATORY MCH 30.3 27.5 - [facility] 32.1 pg [facility] MCHC 33.0 32.0 - [facility] 35.[facility] gm/dL [facility] Platelets 226 145 - 357 [facility] x10(3)/[facility] LABORATORY RDWSD 45.1 (H) 36.0 - [facility] 45.0 [facility] LABORATORY RDWCV 13.7 11.4 - [facility] 13.8 % [facility] LABORATORY MPV 10.0 7.6 - 12.9 [facility] LABORATORY nRBC % Auto 0.0 % [facility] nRBC Abs Auto 0.000 0.000 - [facility] 0.000 [facility] x10(3)/[facility] LABORATORY Specimen Anatomical Collection Method Collection Time Receive d Time (Source) Location / / Volume Laterality Blood specimen 09/01/2019 3:41 AM 020 3:53 (specimen) EDT AM EDT Resulting Agency Comment Spec In Lab Gricelda dOom MD HEMATOLOGY ORDERABLES Performing Organization Address City/[facility] Code Phon e Number [address] (ABNORMAL) Prothrombin Time (09/01/2019 3:41 AM EDT) P athologist Signature PT 17.8 (H) 9.4 - 12.5 [facility] LABORATORY INR 1.5 [facility] Comment: An INR <2.0 indicates adequate procoagul ant activity for hemostasis in most patients without underlying bleeding dis orders, though the INR may not adequately reflect hemostatic capacity i n patients with liver disease and synthetic impairment. The recommended ta rget INR range for therapeutic anticoagulation is 2.0 ? 3.0 for most applications, though lower and higher ranges may be appropriate depending on c linical circumstances. Specimen Anatomical Collection Method Collection Time Receive d Time (Source) Location / / Volume Laterality Blood specimen 09/01/2019 3:41 AM 020 3:53 (specimen) EDT AM EDT Resulting Agency Comment Spec In Lab Ping Grossman MD HEMATOLOGY ORDERABLES Performing Organization Address City/[facility]/[place]IP [place] [address] Basic Metabolic Panel (non-fasting) (09/01/2019 3:41 AM EDT) P athologist Signature Glucose Lvl 98 65 - 199 [facility] mg/dL [facility] Comment: Diabetes: >=200 mg/dL plus symp toms BUN 12 10 - 20 mg/dL [facility] Creatinine 0.88 0.80 - 1.50 mg/dL [facility] LAB[facility] Sodium 139 135 - 145 mmol/L [facility] Potassium 3.9 3.5 - 5.0 mmol/L [facility] Comment: Please note: ??Patients with WBC >100,00 0 may have falsely elevated Potassium levels. ??For accurate Potassium quantif ication in these patients send serum separator tube (gold top) for subsequent determinations. ??Contact the Clinical Chemistry Laboratory if there are any qu estions. Chloride 104 98 - 107 mmol/L [facility] CO2 25 22 - 31 mmol/L [facility] Anion Gap 10 5 - 15 mmol/L [facility] Calcium 9.0 8.5 - 10.5 mg/dL [facility] Estimated GFR 99 >=60 mL/min/1.73 m?? [facility] Comment: The eGFR was calculated using the CKD-EP I equation. As with all creatinine based estimates of kidney function, eGFR values calculated with the CKD-EPI equation are not accurate in patients wi th acute kidney failure, extremes of body mass or the acutely ill. [email or web address] [place] eGFR 114 >=60 mL/min/1.73 m?? [facility] Comment: The eGFR was calculated using the CKD-EP I equation. As with all creatinine based estimates of kidney function, eGFR values calculated with the CKD-EPI equation are not accurate in patients wi th acute kidney failure, extremes of body mass or the acutely ill. [email or web address] Specimen Anatomical Collection Method Collection Time Receive d Time (Source) Location / / Volume Laterality Blood specimen 09/01/2019 3:41 AM 020 3:53 (specimen) EDT AM EDT Resulting Agency Comment Spec In Lab Ping Grossman MD CHEMISTRY ORDERABLES Performing Organization Address City/State/ZIP Code Phon e Number [place] [id number] EKG 12 Lead (08/31/2019 2:55 PM EDT) Component Value Ref Range Test Analysis Performed Pathologis t Method Time At Signature Ventricular rate 58 BPM MUSE SYSTEM Atrial Rate 58 BPM MUSE SYSTEM P-R Interval 160 ms MUSE SYSTEM QRS Duration 104 ms MUSE SYSTEM Q-T Interval 518 ms MUSE SYSTEM QTC Calculated 508 ms MUSE SYSTEM (Bezet) Calculated P [place] 35 degrees MUSE SYSTEM Calculated R [place] -61 degrees MUSE SYSTEM Calculated T [place] -49 degrees MUSE SYSTEM INTERPRETATION Sinus bradycardia MUSE SY STEM Left anterior fascicular block Anterior infarct , age undetermined ??vs lead placement T wave abnormality, consider inferolateral ischemia Prolonged QT Abnormal ECG When compared with ECG of 22-AUG-2019 18:42, T wave inversion more evident in Inferior leads Confirmed by Safia Edwards ([id number]) on 09/01/2019 7:53:26 A M Specimen Anatomical Collection Method Collection Time Receive d Time (Source) Location / / Volume Laterality 08/31/2019 2:55 PM 0 7:53 EDT AM EDT Ping Grossman MD ECG ORDERABLES Performing Organization Address City/State/ZIP Code Phon e Number MUSE SYSTEM Arterial Duplex Arm, Unilat (08/31/2019 6:58 AM EDT) Component Value Ref Test Analysis Performed At Patholo gist Range Method Time Signature VB Text Department: Vascular Surgery Lab VASCUBASE Report Patient: [id number] (ESTEBAN HANDLEY) CPT: 76451 ICD10: R09.89;I72.9 Referring Physician: PNIG GROSSMAN ?? Phone: Indications: Right proximal radial artery pseudoaneurysm p er CT now for f/u following compression overnight; ? pseudoaneurysm ICD10 Diagnosis Code: R09.89, I72.9 Findings: Right ?PSV (cm/s) ??EDV (cm/s) ? ? Brachial Artery, Distal ?83 ?10 ?? Radial Artery, Proximal ? 116 ?11 ?? Radial Artery, ??Mid ?47 ? 0 ?? Radial Artery, Distal ?41 ? 0 ? ? Ulnar Artery, Proximal ?132 ?11 ?? Interpretation: RIGHT: Widely patent distal brachial art yoko, proximal ulnar artery, and radial artery (from origin to wrist) with normal, triphasic Doppler waveforms throughout. There is a hematoma, likely resolved pseudoaneurysm just dis beatrice to the A/C fossa measuring approximately 4.0 cm X 3.8 cm. A short neck from the proximal radial artery was identified measuring a pproximately 1.8 mm wide with reduced, resistive arterial flow. No arterial flow identified within the resolved pseudoaneurysm. Comparison: ??No previous study in our vascular lab da tabase for comparison. Notification: Dr. Sai Perla was present for exam. Electronically Signed by: PING GROSSMAN on 2019-09-01 09:45:54 AM VB Text End of Report [facility]AS[facility] Report Specimen (Source) Anatomical Collection Method Collection Time Re ceived Time Location / / Volume Laterality 08/31/2019 6:58 AM EDT Ping Grossman MD VASCULAR ORDERABLES Performing Organization Address City/State/ZIP Code Phon e Number [facility] Request For 2nd Read CT Upper Extremity (08/31/2019 1:27 AM EDT) Anatomical Region Laterality Modality Shoulder, Arm, Elbow, Forearm, Wrist, Hand SO Specimen (Source) Anatomical Location Collection Method / Collectio n Time Received Time / Laterality Volume Impressions 08/31/2019 3:44 AM EDT Large intramuscular hematoma involving the flexor muscles of the proximal forearm, with small pseudoaneurysm arisi ng from the adjacent radial artery; additional thin necked pseudoaneurysm ve rsus multiple locules of contrast accumulation related to hemorrhage just distal to the main pseudoaneurysm. Irregular contour of the radial artery a djacent to the collection (proximal to the pseudoaneurysm sites) may represent spasm with narrowing due to mass effect from the adjacent hematoma, although dis section cannot be excluded. Superimposed infection cannot be excluded. I have personally reviewed the image(s) and the resident's interpretation and agree with the findings, Fletcher Bull at 08/31/2019 3:44 AM Thank you for letting us participate in the care of this patient. For questions regarding this report, please contact e number below. ? Narrative 08/31/2019 3:44 AM EDT EXAMINATION: REQUEST FOR 2ND READ CT UPPER EXTREMITY CLINICAL HISTORY: ? pseudoaneurysm; What Modality is the exam? CT Scan; Body Part (please add comments as necessary): Upper extremity; Sending Institution [facility]; Date of exam [id number]; I believe a reinterpretation of this exam may alter care of Patient. Yes TECHNIQUE: Reinterpretation request for outside CTA of the right upper extremity (elbow to hand) performed following intravenous ad ministration of contrast material. COMPARISON: CT PE 08/22/2019 FINDINGS: Proximal most aspect of the radial arter y not included in the [id number] given early takeoff. Small pseudoaneurys m (measuring approximately 5.5 mm in maximal diameter) arising from the anter olateral margin of the radial artery just distal to the level of the elbow micheline int. Just distal to the pseudoaneurysm there are multiple lobules of contrast w hich may represent either a thin necked pseudoaneurysm or active contrast extrav asation, tracking approximately 10 mm in length. Heterogeneous collection tracking along the flexor musculature of the lateral proximal forearm consistent with intramu scular hematoma, measures approximately 6.5 x 4.5 x 10 cm; superimposed infectio n cannot be excluded. The collection exerts mild extrinsic mass effect on the adjacent radial artery, without evidence of occlusion or thrombosis; how ever, there is irregular contour which may represent dissection. Additional, th ere is subcutaneous fluid dorsal to the elbow joint and subcutaneous induration along the medial/dorsal aspect of forearm and included distal aspect of th e upper arm. Grossly unremarkable included osseous structures. Procedure Note Fletcher Bull MD - 08/31/2019 EXAMINATION: REQUEST FOR 2ND READ CT UPP ER EXTREMITY CLINICAL HISTORY: ? pseudoaneurysm; What Modality is the exam? CT Scan; Body Part (please add comments as necessary): Upper extremity; Sending Institution [facility]; Date of exam [id number]; I believe a reinterpretation of this exam may alter care of Patient. Yes TECHNIQUE: Reinterpretation request for outside CTA of the right upper extremity (elbow to hand) performed following intravenous ad ministration of contrast material. COMPARISON: CT PE 08/22/2019 FINDINGS: Proximal most aspect of the radial arter y not included in the [id number]-vorq given early takeoff. Small pseudoaneurys m (measuring approximately 5.5 mm in maximal diameter) arising from the anter olateral margin of the radial artery just distal to the level of the elbow micheline int. Just distal to the pseudoaneurysm there are multiple lobules of contrast w hich may represent either a thin necked pseudoaneurysm or active contrast extrav asation, tracking approximately 10 mm in length. Heterogeneous collection tracking along the flexor musculature of the lateral proximal forearm consistent with intramu scular hematoma, measures approximately 6.5 x 4.5 x 10 cm; superimposed infectio n cannot be excluded. The collection exerts mild extrinsic mass effect on the adjacent radial artery, without evidence of occlusion or thrombosis; how ever, there is irregular contour which may represent dissection. Additional, th ere is subcutaneous fluid dorsal to the elbow joint and subcutaneous induration along the medial/dorsal aspect of forearm and included distal aspect of th e upper arm. Grossly unremarkable included osseous structures. IMPRESSION Large intramuscular hematoma involving t he flexor muscles of the proximal forearm, with small pseudoaneurysm arisi ng from the adjacent radial artery; additional thin necked pseudoaneurysm ve rsus multiple locules of contrast accumulation related to hemorrhage just distal to the main pseudoaneurysm. Irregular contour of the radial artery a djacent to the collection (proximal to the pseudoaneurysm sites) may represent spasm with narrowing due to mass effect from the adjacent hematoma, although dis section cannot be excluded. Superimposed infection cannot be excluded. I have personally reviewed the image(s) and the resident's interpretation and agree with the findings, Fletcher Bull at 08/31/2019 3:44 AM Thank you for letting us participate in the care of this patient. For questions regarding this report, please contact e number below. Jh Bentley MD IMG OUTSIDE INTERPRETATION O RDERABLES documented in this encounter Visit Diagnoses Diagnosis Pseudoaneurysm Aneurysm of unspecified site Radial artery aneurysm, right Aneurysm of other specified artery Other acute pulmonary embolism without a cute cor pulmonale documented in this encounter Admitting Diagnoses Diagnosis Radial artery aneurysm, right Aneurysm of other specified artery documented in this encounter Administered Medications Inactive Administered Medications - up to 3 most recent administrations Medication Order MAR Action Action Date Dose Rate Site atenoloL (Tenormin) tablet 100 mg Given 09/01/2019 8:39 AM EDT 100 mg 100 mg, Oral, DAILY, First dose on 08/31/19 at 0413, Until Discontinued, Routine Given 08/31/2019 5:24 AM EDT 100 mg chlorthalidone (Hygroten) tablet 25 mg Given 09/01/2019 8:39 AM EDT 25 mg 25 mg, Oral, DAILY, First dose on 08/31/19 at 0413, Until Discontinued, Routine Given 08/31/2019 5:25 AM EDT 25 mg enoxaparin (LOVENOX) injection 100 mg Given 09/01/2019 8:41 AM EDT 100 mg 100 mg, Subcutaneous, EVERY 12 HOURS SCHEDULED (2 times per day), First dose on 08/31/19 at 0447, Until Discontinued, Enoxaparin 100 mg and 80 mg syringe to equal 180 mg total, Routine Given 08/31/2019 9:47 PM EDT 100 mg Given 08/31/2019 5:26 AM EDT 100 mg enoxaparin (LOVENOX) injection 80 mg Given 09/01/2019 8:40 AM EDT 80 mg 80 mg, Subcutaneous, EVERY 12 HOURS SCHEDULED (2 times per day), First dose on 08/31/19 at 0447, Until Discontinued, Enoxaparin 100 mg and 80 mg syringe to equal 180 mg t, Routine Given 08/31/2019 9:47 PM EDT 80 mg Given 08/31/2019 5:27 AM EDT 80 mg losartan (Cozaar) tablet 50 mg Given 08/31/2019 4:32 PM EDT 50 mg 50 mg, Oral, EVERY EVENING, First dose (after last modification) on 08/31/19 at 0413, Until Discontinued, Routine Given 08/31/2019 5:24 AM EDT 50 mg ondansetron (ZOFRAN) injection 4-8 mg 4-8 mg, Intravenous, EVERY 8 HOURS PRN, Starting on 08/31/19 at 1246, Until 09/01/19 at 1646, Nausea, Start with 4mg and if ineffective in 30 minutes, give an additional 4mg ondansetron (Zofran) tablet 4-8 mg 4-8 mg, Oral, EVERY 8 HOURS PRN, Startin g on 08/31/19 at 1246, Until Sun09/01/19 at 1646, Nausea, Vomiting, If multipl e antiemetics are ordered, use ondansetron first. PO Preferred. If patient unable to take PO, may give IV if ordered. May repeat times one in 45 minutes if ineffective. Noe warfarin (COUMADIN) daily order reminder Oral, EVERY 24 HOURS, First dose on Sun09/01/19 at 1400, Until Discontinued, If the daily warfarin order has not been placed , contact the Provider to confirm that the order will be written, the dose is held or discontinue d. warfarin (Coumadin) tablet 5 mg Given 08/31/2019 5:25 AM EDT 5 mg 5 mg, Oral, ONCE, 1 dose, On 08/31/19 at 0450, DO NOT SPLIT, CRUSH OR OPEN, Routine documented in this encounter Active and Recently Administered Medications Times are shown in EDT. Scheduled Medication Order 08/30/2019 08/31/2019 09/01/2019 atenoloL (Tenormin) tablet 100 mg 0524 ( Given - Provider: Micheline Cole RN) 0839 (Given - Provider: Aditi Marrufo RN) 100 mg, Oral, DAILY, First dose on Sun at 0413, Until Discontinued, Routine chlorthalidone (Hygroten) tablet 25 mg 0 525 (Given - Provider: Micheline Cole, ABEL) 0839 (Given - Provider: Aditi Marrufo , ABEL) 25 mg, Oral, DAILY, First dose on Sun 02/09 at 0413, Until Discontinued, Routine enoxaparin (LOVENOX) injection 100 mg(Linked Group 1) 525 (Given - Provider: Micheline Cole RN)2146 (Given - Provider: Luis Morgan, ABEL) 0841 (Given - Provider: Aditi Marrufo RN) 100 mg, Subcutaneous, EVERY 12 HOURS BRANDON EDULED (2 times per day), First dose on 08/31/19 at 0447, Until Discontinued, Enoxaparin 100 mg and 80 mg syringe to equal 180 mg total, Routine enoxaparin (LOVENOX) injection 80 mg(Linked Group 1) 526 (Given - Provider: Micheline Cole RN)2146 (Given - Provider: Luis Morgan, ABEL) 08 (Given - Provider: Aditi Marrufo RN) 80 mg, Subcutaneous, EVERY 12 HOURS SCHE DULED (2 times per day), First dose on 08/31/19 at 0447, Until Discontinued, Enoxaparin 100 mg and 80 mg syringe to equal 180 mg t, Routine losartan (Cozaar) tablet 50 mg 523 (Giv en - Provider: Micheline Cole RN)163 (Given - Provider: Stacy Urrutia RN) 50 mg, Oral, EVERY EVENING, First dose ( after last modification) on 08/31/19 at 0413, Until Discontinued, Routine warfarin (COUMADIN) daily order reminder 1400 (Due) Oral, EVERY 24 HOURS, First dose on 09/01/19 at 1400, Until Discontinued, If the daily warfarin order has not been placed, contact the Provider to confirm that the order will be written, the dose is held or discontinued. warfarin (Coumadin) tablet 5 mg (COMPLETED) 524 (Given - Provider: Micheline Cole RN) 5 mg, Oral, ONCE, 1 dose, 08/31/19 at 0450, DO NOT SPLIT, CRUSH OR OPEN, Routine PRN Medication Order 08/30/2019 08/31/2019 09/01/2019 acetaminophen (Tylenol) tablet 500 mg 500 mg, Oral, EVERY 4 HOURS PRN, Startin g 08/31/19 at 1246, Until 09/01/19 at 1646, Pain, For Mild Pain (1-3) or Fever., Maximum dose of acetaminophen is 4000 mg from all sources in 24 hours., Routine ondansetron (ZOFRAN) injection 4-8 mg(Linked Group 2) 4-8 mg, Intravenous, EVERY 8 HOURS PRN, Starting 08/31/19 at 1246, Until 09/01/19 at 1646, Nausea, Start with 4mg and if ineffective in 30 minutes, give an additional 4mg ondansetron (Zofran) tablet 4-8 mg(Linked Group 2) 4-8 mg, Oral, EVERY 8 HOURS PRN, Startin g 08/31/19 at 1246, Until 09/01/19 at 1646, Nausea, Vomiting, If multiple antiemetics are ordered, use ondansetron first. PO Preferred. If patient unab le to take PO, may give IV if ordered. M ay repeat times one in 45 minutes if ineffective. , Routine oxyCODONE (Roxicodone) tablet 5-10 mg 5-10 mg, Oral, EVERY 4 HOURS PRN, Starti ng Sun 08/31/19 at 1246, Until 09/01/19 at 1646, Pain, For Moderate Pain (4-6), Initial dose 5 mg. If pain control not adequate in 60 minutes, give additional 5 mg., Routine Linked Groups Order Group 1: enoxaparin (LOVENOX) injection 100 mgJump to med 100 mg, Subcutaneous, EVERY 12 HOURS BRANDON EDULED (2 times per day), First dose on 08/31/19 at 0447, Until Discontinued
Enoxaparin 100 mg and 80 mg syringe to equal 180 mg total
Routine And enoxaparin (LOVENOX) injection 80 mgJump to med 80 mg, Subcutaneous, EVERY 12 HOURS SCHE DULED (2 times per day), First dose on 08/31/19 at 0447, Until Discontinued
Enoxaparin 100 mg and 80 mg syringe to equal 180 mg t
Routine Group 2: ondansetron (Zofran) tablet 4-8 mgJump to med 4-8 mg, Oral, EVERY 8 HOURS PRN, Startin g 08/31/19 at 1246, Until 09/01/19 at 1646, Nausea, Vomiting
If multiple antiemetics are ordered, use ondansetron first. PO Preferre d. If patient unable to take PO, may giv e IV if ordered. May repeat times one in 45 minutes if ineffective.
Routine Or ondansetron (ZOFRAN) injection 4-8 mgJump to med 4-8 mg, Intravenous, EVERY 8 HOURS PRN, Starting 08/31/19 at 1246, Until 09/01/19 at 1646, Nausea
Start with 4mg and if ineffective in 30 minutes, give an additional 4mg
documented in this encounter Care Teams Die Tester Relationship Specialty Start Date End Date Claudio Alegre MD PCP - General General Internal Medicine 09/01/19 [address] [place] [address] documented as of this encounter
--- OUTSIDE RECORDS SUMMARY | 2021-12-09 01:17 | XMS_ITS | Encounter Summary ---
:1965 Author Organization [facility] Address [place] [id number] Care Team Providers Name Role Phone Becky Castillo MD Primary Care Provider Reason for Referral Diagnostic Test (Routine) - Closed Specialty Diagnoses / Procedures Referred By Contact Refer red To Contact Cardiology Diagnoses Other acute pulmonary embolism without acute cor pulmonale Epifanio Hassan MD [facility] Non-Inv Card Lab Procedures Echocardiogram Transthoracic([facility]) [facility] INTERNAL [place], [place] [phone] [place] [address] Referral ID Status Reason Start Date Expiration Date Visits V isits Requested Authorized [id number] Closed Specialty 08/25/2019 08/24/2020 1 1 Service Requested Consultation (Routine) - Closed Specialty Diagnoses / Procedures Referred By Contact Refer red To Contact Cardiology Diagnoses Other acute pulmonary embolism without acute cor pulmonale Post hospital follow up for PE Epifanio Hassan MD Henkin, Stanislav, MD [facility] [place] [address] [place] [address] Referral ID Status Reason Start Date Expiration Date Visits V isits Requested Authorized [id number] Closed Consult, 08/25/2019 08/24/2020 1 1 Test & Treat Reason for Visit Auth/Cert Specialty Diagnoses / Procedures Referred By Contact Refer red To Contact Diagnoses Pulmonary embolism Bilateral PE/COVID-19 r/o Procedures ER IPI Admit Referral ID Status Reason Start Date Expiration Date Visits Requ ested Visits Authorized [id number] 1 1 Encounter Details Date Type Department Care Team Description 08/22/2019 - Hospital Encounter Cardiac Special Hen[place], Other acute pulmonary embolism without acute cor pulmonale (Primary Dx); 08/25/2019 Care Unit Brigitte Mcqueen MD Iatrogenic pulmonary embolism, initial e ncounter; [facility] acu te pulmonary embolism with acute cor pulmonale [facility] [place] [id number] [phone] Social History Tobacco Use Types Packs/Day Years Used Date Never Assessed Sex Assigned at Date Recorded Not on file documented as of this encounter Last Filed Vital Signs Vital Sign Reading Time Taken Comments Blood Pressure 128/79 08/25/2019 3:45 PM EDT Pulse 82 08/25/2019 3:45 PM EDT Temperature 37.3 ??C (99.1 ??F) 08/25/2019 3:45 PM EDT Respiratory Rate 27 08/25/2019 3:45 PM EDT Oxygen Saturation 95% 08/25/2019 3:45 PM EDT Inhaled Oxygen Concentration - - Weight 179.3 kg (395 lb 4.6 oz) 08/25/2019 5:03 AM EDT Height 180.3 cm (5' 11) 08/22/2019 6:00 PM EDT Body Mass Index 55.13 08/22/2019 6:00 PM EDT documented in this encounter Discharge Summaries Wagner Hawkins MD - 08/25/2019 12:09 PM EDT Images from the original note were not included. Cardiology - Discharge Summary Patient Name: Esteban Handley Patient Age: 53 y.o. Birthdate: 1965 Admit date: 08/22/2019 Discharge date and time: 08/25/2019 Attending Physician: Wagner Hawkins MD Follow-up Recommendations for Providers: 1. Cardiology and Primary Care: [ ] Please follow up with patient regarding his recent hospitalization for bilateral PE with RH strain, which was ultimately medically managed with Lovenox [180 mg, 1 mg/kg dose BID] with Warfarin bridge as enumeratied below. PLEASE NOTE THE PATIENT WAS ONLY PROVIDED WITH 2 WEEKS WORTH OF LOVENOX DUE TO INSURANCE RESTRICTIONS -- HE WILL NEED A REFILL PRIOR TO THE END OF TWO WEEKS IF HIS LOVENOX BRIDGE IS INCOMPLETE [ ] The patient will follow up with Dr. Wagner Hawkins of [facility] Cardiology in 1 month with a transthoracic echocardiogram prior to his visit. [ ] Please note that Mr. Handley's home chlorthalidone and atenolol were held on discharge to the hospital. Please evaluate Mr. Handley for resumption of these medications. He was also discharged with 3 months of home oxygen. Please evaluate for continued need of oxygen. Discharge Diagnoses (Hospital Problems) and Secondary Diagnoses (Chronic Problems): Active Hospital Problems Diagnosis ??? Pulmonary embolism Resolved Hospital Problems No resolved problems to display. Procedures/Cardiac Studies: 1. TTE, 08/23/2019: 1. Technically limited study. 2. The [...] is 55 mmHg. + right atrial pressure. ?? 4. The left atrium is normal in size. ??The right atrium is mildly dilated. 5. There is no hemodynamically significant valve disease. 6. See remainder of report for additional findings. ?? Chambers 2D ?Value ?Units (Range) ? IVSd (2D) ?1.36 ?cm ? LVPWd (2D) ?1.36 ?cm ? IVS:LVPW ratio (2D) 1 ?ratio ? RWT (2D) ?0.57 ?ratio ? RWT PW (2D) ?0.57 ?ratio ? LVIDd (2D) ?4.77 ?cm ? LVIDs (2D) ?3.42 ?cm ? LVIDd (2D) index ?1.69 ?cm/m2 ? LVIDs (2D) index ?1.21 ?cm/m2 ? LV FS (2D) ?28.3 ?% ? EF Teichholz (2D) ?54.59 ?% ? Ao root diameter (2D3.4 ?cm (2.1 - 3.6) ? Ascending Ao ?3.5 ?cm (2 - 3.5) ? Volumes/Mass ?Value ?Units (Range) ? LA Area 4 CH ?22 ?cm2 (<21) ? RA AREA 4CH ?24 ?cm2 ? LA ESV BP (MOD) inde18.7 ?ml/m2 ? LV ESV SP 4CH (MOD) 53.7 ?ml ? LV ESV SP 2CH (MOD) 55.3 ?ml ? LV EDV BP ?123 ?ml ? LV ESV BP ?54 ?ml ? LV EDV BP index ?43.65 ?ml/m2 ? LV ESV BP index ?19.16 ?ml/m2 ? BP EF (MOD) ?56.1 ?% ? LV mass (2D) ?259.9 ?g ? LV mass (2D) index ??92.23 ?g/m2 ? Diastolic/Systolic Function ?Value ?Units (Range) ? MV E-wave Vmax ?0.59 ?m/sec ? MV deceleration [id number] ?msec ? MV A-wave Vmax ?0.7 ?m/sec ? MV E:A ratio ?0.84 ?ratio ? LV septal e' Vmax ?0.04 ?m/sec ? LV lateral e' Vmax ??0.1 ?m/sec ? LV average e' Vmax ??0.07 ?m/sec ? LV E:e' septal ratio14.75 ?ratio ? LV E:e' lateral rati5.9 ?ratio ? LV average E:e' rati8.43 ?ratio ? Tricuspid Valve ?Value ?Units (Range) ? TR Vmax ?3.69 ?m/sec ? TR peak gradient ?54.46 ?mmHg ? RVSP ?55 ?mmHg ? Wall Motion: Segment Name ?Rest ? Base-Anteroseptal ?Normal ? Base-Anterior ?Normal ? Base-Anterolateral ??Normal ? Base-Posterolateral Normal ? Base-Inferior ?Normal ? Base-Inferoseptal ?Normal ? Mid-Anteroseptal ?Normal ? Mid-Anterior ?Normal ? Mid-Anterolateral ?Normal ? Mid-Posterolateral ??Normal ? Mid-Inferior ?Normal ? Mid-Inferoseptal ?Normal ? [place]-Septal ?Normal ? [place]-Anterior ?Normal ? [place]-Lateral ?Normal ? [place]-Inferior ?Normal ? [place]-Tip ?Normal ? History of Presentation: 53 y/o obese, HTN, history of KENTRELL presenting with SOB starting 3 days prior. He initially noted a dry cough, and has had progressively worse dyspnea on exertion without chest pain over the past 3 days.He also reports chills (did not take his temperature). On the morning of admission, he developed severe shortness of breath and weakness while walking to the bathroom, which prompted him to go to [facility]. ?? At [facility], patient had O2 sats in 70s on RA, that ultimately improved with BiPAP. Patient otherwise hemodynamically stable and afebrile. EKG notable for TWI in V1-V4 and troponin tuan from 0.23->0.33.Subsequent CT PE revealed bilateral PE with questionable infarct of pulmonary vascular bed. He recevieed lovenox 1mg/kg dosing and was transferred to [facility] for further management Hospital Course: # Bilateral Pulmonary Artery Embolism [PESI Score: 102, sPESI: 2] # PE with RV Strain, Medically Managed, with acute cor pulmonale # Acute Hypoxic Respiratory Failure 2/2 Acute Pulmonary Embolism # PE 2/2 LLE DVT, Unprovoked On admission Mr. Handley was started on weight-based lovenox dosing for anticoagulation. An echocardiogram showed normal LV size but mild concentric LV hypdertrophy as well as moderate reduction in RVsystolic function. Septal motion was noted to be consistent with volume overload. The patient was initially put on BiPAP with improvement in his oxygen saturations. In discussions with the PERT team, the decision was made not to pursue catheter-directed lytics. Mr. Handley was weaned off of BiPAP by the morning of HD#2, and was transferred to the floor. He was subsequently started on coumadin with lovenox remaining as a bridge until INRs reached a therapeutic level. A baseline DVT duplex performed o n HD#3 showed a small nonocclusive thrombus in the left calf in one of the paired popliteal veins. Mr. Garcia worked with PT and was able to ambulate without supplemental oxygen. He was discharged to home with prescriptions for a lovenox bridge and warfarin anticoagulation as well as 3L O2 for home use. ?? # Hx HTN Mr. Handley's home antihypertensives of atenolol, chlorthalidone, and losartan were held on admission. His losartan was restarted on HD #3 prior to discharge. His home atenolol and chlorthalidone werecontinued to be held on discharge. # Hx KENTRELL Mr. Handley's home CPAP was resumed on HD#1 after he was weaned off of BiPAP. Important Studies and Lab Data: Admission Labs: Results for ESTEBAN HANDLEY ( ) as of 08/25/2019 12:04 08/22/2019 17:32 08/22/2019 18:35 WBC 18.8 (H) RBC 5.23 Hemoglobin 16.2 Hematocrit 46.6 MCV 89.1 MCH 31.0 MCHC 34.8 RDWSD 43.3 RDWCV 13.5 Platelets 244 MPV 10.8 nRBC % Auto 0.0 nRBC Abs Auto 0.000 Neutr Abs (ANC) 14.65 (H) Neutrophils % 77.9 Immature Gran % 0.70 Lymphocytes % 14.5 Monocytes % 6.5 Eosinophils % 0.2 Basophils % 0.2 Angelia Gran Abs 0.13 (H) Lymphocytes Abs 2.7 Monocyte Abs 1.2 (H) Eosinophils Abs 0.0 Basophils Abs 0.0 Sodium 139 Potassium 4.0 Chloride 105 CO2 19 (L) Anion Gap 15 BUN 19 Creatinine 0.97 eGFR 89 eGFR 104 Calcium 9.2 Glucose Lvl 147 Troponin-T 0.03 (H) ProBNP 4,328 (H) Total Protein 7.9 Albumin 3.7 Total Bilirubin 0.8 Bili, Direct 0.2 Alk Phos 66 AST 49 (H) ALT 63 (H) Rapid SARS-CoV-2 RNA Not Detected SARS-CoV-2 Source SHIRT CLOSER Swab Discharge Labs: Recent Labs 08/25/19 0556 08/24/19 0340 08/23/19 03408/22/19 1835 WBC 10.9* 12.5* 14.5* 18.8* HGB 13.0* 13.8 14.3 16.2 PLATELET 200 205 207 244 Recent Labs 08/25/19 0556 08/24/19 0340 08/23/19 0340 08/22/19 1835 NA 139 142 142 139 K 3.6 3.7 3.7 4.0 CL 105 107 106 105 CO2 22 22 23 19* BUN 16 23* 23* 19 CREATININE 0.88 1.01 0.98 0.97 GLUCOSE -- -- -- 147 Recent Labs 08/25/19 0556 08/24/19 0340 08/23/19 0340 CALCIUM 8.9 9.1 9.2 MAGNESIUM 0.88 0.91 0.86 Recent Labs 08/22/19 1835 TROPONINT 0.03* Recent Labs 08/22/19 1835 AST 49* ALT 63* ALKPHOS 66 BILITOT 0.8 BILIDIR 0.2 Recent Labs 08/25/19 0556 08/24/19 1345 INR 1.2 1.2 Lab Results Component Value Date CHLPL 145 08/23/2019 HDL 24 08/23/2019 CHOLHDL 6.0 08/23/2019 TRIG 142 08/23/2019 LDLDIRECT 106 08/23/2019 Recent Labs 08/23/19 0340 HA1C 5.8* Studies: CT chest done at [facility]SH TTE 08/22/2019 Procedure: Transthoracic Echocardiogram Patient: BENJAMIN RODRIGUEZ(Age): 1965(53y) Med Rec#: [id number] Sex: M Site Loc: [facility] Ht / Wt: 180(cm)/180(kg) Pt. Loc: CCU BSA: 2.82 Study Date: 08/23/2019 Pt. Type: Inpatient Tape: ?? Referring: HUNTER PAZ J Reading: Tomas Coyne ([id number]) Clinical Staff Educator: Jayy Singletary [facility] ?? Diagnosis: *Complication of other artery following a procedure, not elsewhere classified, initial encounter (T82.115H) *Other pulmonary embolism without acute cor pulmonale (I26.99) ?? BP: 124/56 ?? SUMMARY: ?? 1. Technically limited study. 2. The left [...] is 55 mmHg. + right atrial pressure. ?? 4. The left atrium is normal in size. The right atrium is mildly dilated. 5. There is no hemodynamically significant valve disease. 6. See remainder of report for additional findings. ? Findings : ?? Study Quality: Technically limited ?? Left Ventricle: The left ventricular chamber size is normal. Mild concentric left ventricular hypertrophy is observed. There is no evidence of LVOT obstruction. No ventricular septal defect is visualized. Global left ventricular wall motion and contractility are probably within normal limits. There is normal global left ventricular systolic function. The quantitative left ventricular ejection fraction by biplane Pradhan's method is 56%. Assessment of diastolic function is indeterminate. The left ventricular diastolic filling pattern is consistent with impaired LV relaxation. Left sided filling pressure could not be assessed by Doppler. ?? Left Atrium: The left atrium is normal in size. ?? Right Ventricle: The right ventricle is moderately dilated. Right ventricular global systolic function is moderately reduced. The free wall of the right ventricle appears hypokinetic. Septal motion is consistent with RV pressure overload. There is evidence of moderate pulmonary hypertension. The estimated pulmonary artery systolic pressure is 55 mmHg.+ right atrial pressure. ?? Right Atrium: The right atrium is mildly dilated. ?? Aortic Valve: The aortic valve is not well visualized. The aortic valve is probably tricuspid. Systolic excursion of the aortic valve is normal. There is no evidence of aortic valve stenosis. There is no evidence of aortic regurgitation. ?? Mitral Valve: The mitral valve appears normal in structure and function. There is trace mitral regurgitation present. ?? Tricuspid Valve: The tricuspid valve appears normal in structure and function. There is mild (1+/4+) tricuspid regurgitation present.contrast-enhanced. ?? Pulmonic Valve: The pulmonic valve appears normal in structure and function. There is trace pulmonic regurgitation present. ?? Pericardium: The pericardium appears normal and there is no evidence of a pericardial effusion. ?? Aorta: The aortic root is normal in size. The ascending aorta is normal in size. ?? Pulmonary Artery: The main pulmonary artery appears normal. ?? Venous: The inferior vena cava is poorly visualized. ?? Misc: There is no hemodynamically significant valve disease. See remainder of report for additional findings. Two-dimensional echo, spectral Doppler and color Doppler performed. ?? Definity contrast (one 1.5 ml vial)was used to enhance endocardial definition. Excess contrast was discarded. ?? Chambers 2D Value Units (Range) IVSd (2D) 1.36 cm LVPWd (2D) 1.36 cm IVS:LVPW ratio (2D) 1 ratio RWT (2D) 0.57 ratio RWT PW (2D) 0.57 ratio LVIDd (2D) 4.77 cm LVIDs (2D) 3.42 cm LVIDd (2D) index 1.69 cm/m2 LVIDs (2D) index 1.21 cm/m2 LV FS (2D) 28.3 % EF Teichholz (2D) 54.59 % Ao root diameter (2D3.4 cm (2.1 - 3.6) Ascending Ao 3.5 cm (2 - 3.5) ?? Volumes/Mass Value Units (Range) LA Area 4 CH 22 cm2 (<21) RA AREA 4CH 24 cm2 LA ESV BP (MOD) inde18.7 ml/m2 LV ESV SP 4CH (MOD) 53.7 ml LV ESV SP 2CH (MOD) 55.3 ml LV EDV BP 123 ml LV ESV BP 54 ml LV EDV BP index 43.65 ml/m2 LV ESV BP index 19.16 ml/m2 BP EF (MOD) 56.1 % LV mass (2D) 259.9 g LV mass (2D) index 92.23 g/m2 ?? Diastolic/Systolic Function Value Units (Range) MV E-wave Vmax 0.59 m/sec MV deceleration [id number] msec MV A-wave Vmax 0.7 m/sec MV E:A ratio 0.84 ratio LV septal e' Vmax 0.04 m/sec LV lateral e' Vmax 0.1 m/sec LV average e' Vmax 0.07 m/sec LV E:e' septal ratio14.75 ratio LV E:e' lateral rati5.9 ratio LV average E:e' rati8.43 ratio ?? Tricuspid Valve Value Units (Range) TR Vmax 3.69 m/sec TR peak gradient 54.46 mmHg RVSP 55 mmHg ? Wall Motion: ?? Segment Name Rest ?? Base-Anteroseptal Normal Base-Anterior Normal Base-Anterolateral Normal Base-Posterolateral Normal Base-Inferior Normal Base-Inferoseptal Normal Mid-Anteroseptal Normal Mid-Anterior Normal Mid-Anterolateral Normal Mid-Posterolateral Normal Mid-Inferior Normal Mid-Inferoseptal Normal [place]-Septal Normal [place]-Anterior Normal [place]-Lateral Normal [place]-Inferior Normal [place]-Tip Normal ?? This report has been electronically signed by: ?? Tomas Coyne MD 08/23/2019 12:42:23 Images reviewed and interpretation verified [facility] Cardiac Ultrasound Laboratory Bilateral LE DVT Duplex Scan 08/25/2019 Showed a small nonocclusive thrombus in the left calf in one of the paired popliteal veins. Pending Studies and Lab Data: None Discharge Conditions/Prognosis: Stable and appropriate to discharge Discharge to: Home on home oxygen Discharge Medications: Your Medications New Medications Dose Details * enoxaparin 100 mg/mL Syrg Commonly known as: LOVENOX Inject 1.8 mLs subcutaneously 2 times daily. 1 mg/kg/dose Quantity: 30 Syringe Refills: 0 * enoxaparin 100 mg/mL Syrg Commonly known as: LOVENOX Inject 1.8 mLs subcutaneously every 12 hours. From [facility] 180 mg Quantity: 14 Syringe Refills: 0 warfarin 5 mg Tab Commonly known as: Coumadin Take 1 tablet by mouth daily for 14 days. Take 10mg in evening of 08/24 and 08/25. Adjust dose accordingto instructions after 08/26 clinic visit 5 mg Quantity: 14 tablet Refills: 0 * This list has 2 medication(s) that are the same as other medications prescribed for you. Read thedirections carefully, and ask your doctor or other care provider to review them with you. Continued medications, unchanged Dose Details fluticasone propionate 50 mcg/actuation Spsn Commonly known as: FLONASE 1 spray by Each Nare route daily. 1 spray Refills: 0 losartan 25 mg Tab Commonly known as: Cozaar Take 50 mg by mouth every evening. Indications: high blood pressure 50 mg Refills: 0 montelukast 10 mg Tab Commonly known as: Singulair Take 10 mg by mouth daily. 10 mg Refills: 0 STOPPED Medications atenoloL 25 mg Tab Commonly known as: Tenormin chlorthalidone 25 mg Tab Commonly known as: Hygroten Updated Allergies/ADRs: No Known Allergies Future Appointments and Orders Future Orders Complete By Expires Echocardiogram Transthoracic([facility]) [61813 CPT(R)] 09/25/2019 03/26/2020 Process Instructions: Scheduling Instructions: Comments: To be done prior to Cardiology appointment with Dr. Hawkins. Questions: Is a Bubble Study requested?: No Does the patient have Congenital Heart Disease?: No Does patient require sedation?: None GA rationale: HOME OXYGEN [EQ184 Custom] As directed Process Instructions: Check with vendor to see if additional forms need to be completed. You must submit a copy of the following documents with this Order: 1 - Official results of Pulse Oximetry at Rest and with Exercise that are less than 180 days old 2 - Official results of Nocturnal testing (if performed) 3 - Signed and dated [id number] evaluation documenting the need for Oxygen Scheduling Instructions: Comments: NC during the day, 1-2L to be bled through CPAP at night. Questions: Vendor Name/Contact information: [employer] Rate (LPM): 3 Route: Nasal Hours per day of useage: 12 # months service is needed (99= lifetime): 3 Portable needed: Yes SPO2 performed on Room Air?: Yes Resting Date (Room Air): 08/25/2019 Resting SPO2% (Room Air): 89 Exercise Date (Room Air): 08/25/2019 Exercise SPO2% (Room Air): 85 SPO2 performed with Supplemental Oxygen?: Yes Resting Date (Supplemental Oxygen): 08/25/2019 Resting SPO2% (Supplemental Oxygen): 94 Resting Rate - LPM (Supplemental Oxygen): 3 Exercise Date (Supplemental Oxygen): 08/25/2019 Exercise SPO2% (Supplemental Oxygen): 91 Exercise Rate - LPM (Supplemental Oxygen): 3 Nocturnal testing performed?: Oxygen Conserving Device (OCD) needed?: Referral to Cardiology [REF12 Custom] As directed Process Instructions: If no progress note charted, please enter Clinical details in comments. Scheduling Instructions: Comments: For 09/25/2019, should have TTE prior. Questions: My question or request is: Post hospital follow up for PE General Instructions Warfarin (Coumadin??) Instructions for Home: ??? Reason for warfarin (Coumadin??) therapy: Pulmonary Embolism ??? Your NEW warfarin (Coumadin??) dosing instruction upon discharge is: (Follow this schedule belowuntil your first INR check after discharge (usually in 2- 4 days): ??? 08/25/19: Take warfarin 10 mg dose in the evening ??? 08/26/19: Take warfarin 10 mg dose in the evening ??? Sunday: 08/27/19: Get INR checked ??? Your next INR check is scheduled for 10:40 AM on Tuesday, August 27, 2019 at your primary care physician's office. Please wear a face mask to your appointment. ??? It is very important that you have your INR checked regularly as your dose may change based on your lab values. ??? INR goal range: 2.0-3.0 ??? Expected duration of treatment: 12 months ??? Provider responsible for ongoing outpatient warfarin management: ??? Claudio Alegre MD ??? [facility] ??? ALXE Ahmadi ? If you have not received a call from your provider within 24 hours of having your INR drawn, please call your outpatient provider for further dose instructions. ??? Warfarin (Coumadin??) should be taken at the same time every day, preferably after 5:00 pm. It is very important that you take your warfarin as instructed. ??? You will be taking enoxaparin (Lovenox??) injections, continue taking these until instructed to stop. (You will be taking this medication until your INR within your goal range for 24 hours.) ??? You received information on warfarin (Coumadin??) while you were in the hospital. It is important for you to remember the following (please see your warfarin (Coumadin??) packet for more information): ?? Your INR can be affected by your diet and other medications you take ?? It is important to maintain a diet with a consistent amount of ggsqhcm-x-vdeqicxvkt foods and avoid major changes in your diet ?? Do not start or stop taking any prescription medications, jzup-xod-lihucku medications, dietary supplements or herbal medications without asking your doctor or pharmacist ?? Tell your doctors, pharmacists and other healthcare providers that you take warfarin (Coumadin??) ?? Warfarin (Coumadin??) increases your risk of bleeding ??? If you experience any of these signs or symptoms of bleeding or blood clotting, please seek immediate medical attention: ?? increased pain, swelling or sudden shortness of breath ?? severe headache ?? dizziness ?? unusual bleeding or bruising ?? changes in urine or bowel movement color ?? coughing or spitting up of blood, or ?? nosebleeds that do not stop or occur more often The following table shows your most recent INR results and warfarin (Coumadin??) doses. Please bringthis to your first INR check appointment after discharge. Inpatient Warfarin Dose History: Date INR Dose Comments 08/24/19 1.2 5 mg Day 1 of warfarin, Lovenox 180 mg every 12 hrs started 08/2208/25/19 1.2 Instructions to take warfarin at home this evening END Warfarin (Coumadin??) Instructions for Home Patient Instructions Instruction after leaving the hospital Why you were hospitalized: you were hospitalized for pulmonary embolism, or clots in your lungs, forwhich we have started you on blood thinning medication. You were also found to have a small blood clot in your left calf. You will need to continue on blood thinning medications for at least 1 year. Call your doctor or seek medical attention if you develop the following: Call your doctor or seek medical attention if you experience any alarming symptoms. This may include, but is not limited to, fever, chest pain, severe shortness of breath, nausea with vomiting, persistent decrease in your urinaryoutput, severe pain, or any other concerning symptoms. Activity level: As tolerated. Diet: No new restrictions. Driving: Please do not drive if you feel lightheaded, dizzy, faint, or taking any opioids/narcotics (i.e oxycodone). It is advisable that you do not drive till you follow-up with your primary care physician. Shower/Bath: No new restrictions. Wound Care: Home Oxygen therapy: N/A Patient Instructions: Changes in Your Medications: New Medications: Medication dose changes: Stop these medications: Follow-Up Appointments No future appointments. Date and Time Provider and Specialty Location Need to be scheduled Becky Castillo MD , PCP [address] / [facility] [id number] Your Inpatient Doctor(s) at [facility]: MD Chepe Mendoza MD Navjot Kaur, MD Sinan Sayood, MD Your Primary Care Provider: Becky Castillo MD [address] / [facility] [id number] For questions regarding this document or issues relating to this hospitalization on the Medical Service, please contact your inpatient physician through the [facility] [facility] . Issues after hours and on weekends will be handled by the Hospitalist staff on-call. For questions regarding this document or issues relating to this hospitalization on the Medical Service, please contact your inpatient physician through the [facility] . Issues after hours and on weekends will be handled by the [facility] staff on-call. documented in this encounter Discharge Instructions Discharge InstructionsSanto Brar, [facility] - 08/25/2019 10:47 AM EDT Warfarin (Coumadin??) Instructions for Home: ??? Reason for warfarin (Coumadin??) therapy: Pulmonary Embolism ??? Your NEW warfarin (Coumadin??) dosing instruction upon discharge is: (Follow this schedule belowuntil your first INR check after discharge (usually in 2- 4 days): ??? 08/25/19: Take warfarin 10 mg dose in the evening ??? 08/26/19: Take warfarin 10 mg dose in the evening ??? Sunday: 08/27/19: Get INR checked ??? Your next INR check is scheduled for 10:40 AM on Tuesday, August 27, 2019 at your primary care physician's office. Please wear a face mask to your appointment. ??? It is very important that you have your INR checked regularly as your dose may change based on your lab values. ??? INR goal range: 2.0-3.0 ??? Expected duration of treatment: 12 months ??? Provider responsible for ongoing outpatient warfarin management: ??? Claudio Alegre MD ??? [facility] ??? ALEX Ahmadi ? If you have not received a call from your provider within 24 hours of having your INR drawn, please call your outpatient provider for further dose instructions. ??? Warfarin (Coumadin??) should be taken at the same time every day, preferably after 5:00 pm. It is very important that you take your warfarin as instructed. ??? You will be taking enoxaparin (Lovenox??) injections, continue taking these until instructed to stop. (You will be taking this medication until your INR within your goal range for 24 hours.) ??? You received information on warfarin (Coumadin??) while you were in the hospital. It is important for you to remember the following (please see your warfarin (Coumadin??) packet for more information): ?? Your INR can be affected by your diet and other medications you take ?? It is important to maintain a diet with a consistent amount of gegzmrp-j-bmbxygnrec foods and avoid major changes in your diet ?? Do not start or stop taking any prescription medications, eqie-mfr-dxragqk medications, dietary supplements or herbal medications without asking your doctor or pharmacist ?? Tell your doctors, pharmacists and other healthcare providers that you take warfarin (Coumadin??) ?? Warfarin (Coumadin??) increases your risk of bleeding ??? If you experience any of these signs or symptoms of bleeding or blood clotting, please seek immediate medical attention: ?? increased pain, swelling or sudden shortness of breath ?? severe headache ?? dizziness ?? unusual bleeding or bruising ?? changes in urine or bowel movement color ?? coughing or spitting up of blood, or ?? nosebleeds that do not stop or occur more often The following table shows your most recent INR results and warfarin (Coumadin??) doses. Please bringthis to your first INR check appointment after discharge. Inpatient Warfarin Dose History: Date INR Dose Comments 08/24/19 1.2 5 mg Day 1 of warfarin, Lovenox 180 mg every 12 hrs started 08/2208/25/19 1.2 Instructions to take warfarin at home this evening END Warfarin (Coumadin??) Instructions for Home Patient InstructionsEpifanio Hassan MD - 08/25/2019 12:15 PM EDT Instruction after leaving the hospital Why you were hospitalized: you were hospitalized for pulmonary embolism, or clots in your lungs, forwhich we have started you on blood thinning medication. You were also found to have a small blood clot in your left calf. You will need to continue on blood thinning medications for at least 1 year. Call your doctor or seek medical attention if you develop the following: Call your doctor or seek medical attention if you experience any alarming symptoms. This may include, but is not limited to, fever, chest pain, severe shortness of breath, nausea with vomiting, persistent decrease in your urinaryoutput, severe pain, or any other concerning symptoms. Activity level: As tolerated. Diet: No new restrictions. Driving: Please do not drive if you feel lightheaded, dizzy, faint, or taking any opioids/narcotics (i.e oxycodone). It is advisable that you do not drive till you follow-up with your primary care physician. Shower/Bath: No new restrictions. Wound Care: Home Oxygen therapy: N/A Patient Instructions: Changes in Your Medications: New Medications: Medication dose changes: Stop these medications: Follow-Up Appointments No future appointments. Date and Time Provider and Specialty Location Need to be scheduled Becky Castillo MD , PCP [address] / [facility] [id number] Your Inpatient Doctor(s) at [facility]: MD Chepe Mendoza MD Navjot Kaur, MD Sinan Sayood, MD Your Primary Care Provider: Becky Castillo MD [address] / [facility] [id number] For questions regarding this document or issues relating to this hospitalization on the Medical Service, please contact your inpatient physician through the [facility] . Issues after hours and on weekends will be handled by the Hospitalist staff on-call. AttachmentsThe following attachments cannot be sent through Care Everywhere. Elevated INR (Emirati)Warfarin Safety Tips (Emirati)Vitamin K Diet (Emirati)DVT (Deep Vein Thrombosis): Prevention: General Info (Emirati)Pulmonary Embolism (Emirati)documented in this encounter Medications at Time of Discharge Medication Sig Dispensed Refills Start Date End Date fluticasone 1 spray by Each Nare 0 propionate (FLONASE) route daily. 50 mcg/actuation [place], Suspension montelukast Take 10 mg by mouth 0 (Singulair) 10 mg daily. Tablet atenoloL-chlorthalido TAKE 1 TABLET BY MOUTH 0 10/12/2020 ne (TENORETIC) 100-25 AT BEDTIME mg Tablet enoxaparin (LOVENOX) Inject 1.8 mLs 30 Syringe 0 08/25/2019 09/01/2019 100 mg/mL Syringe subcutaneously 2 times daily. losartan (Cozaar) 25 Take 50 mg by mouth 0 10/12/2020 mg TabletIndications: every evening. hypertension Indications: high blood pressure enoxaparin (LOVENOX) Inject 1.8 mLs 14 Syringe 0 08/25/2019 09/01/2019 100 mg/mL Syringe subcutaneously every 12 hours. From [facility] warfarin (Coumadin) 5 Take 1 tablet by mouth 14 tablet 0 09/01/2019 mg Tablet daily for 14 days. Take 10mg in evening of 08/24 and 08/25. Adjust dose according to instructions after 08/26 clinic visit documented as of this encounter Progress Notes Lena Denton RN - 08/25/2019 4:46 PM EDT Office of Care Management Initial Assessment Lena Denton RN discussed discharge plan with Care Team and patient. Esteban Handley is medically ready for discharge Home O2 is provided through:[facility] Int[facility] office: tel: [phone] [place], [place] Office Pt will transport to home by car with significant other. Home services not required at this time. Prescription molded goods spot picker reviewed w/Patient and SO will molded goods spot picker medications before picking up patient at: [facility] in [facility] [place], [place] - [facility] [address] [facility] [address] [id number] - [place], [place] - [address] [place] [address] [address] [facility] [address] [facility] [address] Lena Denton RN - 08/25/2019 12:28 PM EDT The patient Esteban Handley has been provided a list of Home Health Agencies/DME vendors which serve their preferred geographic area. A letter describing our affiliations was reviewed with them and theywere educated about their right to choose where referrals are placed. Patient requests referral to: [facility] office: tel: [phone] [place], [place] Office Expected date of discharge: 08/25/19 Referral routed to the [employer] for matching with agency/vendor and to provide any required information. Epifanio Hassan MD - 08/25/2019 12:13 PM EDT Certification of Medical Necessity Form for Home Oxygen Esteban Handley is requiring HOME OXYGEN due to the diagnosis of hypoxia due to: Oxygen is required when mobile (X ) and/or at night (X ). Oxygen saturations documented Activity on Room Air: 85% Activity on O2 at 3L liters: 91 % (Please document below the Activity Saturations if Resting saturations are >88% ) Resting on Room Air: 89% Resting on 3Lliters of O2: 94% O2 Sats collected by: Naomi Wiggins, PT Date Sats Collected: 08/25/19 Mobility: Patient is mobile and Requiring portable oxygen Rate: 3L Route: SC Vendor Ordered: [facility] I anticipate that Esteban Handley will be discharged within 2 days. Potential DC 08/25/19 Lena Denton RN - 08/25/2019 9:39 AM EDT Office of Care Management Initial Assessment Lena Denton, RN reviewed record and discussed patient with Care Team. Source of Information: [facility] Cardiology S2 Team, chart review, and interviewing patient. Introduced self/reviewed role; services accepted. Reason for Hospitalization: Reason for Admission as Stated by Patient: i was having trouble breathing because I have clots in my lungs <principal problem not specified> Per H&P note by Wagner Hawkins : 53 y/o obese, HTN, history of KENTRELL presenting with SOB starting 3 days prior. He initially noted a dry cough, and has had progressively worse dyspnea on exertion without chest pain over the past 3 days. He also reports chills (did not take his temperature). On themorning of admission, he developed severe shortness of breath and weakness while walking to the bathroom, which prompted him to go to [facility]. ?? At [facility], patient had O2 sats in 70s on RA, that ultimately improved with BiPAP. Patient otherwise hemodynamically stable and afebrile. EKG notable for TWI in V1-V4 and troponin tuan from 0.23->0.33.Subsequent CT PE revealed bilateral PE with questionable infarct of pulmonary vascular bed. He recevieed lovenox 1mg/kg dosing and was transferred to [facility] for further management. No past medical history on file. Hospitalizations Within the Past 30 Days: No [facility] admits in last 30 days. Anticipated Length Of Stay (If known): DC Today Current Decision-Making Capacity: Patient is A&Ox4 Advance Care Planning: Full Code No AD in [facility]. Pt stated that the AD is at PCP's office. Will ask SW to attain. Pt stated that primary DPOAH is friend : Yusuf Menjivar [phone]. Current Coping/Education/Information Needs: Current coping questions and concerns have been addressed. Pt feels that he understands the plan of care and is getting his questions answered as needed. Current Functional Ability: SBA . OT/PT consults ordered Functional Status Prior to Admission: Fully functional w/ADL's Works F/T as [employer] in [employer] and [employer] Home Environment: Multilevel home w/5 stair entry w/railing and 12 stairs w/railing to second floor bedrooms [address] [place] [id number] Social & Family Supports/Community Resources: Lives w/significant other and car Extended Emergency Contact Information Primary Emergency Contact: Yusuf Menjivar Mobile Relation: Friend Behavioral Health History: none identified Substance Use/Abuse: not discussed Health/Prescription Coverage: Primary Insurance: CIGNA Secondary Insurance: N/A Prescription Coverage: cigna Preferred Pharmacy: [facility] [id number] Other: none Primary Care Provider: Becky Castillo MD [phone] Patient/Caregiver Goals of Treatment: return to previous level of function and breathing freely. Potential Needs for Transition of Care: Discussed with patient and family levels of rehab including SNF, swing, acute and VNA home health care also discussed. Discussed need to accept first bed available when patient is medically ready. Rehab/SNF: TBD Home Health: none needed DME: none Dialysis: NA Community Resources: none Transportation: SO w/car Other: none Anticipated Barriers to Discharge/Special Considerations: none vs anticipated barriers to arise as hospitalization continues. Assessment: patient is admitted to cardiology S2 service 53 y/o obese with SOB starting 3 days prior. Pt is fully functional w/ADL's and works F/T as [employer] in [employer] and [employer]. He lives w/SO and cat in a multilevel home w/5 stair entry w/railing and 12 stairs w/railing to second floor bedrooms. Pt will be going home w/O2 through [facility], the same provider he uses for [facility]. Plan: A member of the Care Management team will continue to monitor progress, follow for continuity of care and assist with transition of care planning. Lena Denton RN Case Manager Pager [phone] Ph: [phone] Ph: [phone] Wagner Hawkins MD - 08/25/2019 6:45 AM EDT Inpatient Medicine Progress Note Hospital Day 3 days Active Hospital Problems Diagnosis ??? Pulmonary embolism Resolved Hospital Problems No resolved problems to display. ID: 53 y/o obese, HTN, history of KENTRELL presents with submassive pulmonary embolism 24 Hour Events: - No acute events overnight ROS: Denies fevers/chills, chest pain, shortness of breath, diarrhea/vomiting/abdominal pain/constipation, muscle aches or weakness. Inpatient Medications: Scheduled Meds: ??? warfarin (COUMADIN) daily order reminder Oral Q24H ??? enoxaparin 1 mg/kg/dose Subcutaneous 2 times per day ??? sodium chloride 0.9 % (flush) 5 mL Intravenous BID ??? sodium chloride 0.9 % (flush) 5 mL Intravenous BID Continuous Infusions: PRN Meds: sodium chloride 0.9 % (flush), lidocaine, nitroGLYcerin, sodium chloride 0.9 % (flush), lidocaine Vitals: Last value Range last 24 hrs Temperature Temp: 37.2 ??C (99 ??F) Temp: [36.7 ??C (98.1 ??F)-37.4 ??C (99.3 ??F)] Heart Rate Heart Rate: 79 Heart Rate: [65-87] Blood Pressure BP: 114/67 BP: (114-148)/(63-92) Respiratory Rate Resp: 22 Resp: [15-26] SpO2 SpO2: 96 % SpO2: [91 %-96 %] Ins/Outs: Intake/Output Summary (Last 24 hours) at 08/25/2019 0645 Last data filed at 08/25/2019 0400 Gross per 24 hour Intake 1850 ml Output 1150 ml Net 700 ml Physical Exam: General: Pleasant, breathing comfortably on 2L O2 HEENT: limited on BiPAP, grossly normal Chest: Symmetric chest wall expansion upon inspiration; no kyphoscoliosis Card: Normal rate, regular rhythm; normal S1/S2, no S3; no murmurs or rubs appreciated Lungs: Breathing non-labored on BiPAP. Clear to auscultation Abdomen: Non-distended, normal bowel sounds; soft, non-tender; no masses or hepatosplenomegaly; no rebound, guarding or peritoneal signs Extremities: Warm, well perfused. No cyanosis, clubbing, or edema. 2+ peripheral pulses present in all four extremities Neurologic: Alert, oriented, cooperative; no focal deficits grossly. Skin: Warm, dry. Normal turgor. No rashes, lesions, petechia or purpura Laboratory: Summary: CBC: Downtrending WBC, Hb gently trending down BMP: Steady across the board, K 3.6 Mg 0.88 CBC: Recent Labs 08/25/19 0556 08/24/19 0340 08/23/19 0340 WBC 10.9* 12.5* 14.5* HGB 13.0* 13.8 14.3 PLATELET 200 205 207 Chemistry: Recent Labs 08/25/19 0556 08/24/19 0340 08/23/19 0340 08/22/19 1835 NA 139 142 142 139 K 3.6 3.7 3.7 4.0 CL 105 107 106 105 CO2 22 22 23 19* BUN 16 23* 23* 19 CREATININE 0.88 1.01 0.98 0.97 GLUCOSE -- -- -- 147 Recent Labs 08/25/19 0556 08/24/19 0340 08/23/19 0340 CALCIUM 8.9 9.1 9.2 MAGNESIUM 0.88 0.91 0.86 LFT's: Recent Labs 08/22/19 1835 BILITOT 0.8 BILIDIR 0.2 ALBUMIN 3.7 ALKPHOS 66 ALT 63* AST 49* Coags: Recent Labs 08/25/19 0556 08/24/19 1345 PT 14.3* 13.9* INR 1.2 1.2 Cardiac enzymes: Recent Labs 08/22/19 1835 TROPONINT 0.03* PROBNP 4,328* Endocrine: No results for input(s): TSH, CORTISOL in the last 7068 hours. Invalid input(s): [id number] Heme: No results for input(s): LDH, HAPTOGLOBIN, URICACID in the last 168 hours. Microbiology: None Diagnostic Studies: CTA with bilateral PE and sings of right heart strain on 08/22/2019 TTE 08/23/2019 SUMMARY: ?? 1. Technically limited study. 2. The left [...] See remainder of report for additional findings. Assessment and Plan: 53 year old male with PMH of htn and KENTRELL presents with bilateral PE. The decision was made to treat his pulmonary emboli medically with enoxaparin. Overnight had no acute events. Oxygen requirements are down and he is maintained well on nasal cannula while awake and CPAP at night. Will plan for DVT duplex today and for work with PT/OT to determine if he has a home O2 requirements. He will need followup with Dr. Hawkins in 4 weeks with an echocardiogram beforehand. PESI score- 102 sPESI- 2 ?? Plan ?? # Bilateral main PA PE's - Discharge home on lovenox - Echo showing right heart strain - DVT duplex today - Started on coumadin, appreciate pharmacy help with management - Monitor O2 requirements ?? # Hx HTN - Restart home losartan, continue to hold atenolol and chlorthalidone. # Hx KENTRELL - Resumed CPAP ?? # Housekeeping DVT: therapeutic lovenox, continue warfarin titration per pharmacy instructions Diet: Daily Healthy Menu Choices/Cardiac diet ([facility]-Diet) Vegetarian Code: Full code Dispo: Plan for discharge today Epifanio Hassan MD PGY1, Internal Medicine Team Pager [phone] 08/25/2019 CARDIOLOGY ATTENDING NOTE Patient: Esteban Handley Date of Service: 08/25/2019 Date of Admission: 08/22/2019 Length of Stay Hospital Day 3 days Please see the above note by??Dr. Hassan??for details. I have interviewed and examined the patient independently and I concur with the assessment and plan. The case was discussed on cardiology rounds and we reviewed the plan of care with the team and patient. ??In addition, I certify that I am a D-H credentialed attending provider with admitting privileges and that the patient meets or has met medical necessity to require an inpatient IPI level of care meeting a minimum of two midnights or [facility] (status C) due to: acute respiratory compromise and/or hypoxia requiring assessment every 4 hours and the ability to respond immediately to the patient's needs. ?? Mr. Handley is a 53 year old man with history of hypertension, obesity, KENTRELL on CPAP who presented to [facility] with several day history of shortness of breath and dry cough, found to be hypoxic, and consequent work up with bilateral PE with RV strain. He was placed on BiPAP with improvement in oxygen saturations. He was started on AC with lovenox 1 mg/kg BID. Transferred to [facility] for consideration of advanced therapies - troponin 0.03, proBNP 4300. COVID-19 negative. He has remained hemodynamically stable, weaned off BiPAP to SC. TTE with moderately dilated RV with moderately reduced RV function, PASP 55 mm Hg + RAP. DVT duplex pending. Given improvement in symptoms and hemodynamic stability, no role for advanced therapies. We have initiated Coumadin (given weight >140 kg) with Lovenox bridge. Continue to wean oxygen, ambulate to see whether he requires home-going oxygen. This is unprovoked VTE (risk factors of obesity and relative immobility in setting of pandemic). Will need AC with Coumadin at least for first ~12 months given weight ~180 kgs. I will see him in follow-up in 4 weeks with echo prior to visit. ?? Rest per Dr. Hassan. Wagner Hawkins MD, MPH Cardiovascular Medicine Shaun Nath MD - 08/24/2019 9:32 AM EDT STAFF PROGRESS NOTE Critical Care Medicine Author: SHAUN NATH MD Patient seen and examined on critical care rounds. Esteban Handley is a 53 y.o. male with the following active issues:: Active Hospital Problems Diagnosis ??? Pulmonary embolism Resolved Hospital Problems No resolved problems to display. ASSESSMENT, MANAGEMENT, and DECISION MAKING: Critically ill with obesity, RV dilation, and PEs, currently on BiPAP support. He r/o for covid on admission. He has been hemodynamically stable overnight. Echo shows pHTN that is severe and pressure overload of the RV. -trial off BiPAP, tolerating NC -02 at this time without difficulty, -lovenox at therapeutic dosing; lovenox level today. -follow up echo today for further assessment of RV -oliguria has improved. -nutrition is improved. EXAM: Physical Exam On BiPAP this am before rounds Now on nasal cannula for rounds. He has no distress. Chest clear Cor distant abd non tender, rotund Ext warm Last value Range last 24 hrs Temperature Temp: 36.7 ??C (98.1 ??F) Temp: [36.7 ??C (98.1 ??F)-37.6 ??C (99.7 ??F)] Heart Rate Heart Rate: 65 Heart Rate: [65-86] Blood Pressure BP: 136/83 BP: (112-138)/(56-84) Respiratory Rate Resp: 22 Resp: [14-25] SpO2 SpO2: 94 % SpO2: [93 %-97 %] Art BP BP (Arterial Line): -- Last Ht 08/22/19 180.3 cm (5' 11) Last Wt 08/24/19 (!) 179.9 kg (396 lb 9.7 oz) Body mass index is 55.32 kg/m??. IS PATIENT CRITICALLY ILL ? Is there a high potential of sudden, clinically significant, or life threatening deterioration? Yes Is there a need for direct personal assessment and management to treat/prevent multiple vital organfailure/deterioration? Yes PATIENT IS CRITICALLY ILL WITH THESE DIAGNOSES BEING MANAGED BY [facility] TEAM: Other PE with RV dilation. I personally performed .. of aggregate critical care time exclusive of procedures and teaching. Thisincludes time spent during direct patient evaluation and reassessment, interpreting diagnostic tests, directing life and/or organ supporting interventions and documentation on the unit. SHAUN NATH MD 08/24/2019 Wagner Jackson MD - 08/24/2019 6:21 AM EDT Inpatient Medicine Progress Note Hospital Day 2 days Active Hospital Problems Diagnosis ??? Pulmonary embolism Resolved Hospital Problems No resolved problems to display. ID: 53 y/o obese, HTN, history of KENTRELL presents with submassive pulmonary embolism 24 Hour Events: - No acute events overnight, maintained on CPAP ROS: Denies fevers/chills, chest pain, shortness of breath, diarrhea/vomiting/abdominal pain/constipation, muscle aches or weakness. Inpatient Medications: Scheduled Meds: ??? enoxaparin 1 mg/kg/dose Subcutaneous 2 times per day ??? sodium chloride 0.9 % (flush) 5 mL Intravenous BID ??? sodium chloride 0.9 % (flush) 5 mL Intravenous BID Continuous Infusions: PRN Meds: sodium chloride 0.9 % (flush), lidocaine, nitroGLYcerin, sodium chloride 0.9 % (flush), lidocaine Vitals: Last value Range last 24 hrs Temperature Temp: 36.7 ??C (98.1 ??F) Temp: [36.7 ??C (98.1 ??F)-37.6 ??C (99.7 ??F)] Heart Rate Heart Rate: 65 Heart Rate: [62-86] Blood Pressure BP: 136/83 BP: (108-138)/(56-84) Respiratory Rate Resp: 22 Resp: [14-29] SpO2 SpO2: 94 % SpO2: [93 %-97 %] 1-2L Ins/Outs: Intake/Output Summary (Last 24 hours) at 08/24/2019 0621 Last data filed at 08/24/2019 0600 Gross per 24 hour Intake 990 ml Output 975 ml Net 15 ml Physical Exam: General: Pleasant, breathing comfortably on BiPAP, obese HEENT: limited on BiPAP, grossly normal Chest: Symmetric chest wall expansion upon inspiration; no kyphoscoliosis Cor: Normal rate, regular rhythm; normal S1/S2, no S3; no murmurs or rubs appreciated Lungs: Breathing non-labored on BiPAP. Clear to auscultation Abdomen: Non-distended, normal bowel sounds; soft, non-tender; no masses or hepatosplenomegaly; no rebound, guarding or peritoneal signs Extremities: Warm, well perfused. No cyanosis, clubbing, or edema. 2+ peripheral pulses present in all four extremities Neurologic: Alert, oriented, cooperative; no focal deficits grossly. Skin: Warm, dry. Normal turgor. No rashes, lesions, petechia or purpura Laboratory: Summary: CBC: Downtrending WBC, Hb and Plt holding steady BMP: Steady across the board, K 3.7 CBC: Recent Labs 08/24/19 03408/23/1933908/22/19 1835 WBC 12.5* 14.5* 18.8* HGB 13.8 14.3 16.2 PLATELET 205 207 244 Chemistry: Recent Labs 08/24/19 03408/23/19 03408/22/19 1835 NA 142 142 139 K 3.7 3.7 4.0 CL 107 106 105 CO2 22 23 19* BUN 23* 23* 19 CREATININE 1.01 0.98 0.97 GLUCOSE -- -- 147 Recent Labs 08/24/1933908/23/1933908/22/19 1835 CALCIUM 9.1 9.2 9.2 MAGNESIUM 0.91 0.86 -- LFT's: Recent Labs 08/22/19 1835 BILITOT 0.8 BILIDIR 0.2 ALBUMIN 3.7 ALKPHOS 66 ALT 63* AST 49* Coags: No results for input(s): PT, INR, PTT, FIBRINOGEN, DDIMER in the last 168 hours. Invalid input(s): THROMBIN TIME Cardiac enzymes: Recent Labs 08/22/19 1835 TROPONINT 0.03* PROBNP 4,328* Endocrine: No results for input(s): TSH, CORTISOL in the last 7068 hours. Invalid input(s): [id number] Heme: No results for input(s): LDH, HAPTOGLOBIN, URICACID in the last 168 hours. Microbiology: None Diagnostic Studies: CTA with bilateral PE and sings of right heart strain on 08/22/2019 TTE 08/23/2019 SUMMARY: ?? 1. Technically limited study. 2. The left [...] See remainder of report for additional findings. Assessment and Plan: 53 year old male with PMH of htn and KENTRELL presents with bilateral PE. The decision was made to treat his pulmonary emboli medically with enoxaparin. Overnight had no acute events. Oxygen requirements are down and he is maintained well on nasal cannula while awake and CPAP at night. Stable to transfer to floor today with aplan to discharge tomorrow. PESI score- 102 sPESI- 2 ?? Plan ?? # Bilateral main PA PE's - lovenox weight based dosing, trough to be drawn today - Echo showing right heart strain - DVT duplex tomorrow - Start coumadin tonight - Monitor O2 requirements ?? # Hx HTN - Have been holding home antihypertensives at this time (atenolol, chlorthalidone, losartan) - Bps have been normal, will continue to hold # Hx KENTRELL - Resumed CPAP ?? # Housekeeping DVT: therapeutic lovenox Diet: Daily Healthy Menu Choices/Cardiac diet ([facility]-Diet) Vegetarian Code: Full code Dispo: Transfer to cards floor today, pending possible discharge tomorrow Epifanio Hassan MD PGY1, Internal Medicine Team Pager #[phone] 08/24/2019 CARDIOLOGY ATTENDING NOTE Patient: Esteban Handley Date of Service: 08/24/2019 Date of Admission: 08/22/2019 Length of Stay Hospital Day 2 days ?? Please see the above note by Dr. Hassan for details. I have interviewed and examined the patient independently and I concur with the assessment and plan. The case was discussed on cardiology rounds andwe reviewed the plan of care with the team and patient. In addition, I certify that I am a D-H credentialed attending provider with admitting privileges and that the patient meets or has met medical necessity to require an inpatient IPI level of care meeting a minimum of two midnights or is on the CMSinpatient only procedure list (status C) due to: acute respiratory compromise and/or hypoxia requiring assessment every 4 hours and the ability to respond immediately to the patient's needs. ?? Mr. Handley is a 53 year old man with history of hypertension, obesity, KENTRELL on CPAP who presented to [facility] with several day history of shortness of breath and dry cough, found to be hypoxic, and consequent work up with bilateral PE with RV strain. He was placed on BiPAP with improvement in oxygen saturations. He was started on AC with lovenox 1 mg/kg BID. Transferred to [facility] for consideration of advanced therapies - troponin 0.03, proBNP 4300. COVID-19 negative. Has been off BiPAP, now on 2L NC, feeling improved. Hemodynamically stable. TTE with moderately dilated RV with moderately reduced RV function, PASP 55 mm Hg + RAP. DVT duplex pending. Given improvement in symptoms and hemodynamic stability, no role for advanced therapies at this point. Continue Lovenox 1 mg/kg BID, start Coumadin (given his weight >140 kg). This is unprovoked VTE (risk factors of obesity and relative immobility in setting of pandemic). Will need AC with Coumadin at least for first ~12 months given weight ~180 kgs. Transfer to floor. ?? Rest per Dr. Hassan. Wagner Hawkins MD, MPH Cardiovascular Medicine Esteban Modi, FINANCIAL INVESTMENT ADVISER - 08/23/2019 10:52 PM EDT 08/23/19 2249 Non Invasive Ventilation Data NIV Device Patient owned device NIV Mode CPAP NIV Settings O2 Bleed In (LPM) 5 L/min PEEP/CPAP (cm H2O) 11 cm H20 NIV Humidifier Temp 2 NIV Humid. H2O Level full NIV Measurements Resp 19 SpO2 95 % NIV Interface NIV Interface Options Face Mask Mask Size (ped / adult) Large NIV Skin Assessment NIV Skin Assessment WDL WDL Mepilex Applied Yes Nares Assessment WDL WDL Patient changed from V60 to home CPAP unit on above preset settings, tolerated well overnight. Patient has history of KENTRELL will continue to offer NIV HS. Shaun Nath MD - 08/23/2019 1:11 PM EDT STAFF PROGRESS NOTE Critical Care Medicine Author: SHAUN NATH MD Patient seen and examined on critical care rounds. Esteban Handley is a 53 y.o. male with the following active issues:: Active Hospital Problems Diagnosis ??? Pulmonary embolism Resolved Hospital Problems No resolved problems to display. ASSESSMENT, MANAGEMENT, and DECISION MAKING: Critically ill with obesity, RV dilation, and PEs, currently on BiPAP support. He r/o for covid on admission. He has been hemodynamically stable overnight. -trial off BiPAP, tolerating NC -02 at this time without difficulty, -lovenox at therapeutic dosing -follow up echo today for further assessment of RV EXAM: Physical Exam On bipap during rounds Now on NC o2 no distress. Chest clear Cor distant abd non tender, rotund Ext warm Last value Range last 24 hrs Temperature Temp: 37.1 ??C (98.8 ??F) Temp: [36.1 ??C (97 ??F)-37.3 ??C (99.1 ??F)] Heart Rate Heart Rate: 68 Heart Rate: [62-77] Blood Pressure BP: 117/77 BP: (108-166)/(56-114) Respiratory Rate Resp: 17 Resp: [16-29] SpO2 SpO2: 97 % SpO2: [92 %-98 %] Art BP BP (Arterial Line): -- Last Ht 08/22/19 180.3 cm (5' 11) Last Wt 08/22/19 (!) 180.1 kg (397 lb 0.8 oz) Body mass index is 55.38 kg/m??. IS PATIENT CRITICALLY ILL ? Is there a high potential of sudden, clinically significant, or life threatening deterioration? Yes Is there a need for direct personal assessment and management to treat/prevent multiple vital organfailure/deterioration? Yes PATIENT IS CRITICALLY ILL WITH THESE DIAGNOSES BEING MANAGED BY [facility] TEAM: Other PE with RV dilation. I personally performed 35 minutes of aggregate critical care time exclusive of procedures and teaching. This includes time spent during direct patient evaluation and reassessment, interpreting diagnostic tests, directing life and/or organ supporting interventions and documentation on the unit. SHAUN NATH MD 08/23/2019 Kerline Dueñas, RT - 08/23/2019 10:31 AM EDT Respiratory Therapy NIV Note NIV Settings: NIV Mode: S/T IPAP (cmH20): 16 EPAP (cmH20): 8 Pressure Support (cm H2O): 8 FiO2 (%): 40 % NIV Measurements: Resp: 21 Mve: 23 Leak (L/min): 21 L/min Vte: 1002 SpO2: 95 % Current Inhaled Medications: None Skin Assessment: NIV Skin Assessment WDL: WDL Except Bridge of Nose Skin Assessment: Erythema Mepilex Applied: Yes Nares Assessment WDL: WDL Breath Sounds: Diminished Assessment: I received Esteban this morning on BiPAP 16/8 FiO2 40%. Esteban slept with BiPAP on overnight. He does have a history of KENTRELL and uses NIV at home at night. He currently does not have his own CPAP/BiPAP here. On exam at bedside, he was awake and alert, and appeared well-rested. I transitioned him to NC 6 lpmat 09:52 this morning, and he was maintaining SpO2 94-96% with RR 15-20. No distress noted. However,since Esteban came to the hospital complaining of dry cough and worsening dyspnea, he will be intermitt ently placed on BiPAP as indicated during the day, and possibly HFNC if needed. Esteban has also been ruled out for COVID-19. O2 weaned from NC 6 lpm to 4 lpm. Plan: BiPAP PRN and at night for KENTRELL. Patient plans on having his home CPAP brought in. HFNC if indicated. Currently patient is stable on low flow oxygen therapy with SpO2 >92%. RT Phil Wagner Hawkins MD - 08/23/2019 7:12 AM EDT Inpatient Medicine Progress Note Hospital Day 1 day Active Hospital Problems Diagnosis ??? Pulmonary embolism Resolved Hospital Problems No resolved problems to display. ID: 53 y/o obese, HTN, history of KENTRELL presents with submassive pulmonary embolism 24 Hour Events: - On bipap all evening, 168, FiO2 40% - Tested negative for covid - continued on lovenox 180 BID ROS: Denies fevers/chills, chest pain, shortness of breath, diarrhea/vomiting/abdominal pain/constipation, muscle aches or weakness. Inpatient Medications: Scheduled Meds: ??? enoxaparin 1 mg/kg/dose Subcutaneous 2 times per day ??? bolus IV fluid Intravenous Once ??? magnesium sulfate 2 g Intravenous Once ??? potassium chloride ER 40 mEq Oral Once ??? sodium chloride 0.9 % (flush) 5 mL Intravenous BID ??? sodium chloride 0.9 % (flush) 5 mL Intravenous BID Continuous Infusions: PRN Meds: sodium chloride 0.9 % (flush), lidocaine, nitroGLYcerin, sodium chloride 0.9 % (flush), lidocaine Vitals: Last value Range last 24 hrs Temperature Temp: 37.1 ??C (98.8 ??F) Temp: [36.1 ??C (97 ??F)-37.3 ??C (99.1 ??F)] Heart Rate Heart Rate: 77 Heart Rate: [67-77] Blood Pressure BP: 108/74 BP: (108-166)/(67-114) Respiratory Rate Resp: 21 Resp: [16-29] SpO2 SpO2: 95 % SpO2: [92 %-98 %] Ins/Outs: Intake/Output Summary (Last 24 hours) at 08/23/2019 1000 Last data filed at 08/23/2019 0800 Gross per 24 hour Intake 10 ml Output 0 ml Net 10 ml Physical Exam: General: Pleasant, breathing comfortably on BiPAP, obese HEENT: limited on BiPAP, grossly normal Chest: Symmetric chest wall expansion upon inspiration; no kyphoscoliosis Cor: Normal rate, regular rhythm; normal S1/S2, no S3; no murmurs or rubs appreciated Lungs: Breathing non-labored on BiPAP. Clear to auscultation Abdomen: Non-distended, normal bowel sounds; soft, non-tender; no masses or hepatosplenomegaly; no rebound, guarding or peritoneal signs Extremities: Warm, well perfused. No cyanosis, clubbing, or edema. 2+ peripheral pulses present in all four extremities Neurologic: Alert, oriented, cooperative; no focal deficits grossly. Skin: Warm, dry. Normal turgor. No rashes, lesions, petechia or purpura Laboratory: CBC: Recent Labs 08/23/19 0340 08/22/19 1835 WBC 14.5* 18.8* HGB 14.3 16.2 PLATELET 207 244 Chemistry: Recent Labs 08/23/19 0340 08/22/19 1835 NA 142 139 K 3.7 4.0 CL 106 105 CO2 23 19* BUN 23* 19 CREATININE 0.98 0.97 GLUCOSE -- 147 Recent Labs 08/23/19 0340 08/22/19 1835 CALCIUM 9.2 9.2 MAGNESIUM 0.86 -- LFT's: Recent Labs 08/22/19 1835 BILITOT 0.8 BILIDIR 0.2 ALBUMIN 3.7 ALKPHOS 66 ALT 63* AST 49* Coags: No results for input(s): PT, INR, PTT, FIBRINOGEN, DDIMER in the last 168 hours. Invalid input(s): THROMBIN TIME Cardiac enzymes: Recent Labs 08/22/19 1835 TROPONINT 0.03* PROBNP 4,328* Endocrine: No results for input(s): TSH, CORTISOL in the last 7068 hours. Invalid input(s): [id number] Heme: No results for input(s): LDH, HAPTOGLOBIN, URICACID in the last 168 hours. Microbiology: None Diagnostic Studies: CTA with bilateral PE and sings of right heart strain Assessment and Plan: 53 year old male with PMH of htn and KENTRELL presents with bilateral PEHis CTA and biomarkers are abnormal he falls in the intermediate-high risk category and as such we will consider catheter directed therapy. Discussions will occur with PERT team today. In the meantime we will wean NIV as this could impact decision making. Formal echo today. Continue therapeutic anticoagulation. Check lovenox level tomorrow 08/24/2019 at 9 am. He's made very ltitle urine and as such will support his HD with 500 cc bolus, with careful eye on overload in his fragile state. ?? PESI score- 102 sPESI- 2 ?? Plan ?? # Bilateral main PA PE's - lovenox weight based dosing - Echo to eval right heart strain - Consideration of catheter directed lytics if covid is negative - Baseline DVT duplex ?? # Hx HTN - Hold home antihypertensives at this time (atenolol, chlorthalidone, losartan) - restart losartan if HTN overnight and renal function stable ?? # Hx KENTRELL - Resume home CPAP when current issue has resolved ?? # Housekeeping DVT: therapeutic lovenox Diet: NPO Code: Full code ?? SHANNON Padron MD PGY3, Internal Medicine Personal Pager #[phone] 08/23/2019 CARDIOLOGY ATTENDING NOTE Please see my addendum in the H&P note dated 08/22/2019. Wagner Hawkins MD, MPH Cardiovascular Medicine Esteban Modi, FINANCIAL INVESTMENT ADVISER - 08/23/2019 2:07 AM EDT Respiratory Therapy NIV Note NIV Settings: NIV Mode: S/T IPAP (cmH20): 16 EPAP (cmH20): 8 FiO2 (%): 40 % NIV Measurements: Resp: 24 Mve: 21 Leak (L/min): 13 L/min Vte: 858 SpO2: 95 % Skin Assessment: NIV Skin Assessment WDL: WDL Except Bridge of Nose Skin Assessment: Erythema(prior to placing on V60) Mepilex Applied: Yes Nares Assessment WDL: WDL Assessment: 53 year old male with PMH of HTN and KENTRELL presents with bilateral PE. Patient was received this evening on BiPAP, with the settings above. No distress noted. Determined this evening to be negative for COVID. Transferred here to [facility] . Plan: Plan to rest overnight on BIPAP and re- assess during day. Patient has history of KENTRELL will continue to offer NIV HS. ESTEBAN MODI RRT Stefan Carney [facility] - 08/22/2019 11:35 PM EDT Respiratory Therapy NIV Note NIV Settings: NIV Mode: S/T IPAP (cmH20): 16 EPAP (cmH20): 8 FiO2 (%): 40 % NIV Measurements: Resp: 24 Mve: 29.2 Leak (L/min): 36 L/min Vte: 1148 SpO2: 95 % Skin Assessment: NIV Skin Assessment WDL: WDL Except Bridge of Nose Skin Assessment: Erythema(prior to placing on V60) Mepilex Applied: Yes Nares Assessment WDL: WDL Assessment/Plan: Esteban Handley is a 53 y.o. male, admitted 08/22/2019 with dyspnea, awaiting results for COVID-19. He was received this evening on BiPap, with the settings above. No distress noted. Determined this evening to be negative for COVID. Transferred care to [facility]. Continue to support with BiPap and O2, as tolerated. Stefan Carney RCP Jatin Parada - 08/22/2019 6:10 PM EDT Respiratory Therapy NIV Note NIV Settings: NIV Mode: S/T IPAP (cmH20): 16 EPAP (cmH20): 8 FiO2 (%): (S) 40 %(per SpO2) NIV Measurements: Resp: 29 Mve: 40.6 Leak (L/min): 50 L/min Vte: 1397 SpO2: 98 % Skin Assessment: Redness on bridge of nose prior to being placed on V60. NIV Skin Assessment WDL: WDL Except Bridge of Nose Skin Assessment: Erythema(prior to placing on V60) Mepilex Applied: Yes Nares Assessment WDL: WDL Breath Sounds: Diminished/clear Assessment/Plan: Received pt ~1720 transported from OSH on [facility]. Placed on BiPAP on 06/12 45%. Weaned to 40%. Wean O2 requirements as tolerated. Adjusted BiPAP settings as indicated. Jatin Parada RCP documented in this encounter H&P Notes Wagner Hawkins MD - 08/22/2019 3:11 PM EDT Admission History and Physical Patient Name: Esteban Handley Service: S2 Team, Pager [phone] Responsible Attending: Mirza Hawkins MD Primary Provider: Becky Castillo MD [phone] Chief Complaint: Shortness of breath, found to have PE History of Present Illness: 53 y/o obese, HTN, history of KENTRELL presenting with SOB starting 3 days prior. He initially noted a dry cough, and has had progressively worse dyspnea on exertion without chest pain over the past 3 days.He also reports chills (did not take his temperature). On the morning of admission, he developed severe shortness of breath and weakness while walking to the bathroom, which prompted him to go to [facility]. At [facility], patient had O2 sats in 70s on RA, that ultimately improved with BiPAP. Patient otherwise hemodynamically stable and afebrile. EKG notable for TWI in V1-V4 and troponin tuan from 0.23->0.33.Subsequent CT PE revealed bilateral PE with questionable infarct of pulmonary vascular bed. He recevieed lovenox 1mg/kg dosing and was transferred to [facility] for further management. ?? Review of Systems: ?? GENERAL ?? HEENT ?? COR ?? PULM All negative X All negative ??X All negative ?? All negative ?? Weight loss ?? Headache Chest Pain ?? Non-productive cough ?? Weight gain ?? Vision change ?? Palpitations ?? Productive cough ?? Fevers ?? Sinus congestion ?? Orthopnea ?? Wheezing ??X Chills ?? Hoarseness ?? Leg edema ?? Hemoptysis ?? Night sweats ?? Epistaxis ?? Paroxysmal nocturnal dyspnea ?? Pleuritic pain ?? Fatigue ? Syncope ?? SOB ? Claudication X?? CARBALLO ? MSK ?? RENAL ?? ENDO ?? GI X All negative X All negative X All negative X All negative ?? Arthralgias ?? Frequency ?? Heat intolerance ?? Blood in stool ?? Myalgias ?? Urgency ?? Cold intolerance ?? Dysphagia ?? Weakness ?? Hematuria ?? Polydipsia ?? Odynophagia ?? Stiffness ?? Flank pain ?? Polyphagia ?? Abdominal discomfort ? Dysuria ?? Cushingoid ?? Constipation ? Foamy urine ? Diarrhea ? Discharge ? Nausea/Vomiting ? LYMPH ?? SKIN ?? NEURO ?? PSYCH X All negative X All negative X All negative X All negative ?? Swollen nodes ?? Rash ?? Seizures ?? Depressed affect ?? Tender nodes ?? Ulcers ?? Tremors ?? Occupational stress ?? Diffuse nodes ?? Bruising ?? Spasticity ?? Anxiety ?? Local nodes ?? Tanned skin ?? Focal weakness ?? Insomnia ?? Night sweats ?? Telangiectasias ?? Diplopia ? Paresthesias ? Dizziness ? Past Medical and Surgical History: Patient Active Problem List Diagnosis ??? Pulmonary embolism Medications: No current facility-administered medications on file prior to encounter. No current outpatient medications on file prior to encounter. Allergies: No Known Allergies Family History: Mother - addisons Negative for VTE or cardiac disease Social History: Alcohol: rare Tobacco: 20 pack years Illicits: none Living Situation: lives at home with partner Yusuf (not ) Vocation: Teacher Vitals: Last value Range last 24 hrs Temperature Temp: 37.3 ??C (99.1 ??F) Temp: [37.3 ??C (99.1 ??F)] Heart Rate Heart Rate: 77 Heart Rate: [77] Blood Pressure BP: 129/69 BP: (127-129)/(69-81) Respiratory Rate Resp: 25 Resp: [23-29] SpO2 SpO2: 92 % SpO2: [92 %-98 %] Examination: General: Pleasant, breathing comfortably on BiPAP, obese HEENT: limited on BiPAP, grossly normal Chest: Symmetric chest wall expansion upon inspiration; no kyphoscoliosis Cor: Normal rate, regular rhythm; normal S1/S2, no S3; no murmurs or rubs appreciated Lungs: Breathing non-labored on BiPAP. Clear to auscultation Abdomen: Non-distended, normal bowel sounds; soft, non-tender; no masses or hepatosplenomegaly; no rebound, guarding or peritoneal signs Extremities: Warm, well perfused. No cyanosis, clubbing, or edema. 2+ peripheral pulses present in all four extremities Neurologic: Alert, oriented, cooperative; no focal deficits grossly. Skin: Warm, dry. Normal turgor. No rashes, lesions, petechia or purpura Access: Patient Lines/Drains/Airways Status Active Tubes/Lines/Drains Name: Placement date: Placement time: Site: Days: Peripheral IV Line - Single Lumen 08/22/19 basilic vein (medial side of arm), left 18 gauge 08/22/19 -- less than 1 Laboratory: CBC: Recent Labs 08/22/19 1835 WBC 18.8* HGB 16.2 PLATELET 244 Labs pending Microbiology: Covid pending Imaging and Diagnostics: CTA with bilateral PE and sings of right heart strain Assessment and Plan: 53 year old male with PMH of htn and KENTRELL presents with bilateral PE He is hemodynamically stable but has evidence of right heart strain based on tropnoin and CTA. As His CTA and biomarkers are abnormal he falls in the intermediate-high risk category and as such we will consider catheter directed therapy, this is unfortunately limited by his COVID isolation status while his test is pending. He has no absolute contraindaction to catheter directed lytics - intracranial neoplasm, recent (ie, <2 months) intracranial or spinal surgery or trauma, history of a hemorrhagic stroke, active bleeding or bleeding diathesis (eg, severe thrombocytopenia), or nonhemorrhagic stroke within the previousthree months PESI score- 102 sPESI- 2 (if he does have cardiopulm disease, looks like hes on fluticasone and montelukast) Plan # Bilateral Pulmonary Artery Embolism - lovenox weight based dosing - Echo to eval right heart strain - Consideration of catheter directed lytics if covid is negative # Hx HTN - Hold home antihypertensives at this time (atenolol, chlorthalidone, losartan) - restart losartan if HTN overnight and renal function stable # Hx KENTRELL - Resume home CPAP when current issue has resolved # Housekeeping DVT: therapeutic lovenox Diet: NPO Code: Full code S2 Team Pager [phone] Bernardo Brantley MD CARDIOLOGY ATTENDING NOTE Patient: Esteban Handley Date of Service: 08/23/2019 Date of Admission: 08/22/2019 Length of Stay Hospital Day 1 day Please see the above note by Dr. Brantley for details. I have interviewed and examined the patient independently and I concur with the assessment and plan. The case was discussed on cardiology rounds and we reviewed the plan of care with the team and patient. In addition, I certify that I am a D-H credentialed attending provider with admitting privileges and that the patient meets or has met medical necessity to require an inpatient IPI level of care meeting a minimum of two midnights or is on the [facility] inpatient only procedure list (status C) due to: acute respiratory compromise and/or hypoxia requiring assessment every 4 hours and the ability to respond immediately to the patient's needs. Mr. Handley is a 53 year old man with history of hypertension, obesity, KENTRELL on CPAP who presented to [facility] with several day history of shortness of breath and dry cough, found to be hypoxic, and consequent work up with bilateral PE with RV strain. He was placed on BiPAP with improvement in oxygen saturations. He was started on AC with lovenox 1 mg/kg BID. Transferred to [facility] for consideration of advanced therapies - troponin 0.03, proBNP 4300. He fells better this morning. Has remained hemodynamically stable. Will obtain TTE today, DVT duplex for baseline. Wean BiPAP. Given symptomatic improvement and stable hemodynamics, hold off advanced therapies for now but will reassess throughout the day. This is unprovoked VTE (risk factors of obesity and relative immobility in setting of pandemic). Will need AC with Coumadin at least for first ~12 months given weight ~[address] Brantley. Wagner Hawkins MD, MPH Cardiovascular Medicine documented in this encounter Miscellaneous Notes Plan of Care - Naomi Wiggins, PT - 08/25/2019 11:25 AM EDT Physical Therapy Evaluation Patient profile: Esteban Handley is a 53 year old male with PMH of htn and??KENTRELL??presents with bilateral PE. The decision was made to treat his pulmonary emboli medically with enoxaparin. Overnight had no acute events. Oxygen requirements are down and he is maintained well on nasal cannula while awake and CPAP at night. Patient with the following active problems: No past medical history on file. No past surgical history on file. There are no active non-hospital problems to display for this patient. Social History: Home set-up: Lives with his significant other and cat in a 2 level home with 5 POLA with rails (able to reach both). Bedroom is on 2nd level (1 Fos up with rail). Baseline Mobility: Independent, drives. Works as a professor at [employer]. His significant other is able to assist with needs at home if needed Equipment at home: none Fall history: none Precautions/Special Considerations: recent b/l PE; monitor O2 sats; body habitus Activity Orders: ok to mobilize per team and RN Mobility and Positioning Recommendations: ?? Pt. to utilize SBA/mod-I for ambulation and transfers with nursing. ?? Please encourage up to chair for meal times as able. ?? Pt encouraged to ambulate frequently with staff, getting into the bathroom for toileting and walking out in the armendariz >/= 3 times daily as able. Subjective: ???I feel good?? Objective: Pt seen for evaluation today. Pain: none Vital Signs: HR: 76-90 SpO2: see below Certification of Medical Necessity Form for Home Oxygen Esteban Handley is requiring HOME OXYGEN due to the diagnosis of hypoxia due to: Oxygen saturations documented Resting on Room Air: 89% Resting on 3Lliters of O2: 94% (Please document below the Activity Saturations if Resting saturations are >88% ) Activity on Room Air: 85% Activity on O2 at 3L liters: 91 % Mental Status: alert, oriented to person, place, and time Vision: WFL Skin: intact Musculoskeletal: ROM: BLE and BUE WFL Strength: BLE WFL Sensation: intact Bed Mobility: NA received in chair Transfers: Sit to Stand: independent Stand to Sit: independent Gait: Distance: 180' with 1 standing rest break Device used: none Level of assist: SBA to manage o2 cart and lines Gait mechanics: steady. Dyspnea post stairs and intermittently during gait requiring 2 brief standing rests. Educated on pacing skills for home. Steady with no LOB noted. Stairs: 14 steps with 1 rail, SBA to manage lines. Ixve-[id number]-nvmf. Steady. Mildly dyspneic after negotiating stairs, placed on 3L with return to 91%. Educated on pursed lip breathing. Balance: Sitting Static: good Sitting Dynamic: good Standing Static: good Standing Dynamic / Gait: good Education: patient has been educated on Transfers, Stairs, Breathing exercises, Safety , Gait , Activity pacing/Energy conservation, Role of therapy and Discharge planning and verbalizes understanding. Patient status, treatment, and mobility recommendations discussed with nursing. Assessment: Esteban Handley was seen today for physical therapy evaluation. Presents with hx of PE and decreased activity tolerance (need for new O2 support). Currently ambulating well without assist. Desatted to 85% on RA with activity, mildly dyspneic and required 3L NC (See vitals section above). Cleared stairs. Provided education re: pacing with activity. Overall, appears to be close to his functional baseline and anticipate no further inpatient PT needs. Recommend d/c to home when medically able(has good home support from significant other). Pt will benefit from frequent opportunities to ambulate with nsg while in-house. Discharge Recommendations: Based on the current findings, Anticipated Discharge Disposition: home(lives with significant other)when medically ready for hospital discharge. Consult Recommendations: No other consults recommended at this time. Equipment needs: No equipment necessary Plan: Therapy Frequency: evaluation only. Patient/family understand and agree with plan as stated above. 2017 PT Evaluation Code Rationale: ?? Diagnosis & Pertinent Co-Morbidities, personal factors, and present illness affecting Plan ofCare: (see above); Additional personal factors or co- morbidities that impact plan: ?? Total # of Factors: 0 1-2 3+ x ?? Examination of body system impairments, functional limitations and behaviors, and/or participation restrictions. Addressing 1-2 elements x Addressing 3 + elements Addressing 4 + elements ?? Clinical presentation: See assessment above. Stable/Uncomplicated Evolving/Fluctuating Symptoms Unstable/Unpredictable x ?? Clinical decision making of low complexity based on pt's functional performance as outlined in this evaluation. Time IN / OUT: 4417-8261 Total Evaluation Minutes, Physical Therapy: 17(eval) Naomi Wiggins, PT DPT Pager: [phone] Physical Therapy Inpatient Rehabilitation Department Consult Note - Santo Brar, [facility] - 08/25/2019 9:32 AM EDT Pharmacy Warfarin Management Service Daily Consult Note: Warfarin Management Plan: Ordering Provider: Wagner Hawkins MD Indications: PE Status: New Start Goal INR: : 2.0 - 3.0 Outpatient Warfarin Management: (Claudio Alegre MD [place], [place] ) Duration of Therapy: 12 months Date INR Dose Ordered Pharmacist Assessment 08/24/2019 1.2 5 mg Bilateral main PA PE's, DVT duplex planned for tomorrow. Therapeutic lovenox expecting to be at goal level tomorrow. H/H stable, nutrition good. Obesity may decr warfarin sens. Will dose 5mg tonight due to moderate sens. 08/25/2019 1.2 10 mg (to be taken at home after discharge) Day #2 initiation with no INR change as expected. Enoxapairn anti-Xa level resulted in range at 0.58 unit/mL (drawn appropriately at 4 hrs post-injection prior to 4th dose). Warfarin dosing scale will be increased to 10 mg due to patient's youngage, morbid obesity, lack of drug interactions or other sensitivity related risk factors. Will plan for pt discharge today to include recommendation to dose warfarin 10 mg today (08/24) and tomorrow (08/25) with INR check on 08/26. Recent Labs 08/25/19 0556 08/24/19 1345 08/24/19 0340 08/23/19 0340 PT 14.3* 13.9* -- -- INR 1.2 1.2 -- -- HGB 13.0* -- 13.8 14.3 HCT 38.9* -- 41.6 41.8 PLATELET 200 -- 205 207 BUN 16 -- 23* 23* CREATININE 0.88 -- 1.01 0.98 Estimated Creatinine Clearance: 162.4 mL/min (based on SCr of 0.88 mg/dL). Warfarin Drug Interactions (clinically relevant): enoxaparin 180 mg subq q12hr Assessment: Warfarin Sensitivity Assessment: Age 50-75 years old;Baseline INR 1.2-1.5 Today's INR: 1.2 is Subtherapeutic Initiation dosing scale: Alt sensitivity (10 mg) Days of therapy: 2 Pharmacist Asessment Notes: Day #2 initiation with no INR change as expected. Enoxapairn anti-Xa level resulted in range at 0.58 unit/mL (drawn appropriately at 4 hrs post-injection prior to 4th dose).Warfarin dosing scale will be increased to 10 mg due to patient's young age, morbid obesity, lack ofdrug interactions or other sensitivity related risk factors. Will plan for pt discharge today to include recommendation to dose warfarin 10 mg today (08/24) and tomorrow (08/25) with INR check on 08/26. Plan: Warfarin dose ordered: 10 mg (to be taken at home after discharge) Pharmacist Plan notes: Daily INR, CBC Pharmacist Recommendations: Recommend continuing enoxaparin 180 mg bid upon discharge for at least 5total days therapeutic INR. Discharge Planning: Patient education: (Nurse to provide education at discharge using AVS and [employer]wise documents) Coumadin education booklet provided: (Nurse to provide to patient prior to discharge) AVS documentation: Completed [employer]wise documents attached to AVS: Warfarin;Vitamin K Diet Discharge Dosing Recommendations: Warfarin 10 mg on 08/25/19 and 10 mg on 08/26/19 with INR check on 08/27/19 10:40 AM. Instruct to please wear mask to appt. Thank you very much for the consult. We will continue to dose and monitor warfarin daily. If there is a change in medical condition that warrants discontinuation of warfarin, please discontinue the pharmacy warfarin consult and communicate this to the pharmacy warfarin management service. Pharmacy warfarin management service pager: #[phone] SANTO BRAR RPH Consult Note - Venita Sears RPH - 08/24/2019 2:28 PM EDT Pharmacy Warfarin Management Service Daily Consult Note: Warfarin Management Plan: Ordering Provider: Dr. Hawkins Indications: PE Status: New Start Goal INR: : 2.0 - 3.0 Duration of Therapy: 12 months Date INR Dose Ordered Pharmacist Assessment 08/24/2019 1.2 5 mg Bilateral main PA PE's, DVT duplex planned for tomorrow. Therapeutic lovenox expecting to be at goal level tomorrow. H/H stable, nutrition good. Obesity may decr warfarin sens. Will dose 5mg tonight due to moderate sens. Recent Labs 08/24/19 1345 08/24/19 0340 08/23/19 0340 08/22/19 1835 PT 13.9* -- -- -- INR 1.2 -- -- -- HGB -- 13.8 14.3 16.2 HCT -- 41.6 41.8 46.6 PLATELET -- 205 207 244 BUN -- 23* 23* 19 CREATININE -- 1.01 0.98 0.97 Estimated Creatinine Clearance: 141.7 mL/min (based on SCr of 1.01 mg/dL). Warfarin Drug Interactions (clinically relevant): Lovenox 180 Q12h Assessment: Warfarin Sensitivity Assessment: Age 50-75 years old;Baseline INR 1.2-1.5 Today's INR: 1.2 is Subtherapeutic Initiation dosing scale: Moderate sensitivity (5 mg) Days of therapy: 1 Pharmacist Asessment Notes: Bilateral main PA PE's, DVT duplex planned for tomorrow. Therapeutic lovenox expecting to be at goal level tomorrow. H/H stable, nutrition good. Obesity may decr warfarin sens. Will dose 5mg tonight due to moderate sens. Plan: Warfarin dose ordered: 5 mg Pharmacist Plan notes: Daily INR, CBC Discharge Planning: Patient education: Not started(Nurse to provide education at discharge) Coumadin education booklet provided: No(Nurse to provide during education) AVS documentation: In [employer] documents attached to AVS: Warfarin;Vitamin K Diet Thank you very much for the consult. We will continue to dose and monitor warfarin daily. If there is a change in medical condition that warrants discontinuation of warfarin, please discontinue the pharmacy warfarin consult and communicate this to the pharmacy warfarin management service. Pharmacy warfarin management service pager: #[phone] Venita Sears RPH documented in this encounter Plan of Treatment Scheduled Referrals Name Type Priority Associated Order Schedule Diagnoses Referral to Outpatient Referral Routine Other acute Ordered: Cardiology pulmonary embolism 0 without acute cor pulmonale documented as of this encounter Procedures Procedure Name Priority Date/Time Associated Comments Diagnosis DUPLEX FOR DVT BILAT Routine 08/25/2019 10:26 Other acute Res ults for this LEGS AM EDT pulmonary embolism procedure are in with acute cor the results pulmonale section. HC VENIPUNCTURE Routine 08/25/2019 5:56 AM Result s for this EDT procedure are i n the results section. HEMOGRAM Routine 08/25/2019 5:56 AM Results f or this EDT procedure are i n the results section. DIFFERENTIAL, AUTOMATED Routine 08/25/2019 5:56 AM Results for this EDT procedure are i n the results section. HC PROTHROMBIN TIME Routine 08/25/2019 5:56 AM Re sults for this EDT procedure are i n the results section. HC CBC,PLT & AUTO DIFF Routine 08/25/2019 5:56 AM EDT HC MAGNESIUM, SERUM Routine 08/25/2019 5:56 AM Re sults for this EDT procedure are i n the results section. HC PROTHROMBIN TIME Routine 08/24/2019 1:45 PM Re sults for this EDT procedure are i n the results section. HC LOW MOLECULAR WEIGHT Routine 08/24/2019 9:50 AM Results for this HEPARIN ([facility]) EDT procedure are in the results section. BMP W/FASTING GLUCOSE Routine 08/24/2019 3:40 AM Results for this EDT procedure are i n the results section. HEMOGRAM Routine 08/24/2019 3:40 AM Results f or this EDT procedure are i n the results section. DIFFERENTIAL, AUTOMATED Routine 08/24/2019 3:40 AM Results for this EDT procedure are i n the results section. HC CBC,PLT & AUTO DIFF Routine 08/24/2019 3:40 AM EDT HC MAGNESIUM, SERUM Routine 08/24/2019 3:40 AM Re sults for this EDT procedure are i n the results section. ECHOCARDIOGRAM COMPLETE Routine 08/23/2019 12:03 Iatrogenic Results for this W CONTRAST PM EDT pulmonary procedure are i n embolism, initial the result s encounter section. BMP W/FASTING GLUCOSE Routine 08/23/2019 3:40 AM Results for this EDT procedure are i n the results section. HEMOGRAM Routine 08/23/2019 3:40 AM Results f or this EDT procedure are i n the results section. DIFFERENTIAL, AUTOMATED Routine 08/23/2019 3:40 AM Results for this EDT procedure are i n the results section. HC CBC,PLT & AUTO DIFF Routine 08/23/2019 3:40 AM EDT HC TRIGLYCERIDES Routine 08/23/2019 3:40 AM Resul ts for this EDT procedure are i n the results section. HC MAGNESIUM, SERUM Routine 08/23/2019 3:40 AM Re sults for this EDT procedure are i n the results section. HC LDL CHOLESTEROL, Routine 08/23/2019 3:40 AM Re sults for this DIRECT EDT procedure are i n the results section. HC CHOLESTEROL Routine 08/23/2019 3:40 AM Results for this EDT procedure are i n the results section. HC HEMOGLOBIN A1C Routine 08/23/2019 3:40 AM Resu lts for this EDT procedure are i n the results section. HC GLUCOSE FASTING Routine 08/23/2019 3:40 AM Res ults for this EDT procedure are i n the results section. RESPIRATORY PANEL PCR Routine 08/22/2019 7:15 PM Results for this EDT procedure are i n the results section. EKG 12-LEAD Routine 08/22/2019 6:42 PM Iatrogenic Results f or this EDT pulmonary procedure are i n embolism, initial the result s encounter section. HEMOGRAM Routine 08/22/2019 6:35 PM Results f or this EDT procedure are i n the results section. DIFFERENTIAL, AUTOMATED Routine 08/22/2019 6:35 PM Results for this EDT procedure are i n the results section. HC CBC,PLT & AUTO DIFF Routine 08/22/2019 6:35 PM EDT HC TROPONIN T STAT 08/22/2019 6:35 PM Results for this EDT procedure are i n the results section. HC PROBNP Routine 08/22/2019 6:35 PM Results f or this EDT procedure are i n the results section. HEPATIC FUNCTION PANEL Routine 08/22/2019 6:35 PM Results for this EDT procedure are i n the results section. BASIC METABOLIC PANEL Routine 08/22/2019 6:35 PM Results for this (NON-FASTING) EDT procedure are in the results section. RAPID COVID-19 PCR Routine 08/22/2019 5:32 PM Res ults for this ([facility]) EDT procedure are in the results section. POCT GLUCOSE Routine 08/22/2019 5:30 PM Results f or this EDT procedure are i n the results section. documented in this encounter Results ECHOCARDIOGRAM COMPLETE W CONTRAST (09/11/2019 8:24 AM EDT) P athologist Signature EF 62 HEARTLAB SYSTEM Specimen (Source) Anatomical Location Collection Method / Collectio n Time Received Time / Laterality Volume 09/11/2019 Narrative HEARTLAB SYSTEM - 09/11/2019 8:52 AM EDT Procedure: ?Transthoracic Echocardiogram Patient: ?BENJAMIN ORELLANA ?(Age): 1965(53y) Med Rec#: ? [id number] ?Sex: ?M ? Site Loc: ? [facility] ?Ht / Wt: ??180(cm)/178(kg) Pt. Loc: ?Echo Lab ?BSA: ?2.8 Study Date: ?? 09/11/2019 ?Pt. Type: Outpatient Tape: ? Referring: Wagner Hawkins ??([id number]) Referring: ANN Reading: Joao Guerrero ([id number]) Clinical Staff Educator: Shelton Breaux RDCS Diagnosis: *Other pulmonary embolism without acute cor [...] Vmax ?1.04 ? m/sec ? MV deceleration [id number] ? m sec ? MV A-wave Vmax [...] ? Mid-Inferior ?Normal ? Mid-Inferoseptal ?Normal ? [place]-Septal ? Normal ? [place]-Anterior ? Normal ? [place]-Lateral ?Normal ? [place]-Inferior ? Normal ? [place]-Tip ?Normal ? This report has been electronically sign ed by: _ Joao Guerrero MD ? 09/11/2019 08:52 :06 Images reviewed and interpretation [facility] Cardiac Ultrasound Laboratory Procedure Note Joao Guerrero MD - 09/11/2019Formattin g of this note might be different from the original. Procedure: Transthoracic Echocardiogram Patient: BENJAMIN RODRIGUEZ(Age): 1965(53y) Med Rec#: [id number] Sex: M Site Loc: [facility] Ht / Wt: 180(cm)/178(kg) Pt. Loc: Echo Lab BSA: 2.8 Study Date: 09/11/2019 Pt. Type: Outpati ent Tape: Referring: Wagner Hawkins ([id number]) Referring: ANN Reading: Joao Guerrero ([id number]) Clinical Staff Educator: Shelton Breaux [facility] Diagnosis: *Other pulmonary embolism without acute cor [...] MV E-wave Vmax 1.04 m/sec MV deceleration [id number] msec MV A-wave Vmax 0.79 m/sec MV [...] Normal Mid-Posterolateral Normal Mid-Inferior Normal Mid-Inferoseptal Normal [place]-Septal Normal [place]-Anterior Normal [place]-Lateral Normal [place]-Inferior Normal [place]-Tip Normal This report has been electronically sign ed by: _ Joao Guerrero MD 09/11/2019 08:52:06 Images reviewed and interpretation verif ied [facility] Cardiac Ultrasound Laboratory Wagner Hawkins MD ECHO ORDERABLES Performing Organization Address City/State/ZIP Code Phon e Number HEARTLAB SYSTEM Duplex Study for DVT, Bilat legs (08/25/2019 10:26 AM EDT) Component Value Ref Test Analysis Performed At [facility] Range Method Time Signature VB Text Department: Vascular Surgery Lab VASCUBASE Report Patient: [id number] (ESTEBAN HANDLEY) CPT: 69422 ICD10: I26.09;I82.442 Referring Physician: WAGNER HAWKINS ?? Phone: Indications: ?? PE ICD10 Diagnosis Code: I26.09 Findings: RIGHT: Patent posterior tibial and peroneal veins, unable to exclude small non-occlusive thrombus due to poor visualization. . Patent common femoral vein and popliteal vein wi th spontaneous, respirophasic Doppler waveforms that respond normally to augme ntation maneuvers. The common femoral vein, saphenofemoral junction, femoral vein through the thigh and popliteal vein are fully compressible. LEFT: One of the paired post erior tibial veins has acute non-occlusive thrombus in the mid calf. Patent peroneal veins unable to exclu de small non-occlusive thrombus. Patent common femoral vein and popliteal vein wi th spontaneous, respirophasic Doppler waveforms that respond normally to augme ntation maneuvers. The common femoral vein, saphenofemoral junction, femoral vein through the thigh and popliteal vein are fully compressible. Interpretation: RIGHT: ??No evidence of lower extremity deep venous thrombos is. LEFT: Acute non-occlusive lower extremity deep venous thromb osis (calf vein-posterior tibial vein). Comparison: ?? No previous study in our vascular lab database for comparison. Dr. Hassan was notified of the results. Electronically Signed by: ERIN GROSSMAN on 2019-08-26 12:41:36 PM VB Text End of Report VASCUBASE Report Specimen (Source) Anatomical Collection Method Collection Time Re ceived Time Location / / Volume Laterality 08/25/2019 10:26 AM EDT Wagner Hawkins MD VASCULAR ORDERABLES Performing Organization Address City/State/ZIP Code Phon e Number VASCUBASE (ABNORMAL) Differential, Automated (08/25/2019 5:56 AM EDT) [facility] gist Method Time Signature Neutrophils % 62.6 % [facility] Neutr Abs (ANC) 6.82 (H) 1.70 - [facility] 6.10 [facility] x10(3)/[facility] LABORATORY Lymphocytes % 23.9 % [facility] Lymphocytes Abs 2.6 0.9 - 3.2 [facility] x10(3)/[facility] LABORATORY Monocytes % 6.7 % [facility] Monocyte Abs 0.7 0.3 - 0.9 [facility] x10(3)/[facility] LABORATORY Eosinophils % 5.6 % [facility] Eosinophils Abs 0.6 (H) 0.0 - 0.4 [facility] x10(3)/[facility] LABORATORY Basophils % 0.5 % [facility] Basophils Abs 0.0 0.0 - 0.1 [facility] x10(3)/[facility] LABORATORY Immature Gran % 0.70 % [facility] Comment: Immature granulocytes(IG's)percentage an d absolute count will include metamyelocytes, myelocytes, and promyelo cytes. Blood smears from CBCs yielding IG's will be scanned manually for zo rubin. If this scan disagrees with the automated IG or if promyelocytes are not ed, a manual differential will be performed. Angelia Gran Abs 0.08 (H) 0.00 - 0.04 x10(3)/[facility] LABORATORY Specimen Anatomical Collection Method Collection Time Receive d Time (Source) Location / / Volume Laterality Blood specimen 08/25/2019 5:56 AM 020 6:12 (specimen) EDT AM EDT Resulting Agency Comment Spec In Lab Epifanio Hassan MD HEMATOLOGY ORDERABLES Performing Organization Address City/State/[place] [address] (ABNORMAL) Hemogram (08/25/2019 5:56 AM EDT) Analysis Performed At Patho logist Time Signature WBC 10.9 (H) 4.0 - 9.5 [facility] x10(3)/[facility] LABORATORY RBC 4.28 (L) 4.58 - [facility] 5.54 [facility] x10(6)/[facility] LABORATORY Hemoglobin 13.0 (L) 13.7 [facility] 16[facility] gm/dL [facility] LABORATORY Hematocrit 38.9 (L) 40.5 - [facility] 48.5 % [facility] MCV 90.9 82.9 - [facility] 93.1 [facility] LABORATORY MCH 30.4 27.5 - [facility] 32.1 pg [facility] LABORATORY MCHC 33.4 32.0 - [facility] 35.7 gm/dL [facility]ORATORY Platelets 200 145 - 357 [facility] x10(3)/[facility] LABORATORY RDWSD 42.5 36.0 - [facility] 45.0 [facility] LABORATORY RDWCV 13.1 11.4 - [facility] 13.8 % [facility] LABORATORY MPV 10.9 7.6 - 12.9 [facility] LABORATORY nRBC % Auto 0.0 % [facility] nRBC Abs Auto 0.000 0.000 - [facility] 0.000 [facility] x10(3)/[facility] LABORATORY Specimen Anatomical Collection Method Collection Time Receive d Time (Source) Location / / Volume Laterality Blood specimen 08/25/2019 5:56 AM 020 6:12 (specimen) EDT AM EDT Resulting Agency Comment Spec In Lab Epifanio Hassan MD HEMATOLOGY ORDERABLES Performing Organization Address City/[facility]/[place] [address] (ABNORMAL) Prothrombin Time (08/25/2019 5:56 AM EDT) P athologist Signature PT 14.3 (H) 9.4 - 12.5 [facility] LABORATORY INR 1.2 [facility] Comment: An INR <2.0 indicates adequate [...] Location / / Volume Laterality Blood specimen 08/25/2019 5:56 AM 020 6:12 (specimen) EDT AM EDT Resulting Agency Comment Spec In Lab Wagner Hawkins MD HEMATOLOGY ORDERABLES Performing Organization Address City/[facility]/[place] [address] Magnesium (08/25/2019 5:56 AM EDT) P athologist Signature Magnesium 0.88 0.69 - 1.07 [facility] mmol/L [facility] LABORATORY Specimen Anatomical Collection Method Collection Time Receive d Time (Source) Location / / Volume Laterality Blood specimen 08/25/2019 5:56 AM 020 6:12 (specimen) EDT AM EDT Resulting Agency Comment Spec In Lab Wagner Hawkins MD CHEMISTRY ORDERABLES Performing Organization Address City/[facility]/[place] [address] (ABNORMAL) BMP w/fasting Glucose (08/25/2019 5:56 AM EDT) athologist Signature Glucose 116 (H) 65 - 99 [facility] Fasting mg/dL [facility] Comment: ?Fasting* Glucose Interpretive C riteria Normal ?65-99 mg/dL Impaired Fasting glucose ?100-125 mg/dL Consistent with Diabetes Mellitus ? >or= 126 mg/dL *Fasting is defined as no caloric intake for at least 8 hours In the absence of unequivocal hypergly cemia a plasma glucose value of >or= 126 mg/dL should be repeated on a subseq uent day. Diagnosis and Classification of Diabetes Mellitus, Position Statement from the [place] [employer]. ??Diabete s Care, Volume 33, Supplement 1, Apr 2009 BUN 16 10 - 20 mg/dL [facility] Creatinine 0.88 0.80 - 1.50 mg/dL [facility] Sodium 139 135 - 145 mmol/L [facility] Potassium 3.6 3.5 - 5.0 mmol/L [facility] Comment: Please note: ??Patients with WBC >100,00 0 may have falsely elevated Potassium levels. ??For accurate Potassium quantif ication in these patients send serum separator tube (gold top) for subsequent determinations. ??Contact the Clinical Chemistry Laboratory if there are any qu estions. Chloride 105 98 - 107 mmol/L [facility] CO2 22 22 - 31 mmol/L [facility] Anion Gap 12 5 - 15 mmol/L [facility] Calcium 8.9 8.5 - 10.5 mg/dL [facility] Estimated GFR 99 >=60 mL/min/1.73 m?? [facility] Comment: The eGFR was calculated using the CKD-EP I equation. As with all creatinine based estimates of kidney function, eGFR values calculated with the CKD-EPI equation are not accurate in patients wi th acute kidney failure, extremes of body mass or the acutely ill. [email or web address] eGFR 114 >=60 mL/min/1.73 m?? [facility] Comment: The eGFR was calculated using the CKD-EP I equation. As with all creatinine based estimates of kidney function, eGFR values calculated with the CKD-EPI equation are not accurate in patients wi th acute kidney failure, extremes of body mass or the acutely ill. [email or web address] [email or web address] Specimen Anatomical Collection Method Collection Time Receive d Time (Source) Location / / Volume Laterality Blood specimen 08/25/2019 5:56 AM 020 6:12 (specimen) EDT AM EDT Resulting Agency Comment Spec In Lab Wagner Hawkins MD CHEMISTRY ORDERABLES Performing Organization Address [facility] [place] [address] (ABNORMAL) Prothrombin Time (08/24/2019 1:45 PM EDT) P athologist Signature PT 13.9 (H) 9.4 - 12.5 [facility] LABORATORY INR 1.2 [facility] LABORATORY Comment: An INR <2.0 indicates adequate [...] Location / / Volume Laterality Blood specimen 08/24/2019 1:45 PM 020 1:50 (specimen) EDT PM EDT Resulting Agency Comment Spec In Lab Wagner Hawkins MD HEMATOLOGY ORDERABLES Performing Organization Address [facility] [place] [address] Low Molecular Weight Heparin (LMWH) Level (08/24/2019 9:50 AM EDT) P athologist Signature LMWH Level 0.58 IU/mL [facility] LABORATORY Comment: Guidelines for therapeutic low molecular weight heparin levels for the various formulations available in the [place] are sum marized below. ??Low molecular weight heparin (Anti-Xa) levels should be deter mined in a plasma sample that has been drawn approximately 3-5 hours after a do se of LMWH and after steady-state has been reached. DRUG ?Dos ing Schedule ?Target Peak Steady-State ?Low Mol Wt Heparin (Anti-Xa) Levels (Units/mL) Enoxaparin ?Twice james ly ?0.6-1.0 Enoxararin ? Once james ly ? Unknown,likely 1.0-1.5 Dalteparin ?Once d aily ? 1.05 Tinzaparin ?Once d aily ? 0.85 Monitoring prophylactic dose LMWH is not routinely performed, thus guidelines for target peak LMWH (anti-Xa) levels ar e not available. Levels between 0.2 and 0.5 u/ml may be appropriate. Note: Most clinical trials in which low molecular weight heparins were used to treat acute venous thrombolism did not u se target anti-Xa levels to guide dosing, hence therapeutic levels have be en determined retrospectively and have not been shown to correlate with drug ef ficacy. Specimen Anatomical Collection Method Collection Time Receive d Time (Source) Location / / Volume Laterality Blood specimen 08/24/2019 9:50 AM 020 9:57 (specimen) EDT AM EDT Resulting Agency Comment Spec In Lab Wagner Hawkins MD HEMATOLOGY ORDERABLES Performing Organization Address City/State/[place] [address] (ABNORMAL) Differential, Automated (08/24/2019 3:40 AM EDT) [facility] Method Time Signature Neutrophils % 59.8 % [facility] LABORATORY Neutr Abs (ANC) 7.50 (H) 1.70 - [facility] 6.10 [facility] x10(3)/[facility] LABORATORY Lymphocytes % 27.6 % [facility] LABORATORY Lymphocytes Abs 3.5 (H) 0.9 - 3.2 [facility] x10(3)/[facility] LABORATORY Monocytes % 7.0 % [facility] LABORATORY Monocyte Abs 0.9 0.3 - 0.9 [facility] x10(3)/[facility] LABORATORY Eosinophils % 4.6 % [facility] LABORATORY Eosinophils Abs 0.6 (H) 0.0 - 0.4 [facility] x10(3)/[facility] LABORATORY Basophils % 0.5 % [facility] LABORATORY Basophils Abs 0.1 0.0 - 0.1 [facility] x10(3)/[facility] LABORATORY Immature Gran % 0.50 % [facility] LABORATORY Comment: Immature granulocytes(IG's)percentage an d absolute count will include metamyelocytes, myelocytes, and promyelo cytes. Blood smears from CBCs yielding IG's will be scanned manually for concor dance. If this scan disagrees with the automated IG or if promyelocytes are not ed, a manual differential will be performed. Angelia Gran Abs 0.06 (H) 0.00 - 0.04 x10(3)/[facility] LABORATORY Specimen Anatomical Collection Method Collection Time Receive d Time (Source) Location / / Volume Laterality Blood specimen 08/24/2019 3:40 AM 020 4:01 (specimen) EDT AM EDT Resulting Agency Comment Spec In Lab Bernardo Brantley MD HEMATOLOGY ORDERABLES Performing Organization Address City/State/[place] [address] (ABNORMAL) Hemogram (08/24/2019 3:40 AM EDT) Analysis Performed At Patho logist Time Signature WBC 12.5 (H) 4.0 - 9.5 [facility] x10(3)/[facility] LABORATORY RBC 4.55 (L) 4.58 - [facility] 5.54 [facility] x10(6)/[facility] LABORATORY Hemoglobin 13.8 13.7 - [facility] 16.5 gm/dL [facility] LABORATORY Hematocrit 41.6 40.5 - [facility] 48.5 % [facility] LABORATORY MCV 91.4 82.9 - [facility] 93.1 [facility] LABORATORY MCH 30.3 27.5 - [facility] 32.1 pg [facility] LABORATORY MCHC 33.2 32.0 - [facility] 35.7 gm/dL [facility] LABORATORY Platelets 205 145 - [facility](3[facility] LABORATORY RDWSD 44.5 36.0 - [facility] 45.0 [facility] LABORATORY RDWCV 13.4 11.4 - [facility] 13.8 % [facility] LABORATORY MPV 11.1 7.6 - 12.9 [facility] [employer] [facility] LABORATORY nRBC % Auto 0.0 % [facility] LABORATORY nRBC Abs Auto 0.000 0.000 - [facility]RI 0.000 [facility] x10(3)/[facility] LABORATORY Specimen Anatomical Collection Method Collection Time Receive d Time (Source) Location / / Volume Laterality Blood specimen 08/24/2019 3:40 AM 020 4:01 (specimen) EDT AM EDT Resulting Agency Comment Spec In Lab Bernardo Brantley MD HEMATOLOGY ORDERABLES Performing Organization Address City/State/ZIP Code Phon e Number [address] Magnesium (08/24/2019 3:40 AM EDT) P athologist Signature Magnesium 0.91 0.69 - 1.07 [facility] mmol/L [facility] LABORATORY Specimen Anatomical Collection Method Collection Time Receive d Time (Source) Location / / Volume Laterality Blood specimen 08/24/2019 3:40 AM 020 4:01 (specimen) EDT AM EDT Resulting Agency Comment Spec In Lab Wagner Hawkins MD CHEMISTRY ORDERABLES Performing Organization Address City/State/[place] [address] (ABNORMAL) BMP w/fasting Glucose (08/24/2019 3:40 AM EDT) athologist Signature Glucose 116 (H) 65 - 99 [facility] Fasting mg/dL [facility] LABORATORY Comment: ?Fasting* Glucose Interpretive C riteria Normal ?65-99 mg/dL Impaired Fasting glucose ?100-125 mg/dL Consistent with Diabetes Mellitus ? >or= 126 mg/dL *Fasting is defined as no caloric intake for at least 8 hours In the absence of unequivocal hypergly cemia a plasma glucose value of >or= 126 mg/dL should be repeated on a subseq uent day. Diagnosis and Classification of Diabetes Mellitus, Position Statement from the [place] [employer]. ??Diabete s Care, Volume 33, Supplement 1, Apr 2009 BUN 23 (H) 10 - 20 mg/dL [facility] LABORATORY Creatinine 1.01 0.80 - 1.50 mg/dL [facility] LABORATORY Sodium 142 135 - 145 mmol/L [facility] LABORATORY Potassium 3.7 3.5 - 5.0 mmol/L [facility] LABORATORY Comment: Please note: ??Patients with WBC >100,00 0 may have falsely elevated Potassium levels. ??For accurate Potassium quantif ication in these patients send serum separator tube (gold top) for subsequent determinations. ??Contact the Clinical Chemistry Laboratory if there are any qu estions. Chloride 107 98 - 107 mmol/L [facility] LABORATORY CO2 22 22 - 31 mmol/L [facility] LABORATORY Anion Gap 13 5 - 15 mmol/L [facility] LABORATORY Calcium 9.1 8.5 - 10.5 mg/dL [facility] LABORATORY Estimated GFR 85 >=60 mL/min/1.73 m?? [facility] LABORATORY Comment: The eGFR was calculated using the CKD-EP I equation. As with all creatinine based estimates of kidney function, eGFR values calculated with the CKD-EPI equation are not accurate in patients wi th acute kidney failure, extremes of body mass or the acutely ill. [email or web address] eGFR 99 >=60 mL/min/1.73 m?? [facility] LABORATORY Comment: The eGFR was calculated using the CKD-EP I equation. As with all creatinine based estimates of kidney function, eGFR values calculated with the CKD-EPI equation are not accurate in patients wi th acute kidney failure, extremes of body mass or the acutely ill. [email or web address] Specimen Anatomical Collection Method Collection Time Receive d Time (Source) Location / / Volume Laterality Blood specimen 08/24/2019 3:40 AM 020 4:01 (specimen) EDT AM EDT Resulting Agency Comment Spec In Lab Wagner Hawkins MD CHEMISTRY ORDERABLES Performing Organization Address City/State/[place] [address] ECHOCARDIOGRAM COMPLETE W CONTRAST (08/23/2019 12:03 PM EDT) Specimen (Source) Anatomical Location Collection Method / Collectio n Time Received Time / Laterality Volume 08/23/2019 Narrative [facility] - 08/23/2019 12:42 PM ED T Procedure: ?Transthoracic Echocardiogram Patient: ?BENJAMIN ORELLANA ?(Age): 1965(53y) Med Rec#: ? [id number] ?Sex: ?M ? Site Loc: ? [facility] ?Ht / Wt: ??180(cm)/180(kg) Pt. Loc: ?CCU ? BSA: ?2.82 Study Date: ?? 08/23/2019 ?Pt. Type: Inpatient Tape: ? Referring: HUNTER PAZ J Reading: Tomas Coyne ([id number]) Clinical Staff Educator: Jayy Singletary KARIN Diagnosis: *Complication of other artery following a procedure, not elsewhere classified, initial encounter (T81.718A) *Other pulmonary embolism without acute cor pulmonale (I26.99) BP: ? 124/56 SUMMARY: 1. Technically limited study. 2. The left ventricular chamber size is normal. ??Mild concentric left ventricular hypertrophy is observed. ??G lobal left ventricular wall motion and contractility are probably wi thin normal limits. ??There is normal global left ventricular systolic function. ??The quantitative left ventricular ejection fraction by biplane Pradhan's method is 56%. 3. The right ventricle is not well visua lized but appears at least moderately dilated. Right ventricular gl obal systolic function is moderately reduced. Septal motion is con sistent with pressure overload. The free wall of the right ventricle elfego ears hypokinetic. The estimated pulmonary artery systolic pressure is 55 mmHg. + right atrial pressure. 4. The left atrium is normal in size. ?? The right atrium is mildly dilated. 5. There is no hemodynamically significa nt valve disease. 6. See remainder of report for additiona l findings. Findings ? : Study Quality: ? Technically limited Left Ventricle: ? The left ventricul ar chamber size is normal. ?Mild concentric left ventricular h ypertrophy is observed. ?There is no evidence of LVOT obstr uction. ?No ventricular septal defect is vi sualized. ?Global left ventricular wall motio n and contractility are probably within normal limits. ?There is normal global left ventri cular systolic function. ?The quantitative left ventricular ejection fraction by biplane Pradhan's method is 56%. ?Assessment of diastolic function i s indeterminate. ?The left ventricular diastolic paul ling pattern is consistent with impaired LV relaxation. ?Left sided filling pressure could not be assessed by Doppler. Left Atrium: ? The left atrium is no rmal in size. Right Ventricle: ? The right ventric le is moderately dilated. ?Right ventricular global systolic function is moderately reduced. ?The free wall of the right ventric le appears hypokinetic. ?Septal motion is consistent with R V pressure overload. ?There is evidence of moderate pulm onary hypertension. ?The estimated pulmonary artery sys tolic pressure is 55 mmHg.+ right atrial pressure. ?? Right Atrium: ? The right atrium is [...] normal in structure and function. ?There is mild (1+/4+) tricuspid re gurgitation present.contrast-enhanced. Pulmonic Valve: ? The pulmonic valve appears [...] normal. Venous: ? The inferior vena cava is poorly visualized. Misc: ? There is no hemodynamically significant valve disease. ?See remainder of report for additi onal findings. ?Two-dimensional echo, spectral Dop pler and color Doppler performed. ?Definity contrast (one 1.5 ml vial )was used to enhance endocardial definition. Excess contrast was discarde d. Chambers 2D ?Value ?Units (Range) ? IVSd (2D) ? 1.36 ? cm ? LVPWd (2D) ?1.36 ? cm ? IVS:LVPW ratio (2D) 1 ?ratio ? RWT (2D) ?0.57 ? ratio ? RWT PW (2D) ? 0.57 ? ratio ? LVIDd (2D) ?4.77 ? cm ? LVIDs (2D) ?3.42 ? cm ? LVIDd (2D) index ?1.69 ? cm/m2 ? LVIDs (2D) index ?1.21 ? cm/m2 ? LV FS (2D) ?28.3 ? % ? EF Teichholz (2D) ?? 54.59 ?% ? Ao root diameter (2D3.4 ?cm (2.1 - 3.6) ? Ascending Ao ?3.5 ?cm (2 - 3.5) ? Volumes/Mass ?Value ?Units (Range) ? LA Area 4 CH ?22 ? cm2 (<21) ? RA AREA 4CH ? 24 ? cm2 ? LA ESV BP (MOD) inde18.7 ? ml/m2 ? LV ESV SP 4CH (MOD) 53.7 ? ml ? LV ESV SP 2CH (MOD) 55.3 ? ml ? LV EDV BP ? 123 ?ml ? LV ESV BP ? 54 ? ml ? LV EDV BP index ? 43.65 ?ml/m2 ? LV ESV BP index ? 19.16 ?ml/m2 ? BP EF (MOD) ? 56.1 ? % ? LV mass (2D) ?259.9 ?g ? LV mass (2D) index ??92.23 ?g/m2 ? Diastolic/Systolic Function ?Value ?Units (Range) ? MV E-wave Vmax ?0.59 ? m/sec ? MV deceleration [id number] ?msec ? MV A-wave Vmax ?0.7 ?m/sec ? MV E:A ratio ?0.84 ? ratio ? LV septal e' Vmax ?? 0.04 ? m/sec ? LV lateral e' Vmax ??0.1 ?m/sec ? LV average e' Vmax ??0.07 ? m/sec ? LV E:e' septal ratio14.75 ? ratio ? LV E:e' lateral rati5.9 ?ratio ? LV average E:e' rati8.43 ? ratio ? Tricuspid Valve ?Value ?Units (Range) ? TR Vmax ? 3.69 ? m/sec ? TR peak gradient ?54.46 ?mmHg ? RVSP ?55 ? mmHg ? Wall Motion: Segment Name ?Rest ? Base-Anteroseptal ?? Normal ? Base-Anterior ? Normal ? Base-Anterolateral ??Normal ? Base-Posterolateral Normal ? Base-Inferior ? Normal ? Base-Inferoseptal ?? Normal ? Mid-Anteroseptal ?Normal ? Mid-Anterior ?Normal ? Mid-Anterolateral ?? Normal ? Mid-Posterolateral ??Normal ? Mid-Inferior ?Normal ? Mid-Inferoseptal ?Normal ? [place]-Septal ? Normal ? [place]-Anterior ? Normal ? [place]-Lateral ?Normal ? [place]-Inferior ? Normal ? [place]-Tip ?Normal ? This report has been electronically sign ed by: _ Tomas Coyne MD ? 08/23/2019 12:42:23 Images reviewed [facility] interpretation [facility] Procedure Note Tomas Coyne MD - 08/23/2019Form atting of this note might be different from the original. Procedure: Transthoracic Echocardiogram Patient: BENJAMIN RODRIGUEZ(Age): 1965(53y) Med Rec#: [id number] Sex: M Site Loc: [facility] Ht / Wt: 180(cm)/180(kg) Pt. Loc: [facility] BSA: 2.82 Study Date: 08/23/2019 Pt. Type: Inpatie nt Tape: Referring: HUNTER PAZ J Reading: Tomas Coyne ([id number]) Clinical Staff Educator: Jayy Singletary [facility] Diagnosis: *Complication of other artery following a procedure, not elsewhere classified, initial encounter (T80.838Z) *Other pulmonary embolism without acute cor pulmonale (I26.99) BP: 124/56 SUMMARY: 1. Technically limited study. 2. The left ventricular chamber size is normal. Mild concentric left ventricular hypertrophy is observed. Stephania bal left ventricular wall motion and contractility are probably wi thin normal limits. There is normal global left ventricular systolic function. The quantitative left ventricular ejection fraction by biplane Pradhan's method is 56%. 3. The right ventricle is not well visua lized but appears at least moderately dilated. Right ventricular gl obal systolic function is moderately reduced. Septal motion is con sistent with pressure overload. The free wall of the right ventricle elfego ears hypokinetic. The estimated pulmonary artery systolic pressure is 55 mmHg. + right atrial pressure. 4. The left atrium is normal in size. Th e right atrium is mildly dilated. 5. There is no hemodynamically significa nt valve disease. 6. See remainder of report for additiona l findings. Findings : Study Quality: Technically limited Left Ventricle: The left ventricular sun mber size is normal. Mild concentric left ventricular hypert rophy is observed. There is no evidence of LVOT obstructio n. No ventricular septal defect is visuali zed. Global left ventricular wall motion and contractility are probably within normal limits. There is normal global left ventricular systolic function. The quantitative left ventricular eject ion fraction by biplane Pradhan's method is 56%. Assessment of diastolic function is ind eterminate. The left ventricular diastolic filling pattern is consistent with impaired LV relaxation. Left sided filling pressure could not b e assessed by Doppler. Left Atrium: The left atrium is normal i n size. Right Ventricle: The right ventricle is moderately dilated. Right ventricular global systolic funct ion is moderately reduced. The free wall of the right ventricle ap pears hypokinetic. Septal motion is consistent with RV pre ssure overload. There is evidence of moderate pulmonary hypertension. The estimated pulmonary artery systolic pressure is 55 mmHg.+ right atrial pressure. Right Atrium: The right atrium is mildly [...] normal in structure and function. There is mild (1+/4+) tricuspid regurgi tation present.contrast-enhanced. Pulmonic Valve: The pulmonic valve appea rs [...] appears normal. Venous: The inferior vena cava is poorly visualized. Misc: There is no hemodynamically signif icant valve disease. See remainder of report for additional findings. Two-dimensional echo, spectral Doppler and color Doppler performed. Definity contrast (one 1.5 ml vial)was used to enhance endocardial definition. Excess contrast was discarde d. Chambers 2D Value Units (Range) IVSd (2D) 1.36 cm LVPWd (2D) 1.36 cm IVS:LVPW ratio (2D) 1 ratio RWT (2D) 0.57 ratio RWT PW (2D) 0.57 ratio LVIDd (2D) 4.77 cm LVIDs (2D) 3.42 cm LVIDd (2D) index 1.69 cm/m2 LVIDs (2D) index 1.21 cm/m2 LV FS (2D) 28.3 % EF Teichholz (2D) 54.59 % Ao root diameter (2D3.4 cm (2.1 - 3.6) Ascending Ao 3.5 cm (2 - 3.5) Volumes/Mass Value Units (Range) LA Area 4 CH 22 cm2 (<21) RA AREA 4CH 24 cm2 LA ESV BP (MOD) inde18.7 ml/m2 LV ESV SP 4CH (MOD) 53.7 ml LV ESV SP 2CH (MOD) 55.3 ml LV EDV BP 123 ml LV ESV BP 54 ml LV EDV BP index 43.65 ml/m2 LV ESV BP index 19.16 ml/m2 BP EF (MOD) 56.1 % LV mass (2D) 259.9 g LV mass (2D) index 92.23 g/m2 Diastolic/Systolic Function Value Units (Range) MV E-wave Vmax 0.59 m/sec MV deceleration [id number] msec MV A-wave Vmax 0.7 m/sec MV E:A ratio 0.84 ratio LV septal e' Vmax 0.04 m/sec LV lateral e' Vmax 0.1 m/sec LV average e' Vmax 0.07 m/sec LV E:e' septal ratio14.75 ratio LV E:e' lateral rati5.9 ratio LV average E:e' rati8.43 ratio Tricuspid Valve Value Units (Range) TR Vmax 3.69 m/sec TR peak gradient 54.46 mmHg RVSP 55 mmHg Wall Motion: Segment Name Rest Base-Anteroseptal Normal Base-Anterior Normal Base-Anterolateral Normal Base-Posterolateral Normal Base-Inferior Normal Base-Inferoseptal Normal Mid-Anteroseptal Normal Mid-Anterior Normal Mid-Anterolateral Normal Mid-Posterolateral Normal Mid-Inferior Normal Mid-Inferoseptal Normal [place]-Septal Normal [place]-Anterior Normal [place]-Lateral Normal [place]-Inferior Normal [place]-Tip Normal This report has been electronically sign ed by: _ Tomas Coyne MD 08/23/2019 12:42: 23 Images reviewed and interpretation verif ied [facility] Cardiac Ultrasound Laboratory Wagner Hawkins MD ECHO ORDERABLES Performing Organization Address City/State/ZIP Code Phon e Number [facility] (ABNORMAL) Differential, Automated (08/23/2019 3:40 AM EDT) [facility] Method Time Signature Neutrophils % 63.9 % [facility] LABORATORY Neutr Abs (ANC) 9.28 (H) 1.70 - [facility] 6.10 [facility] x10(3)/[facility] L LABORATORY Lymphocytes % 25.2 % [facility] LABORATORY Lymphocytes Abs 3.7 (H) 0.9 - 3.2 [facility] x10(3)/[facility] LABORATORY Monocytes % 7.9 % [facility] LABORATORY Monocyte Abs 1.1 (H) 0.3 - 0.9 [facility] x10(3)/[facility] LABORATORY Eosinophils % 1.9 % [facility] LABORATORY Eosinophils Abs 0.3 0.0 - 0.4 [facility] x10(3)/[facility] LABORATORY Basophils % 0.5 % [facility] LABORATORY Basophils Abs 0.1 0.0 - 0.1 [facility] x10(3)/[facility] LABORATORY Immature Gran % 0.60 % [facility] LABORATORY Comment: Immature granulocytes(IG's)percentage an d absolute count will include metamyelocytes, myelocytes, and promyelo cytes. Blood smears from CBCs yielding IG's will be scanned manually for conctamia dansimone. If this scan disagrees with the automated IG or if promyelocytes are not ed, a manual differential will be performed. Angelia Gran Abs 0.09 (H) 0.00 - 0.04 x10(3)/[facility] LABORATORY Specimen Anatomical Collection Method Collection Time Receive d Time (Source) Location / / Volume Laterality Blood specimen 08/23/2019 3:40 AM 020 3:55 (specimen) EDT AM EDT Resulting Agency Comment Spec In Lab Bernardo Brantley MD HEMATOLOGY ORDERABLES Performing Organization Address City/State/[place] [address] (ABNORMAL) Hemogram (08/23/2019 3:40 AM EDT) Analysis Performed At Patho logist Time Signature WBC 14.5 (H) 4.0 - 9.5 [facility] x10(3)/[facility] LABORATORY RBC 4.64 4.58 - [facility] 5.54 [facility] x10(6)/[facility] LABORATORY Hemoglobin 14.3 13.7 [facility] 16[facility] gm/dL [facility] LABORATORY Hematocrit 41.8 40.5 - [facility] 48.5 % [facility] LABORATORY MCV 90.1 82.9 - [facility] 93.1 [facility] LABORATORY MCH 30.8 27.5 - [facility] 32.1 pg [facility] LABORATORY MCHC 34.2 32.0 - [facility] 35.7 gm/dL [facility] LABORATORY Platelets 207 145 - 357 [facility] x10(3)/[facility] LABORATORY RDWSD 43.7 36.0 - [facility] 45.0 [facility] LABORATORY RDWCV 13.4 11.[address] [facility] 13.8 % [facility] MPV 11.2 7.6 - 12.9 [facility] fL [facility] LABORATORY nRBC % Auto 0.0 % [facility] LABORATORY nRBC Abs Auto 0.000 0.000 - [facility] 0.000 [facility] x10(3)/[facility] LABORATORY Specimen Anatomical Collection Method Collection Time Receive d Time (Source) Location / / Volume Laterality Blood specimen 08/23/2019 3:40 AM 020 3:55 (specimen) EDT AM EDT Resulting Agency Comment Spec In Lab Bernardo Brantley MD HEMATOLOGY ORDERABLES Performing Organization Address City/State/ZIP Code Phon e Number [address] Magnesium (08/23/2019 3:40 AM EDT) P athologist Signature Magnesium 0.86 0.69 - 1.07 [facility] mmol/L [facility] LABORATORY Specimen Anatomical Collection Method Collection Time Receive d Time (Source) Location / / Volume Laterality Blood specimen 08/23/2019 3:40 AM 020 3:55 (specimen) EDT AM EDT Resulting Agency Comment Spec In Lab Wagner Hawkins MD CHEMISTRY ORDERABLES Performing Organization Address City/[facility]/ZIP Code Phon e Number [address] (ABNORMAL) BMP w/fasting Glucose (08/23/2019 3:40 AM EDT) P athologist Signature Glucose 127 (H) 65 - [facility] F[facility]/dL [facility] Comment: ?Fasting* Glucose Interpretive C riteria Normal ?65-99 mg/dL Impaired Fasting glucose ?100-125 mg/dL Consistent with Diabetes Mellitus ? >or= 126 mg/dL *Fasting is defined as no caloric intake for at least 8 hours In the absence of unequivocal hypergly cemia a plasma glucose value of >or= 126 mg/dL should be repeated on a subseq uent day. Diagnosis and Classification of Diabetes Mellitus, Position Statement from the [place] [employer]. ??Diabete s Care, Volume 33, Supplement 1, Apr 2009 BUN 23 (H) 10 - 20 mg/dL [facility]ORATORY Creatinine 0.98 0.80 - 1.50 mg/dL [facility] LABORAT[facility] Sodium 142 135 - 145 mmol/L [facility]ORATORY Potassium 3.7 3.5 - 5.0 mmol/L [facility] Comment: Please note: ??Patients with WBC >100,00 0 may have falsely elevated Potassium levels. ??For accurate Potassium quantif ication in these patients send serum separator tube (gold top) for subsequent determinations. ??Contact the Clinical Chemistry Laboratory if there are any qu estions. Chloride 106 98 - 107 mmol/L [facility] CO2 23 22 - 31 mmol/L [facility] Anion Gap 13 5 - 15 mmol/L [facility] Calcium 9.2 8.5 - 10.5 mg/dL [facility] Estimated GFR 88 >=60 mL/min/1.73 m?? [facility] Comment: The eGFR was calculated using the CKD-EP I equation. As with all creatinine based estimates of kidney function, eGFR values calculated with the CKD-EPI equation are not accurate in patients wi th acute kidney failure, extremes of body mass or the acutely ill. [email or web address] – [email or web address] eGFR 102 >=60 mL/min/1.73 m?? [facility] Comment: The eGFR was calculated using the CKD-EP I equation. As with all creatinine based estimates of kidney function, eGFR values calculated with the CKD-EPI equation are not accurate in patients wi th acute kidney failure, extremes of body mass or the acutely ill. [email or web address] Specimen Anatomical Collection Method Collection Time Receive d Time (Source) Location / / Volume Laterality Blood specimen 08/23/2019 3:40 AM 020 3:55 (specimen) EDT AM EDT Resulting Agency Comment Spec In Lab Wagner Hawkins MD CHEMISTRY ORDERABLES Performing Organization Address City/[facility]/ZIP Code Phon e Number [address] (ABNORMAL) Glucose, fasting (08/23/2019 3:40 AM EDT) P athologist Signature Glucose 127 (H) 65 - 99 [facility] Fasting mg/dL [facility] Comment: ?Fasting* Glucose Interpretive C riteria Normal ?65-99 mg/dL Impaired Fasting glucose ?100-125 mg/dL Consistent with Diabetes Mellitus ? >or= 126 mg/dL *Fasting is defined as no caloric intake for at least 8 hours In the absence of unequivocal hypergly cemia a plasma glucose value of >or= 126 mg/dL should be repeated on a subseq uent day. Diagnosis and Classification of Diabetes Mellitus, Position Statement from the [place] [employer]. ??Diabete s Care, Volume 33, Supplement 1, Apr 2009 Specimen Anatomical Collection Method Collection Time Receive d Time (Source) Location / / Volume Laterality Blood specimen 08/23/2019 3:40 AM 020 3:55 (specimen) EDT AM EDT Resulting Agency Comment Spec In Lab Wagner Hawkins MD CHEMISTRY ORDERABLES Performing Organization Address City/[facility]/ZIP Code Phon e Number [address] Triglyceride (08/23/2019 3:40 AM EDT) P athologist Signature Triglycerides 142 mg/dL [facility] Comment: Average Risk/Lower Risk: <150 mg/dL Borderline High Risk: 150-199 mg/dL High Risk: 200-499 mg/dL Very High Risk: >vi=742 mg/dL Specimen Anatomical Collection Method Collection Time Receive d Time (Source) Location / / Volume Laterality Blood specimen 08/23/2019 3:40 AM 020 3:55 (specimen) EDT AM EDT Resulting Agency Comment Spec In Lab Wagner Hawkins MD CHEMISTRY ORDERABLES Performing Organization Address City/State/[place] [address] HDL/Cholesterol Profile (08/23/2019 3:40 AM EDT) P athologist Signature Chol, Total 145 mg/dL [facility] Comment: Lower Risk: <200 mg/dL Average Risk: 200-239 mg/dL Higher Risk: >un=846 mg/dL HDL 24 mg/dL [facility] Comment: Males: ?? Higher Risk: <40 mg/dL Females: ?? HIgher Risk: <50 mg/dL Chol/HDL Ratio 6.0 ratio [facility] Chol/HDL Interpretation See Note [facility] LABORATORY Comment: Lipid management should be guided by a p atient? s ASCVD risk, goals and preferences. ACC/AHA Guidelines recommend high intens ity statin if clinical ASCVD or LDL greater than or equal to 190 mg/dL. [email or web address] Measure LDL if Total Cholesterol minus H DL Cholesterol is greater than 220 mg/dL. Adults aged 40-75 with LDL 70-189 mg/dL should have their 10 year ASCVD risk estimated with the ACC/AHA ASCVD risk es timator http://tools.acc.org/OUBDG-Qvty-Ydvepthp r/ Statin should be discussed if risk great er than or equal to 7.5% in non-diabetics. With diabetes, moderate i ntensity statin is recommended if risk less than 7.5%, high intensity if risk g reater than or equal to 7.5%. Annual lipid monitoring on statins is no t necessary. Lifestyle modification is a critical com ponent of ASCVD risk reduction. Specimen Anatomical Collection Method Collection Time Receive d Time (Source) Location / / Volume Laterality Blood specimen 08/23/2019 3:40 AM 020 3:55 (specimen) EDT AM EDT Resulting Agency Comment Spec In Lab Wagner Hawkins MD CHEMISTRY ORDERABLES Performing Organization Address City/State/ZIP Code Phon e Number [address] LDL Cholesterol, Direct (08/23/2019 3:40 AM EDT) P athologist Signature LDL Chol 106 mg/dL [facility] LABORATORY Comment: Lowest Risk: <100 mg/dL Lower Risk: 100-129 mg/dL Borderline High Risk: 130-159 mg/dL High Risk: 160-189 mg/dL Very High Risk: >ab=182 mg/dL Specimen Anatomical Collection Method Collection Time Receive d Time (Source) Location / / Volume Laterality Blood specimen 08/23/2019 3:40 AM 020 3:55 (specimen) EDT AM EDT Resulting Agency Comment Spec In Lab Wagner Hawkins MD CHEMISTRY ORDERABLES Performing Organization Address City/State/ZIP Code Phon e Number [address] (ABNORMAL) Hemoglobin A1c (08/23/2019 3:40 AM EDT) Analysis Performed At Patho logist Time Signature Hemoglobin A1C 5.8 (H) 4.3 - 5.6 [facility] LABORATORY Comment: Reference Range: 4.3 - 5.6% 5.7 - 6.4% - Increased Risk of Developin g Diabetes Mellitus >= 6.5% - Consistent with diagnosis of D iabetes Mellitus In the absence of hyperglycemia (i.e. pl asma glucose > 200 mg/dL) or classic symptoms of hyperglycemia a repeat measu rement of HbA1c should be performed on a separate sample to confirm the diagnos is. Diagnosis and Classification of Diabetes Mellitus, Diabetes Care 2013; 36: Suppl. 1, V97-60 Est Avg Gluc 121 mg/dL [facility]AT[facility] Comment: eAG equivalents for HbA1c percentages: HbA1c(%) ?eAG(mg/dL) 6.0 ?126 6.5 ?140 7.0 ?154 7.5 ?169 8.0 ?183 8.5 ?197 9.0 ?212 9.5 ?226 10.0 ? 240 Limitations: The eAG calculation has not been validated on women, individuals below 18 years old and above 70 years old, and individuals with hemoglobinopathies. Additional resources are available on [facility] ADA website. Porfirio SALEH, Loan J, Sita R, et al. ??Tr anslating the A1C assay into estimated average glucose values. ??Diabetes Care 2008:31(8):7430-3257. Specimen Anatomical Collection Method Collection Time Receive d Time (Source) Location / / Volume Laterality Blood specimen 08/23/2019 3:40 AM 020 3:55 (specimen) EDT AM EDT Resulting Agency Comment Spec In Lab Wagner Hawkins MD CHEMISTRY ORDERABLES Performing Organization Address City/State/[place] [address] Respiratory Panel PCR (08/22/2019 7:15 PM EDT) Analysis Performed At Patho logist Time Signature Resp Panel [facility] Swab [facility] LABORATORY Resp Panel PCR Negative Negative [facility] Comment: Respiratory Panels are performed on the wumo, using multiplexed PCR nucleic acid detection. ??Negative resul ts do not preclude respiratory infection and should not be used as the sole basis for diagnosis, treatment or other management decisions. Adenovirus Not Detected Not Detected [facility] Coronavirus HKU1 Not Detected Not Detected [facility] Coronavirus NL63 Not Detected Not Detected [facility] Coronavirus 229E Not Detected Not Detected [facility] Coronavirus OC43 Not Detected Not Detected [facility] Human Metapneumovirus Not Detected Not Detected [facility] Human Rhino/Enterovirus Not Detected Not Detected [facility] Influenza A Not Detected Not Detected [facility] Influenza B Not Detected Not Detected [facility] Parainfluenza 1 Not Detected Not Detected [facility] Parainfluenza 2 Not Detected Not Detected [facility] Parainfluenza 3 Not Detected Not Detected [facility] Parainfluenza 4 Not Detected Not Detected [facility] Respiratory Syncytial Virus Not Detected Not Detected [facility] Chlamydophila pneumoniae Not Detected Not Detected [facility] Mycoplasma pneumoniae Not Detected Not Detected [facility] Specimen (Source) Anatomical Collection Method Collection Time Re ceived Time Location / / Volume Laterality Nasopharyngeal swab Other / Unknown 08/22/2019 7:15 (specimen) PM EDT 7:15 PM EDT Resulting Agency Comment Spec In Lab Wagner Hawkins MD MICROBIOLOGY - GENERAL ORDER GUILLERMO Performing Organization Address City/[facility] [place] [address] EKG 12 Lead (08/22/2019 6:42 PM EDT) Component Value Ref Range Test Analysis Performed Patholog t Method Time At [facility] Ventricular rate 78 BPM MUSE SYSTEM Atrial Rate 78 BPM MUSE SYSTEM P-R Interval 150 ms MUSE SYSTEM QRS Duration 98 ms MUSE SYSTEM Q-T Interval 458 ms MUSE SYSTEM QTC Calculated 522 ms MUSE SYSTEM (Bezet) Calculated P [place] 45 degrees MUSE SYSTEM Calculated R [place] -66 degrees MUSE SYSTEM Calculated T [place] -41 degrees MUSE SYSTEM INTERPRETATION Normal sinus rhythm MUSE SYSTEM Left axis deviation T wave abnormality, consider anterolateral ischemia Prolonged QT Abnormal ECG No previous ECGs available Confirmed by MD Keisha, Esteban Norman ([id number]) on 08/28/2019 9:17:18 AM Specimen Anatomical Collection Method Collection Time Receive d Time (Source) Location / / Volume Laterality 08/22/2019 6:42 PM 0 9:17 EDT AM EDT Wagner Hawkins MD ECG ORDERABLES Performing Organization Address [facility]/ZIP [facility] Phon e Number MUSE SYSTEM (ABNORMAL) Differential, Automated (08/22/2019 6:35 PM EDT) Patholo gist Method Time Signature Neutrophils % 77.9 % [facility] Neutr Abs (ANC) 14.65 (H) 1.70 - [facility] 6.10 [facility] x10(3)/[facility] LABORATORY Lymphocytes % 14.5 % [facility] Lymphocytes Abs 2.7 0.9 - 3.2 [facility] x10(3)/[facility] LABORATORY Monocytes % 6.5 % [facility] Monocyte Abs 1.2 (H) 0.3 - 0.9 [facility] x10(3)/[facility] LABORATORY Eosinophils % 0.2 % [facility] Eosinophils Abs 0.0 0.0 - 0.4 [facility] x10(3)/[facility] LABORATORY Basophils % 0.2 % [facility] Basophils Abs 0.0 0.0 - 0.1 [facility] x10(3)/[facility] LABORATORY Immature Gran % 0.70 % [facility] Comment: Immature granulocytes(IG's)percentage an d absolute count will include metamyelocytes, myelocytes, and promyelo cytes. Blood smears from CBCs yielding IG's will be scanned manually for concor dance. If this scan disagrees with the automated IG or if promyelocytes are not ed, a manual differential will be performed. Angelia Gran Abs 0.13 (H) 0.00 - 0.04 x10(3)/[facility] LABORATORY Specimen Anatomical Collection Method Collection Time Receive d Time (Source) Location / / Volume Laterality Blood specimen 08/22/2019 6:35 PM 020 6:39 (specimen) EDT PM EDT Resulting Agency Comment Spec In Lab Jh Padron MD HEMATOLOGY ORDERABLES Performing Organization Address City/State/[place] [address] (ABNORMAL) Hemogram (08/22/2019 6:35 PM EDT) Analysis Performed At [facility] logist Time Signature WBC 18.8 (H) 4.0 - 9.5 [facility] x10(3)/[facility] LABORATORY RBC 5.23 4.[address] [facility]54 [facility] x10(6)/[facility] LABORATORY Hemoglobin 16.2 13.7 - [facility] 16.5 gm/dL [facility] LABORATORY Hematocrit 46.6 40.5 - [facility] 48.5 % [facility] LABORATORY MCV 89.1 82.9 [facility] 93.1 [facility] LABORATORY MCH 31.0 27.5 - [facility] 32.1 pg [facility] LABORATORY MCHC 34.8 32.0 - [facility] 35.7 gm/dL [facility] Platelets 244 145 - 357 [facility] x10(3)/[facility] LABORATORY RDWSD 43.3 36.[address] [facility] 45.0 [facility] LABORATORY RDWCV 13.5 11.4 [facility] 13.8 % [facility] LABORATORY MPV 10.8 7.6 - 12.9 [facility] LABORATORY nRBC % Auto 0.0 % [facility]AT[facility] nRBC Abs Auto 0.000 0.000 - [facility] 0[facility]000 [facility] x10(3)/[facility] LABORATORY Specimen Anatomical Collection Method Collection Time Receive d Time (Source) Location / / Volume Laterality Blood specimen 08/22/2019 6:35 PM 020 6:39 (specimen) EDT PM EDT Resulting Agency Comment Spec In Lab Jh Padron MD HEMATOLOGY ORDERABLES Performing Organization Address City/State/[place] [address] (ABNORMAL) Troponin (08/22/2019 6:35 PM EDT) P athologist Signature Troponin-T 0.03 (H) 0.00 - [facility] 0.00 ng/mL [facility] LAB[facility]ORY Comment: The 99th percentile for Troponin T is le ss than 0.01 ng/mL, any detectable cTnT concentration using this assay should be considered elevated. According to the third universal definit ion of myocardial infarction the following criteria with a clinical prese ntation consistent with acute myocardial ischemia meets the diagnosis for a myocardial infarction (HI). Detection of a rise and/or fall of cTnT, with at least one value greater than the 99th percentile (> or = 0.01) and wi th at least one of the following ?? Symptoms of ischemia ?? New or presumed new significant ST-se gment-T wave (ST-T) changes or new left bundle branch block (LBBB) ?? Development of pathologic Q waves in the ECG ?? Imaging evidence of new loss of viabl e myocardium or new regional wall motion abnormality ?? Identification of an intracoronary th rombus by angiography or autopsy Samples for cTnT testing should be obtai rita serially upon first assessment and again 3 to 6 hours later. If the clinica l suspicion is high and previous samples have been negative an additional sample may be indicated. Reference: Third [place] Definition of Myocardial Infarction. Journal of the [place] [employer] 2012;60:1581-98 Specimen Anatomical Collection Method Collection Time Receive d Time (Source) Location / / Volume Laterality Blood specimen 08/22/2019 6:35 PM 020 6:39 (specimen) EDT PM EDT Resulting Agency Comment Spec In Lab Wagner Hawkins MD CHEMISTRY ORDERABLES Performing Organization Address City/State/[place] [address] (ABNORMAL) Hepatic Function Panel (08/22/2019 6:35 PM EDT) P athologist Signature Total Protein 7.9 6.1 - 8.0 [facility] gm/dL [facility] LABORATORY Albumin 3.7 3.2 - 5.2 [facility] gm/dL [facility] LABORATORY AST 49 (H) 0 - 39 [facility] unit/L [facility] LABORATORY ALT 63 (H) 0 - 55 [facility] unit/L [facility] LABORATORY Alk Phos 66 40 - 130 [facility] unit/L [facility] LABORATORY Total 0.8 0.2 - 1.3 [facility] Bilirubin mg/dL [facility] LABORATORY Bili, Direct 0.2 0.0 - 0.3 [facility] mg/dL [facility] LABORATORY Specimen Anatomical Collection Method Collection Time Receive d Time (Source) Location / / Volume Laterality Blood specimen 08/22/2019 6:35 PM 020 6:39 (specimen) EDT PM EDT Resulting Agency Comment Spec In Lab Wagner Hawkins MD CHEMISTRY ORDERABLES Performing Organization Address City/State/ZIP Code Phon e Number [address] (ABNORMAL) pro-Brain Natriuretic Peptide (08/22/2019 6:35 PM EDT) athologist Signature ProBNP 4,328 (H) <=125 [facility] pg/mL [facility]ATORY Specimen Anatomical Collection Method Collection Time Receive d Time (Source) Location / / Volume Laterality Blood specimen 08/22/2019 6:35 PM 020 6:39 (specimen) EDT PM EDT Resulting Agency Comment Spec In Lab Wagner Hawkins MD CHEMISTRY ORDERABLES Performing Organization Address City/[facility]/ZIP Code Phon e Number [address] (ABNORMAL) Basic Metabolic Panel (non-fasting) (08/22/2019 6:35 PM EDT) athologist Signature Glucose Lvl 147 65 - 199 [facility] mg/dL [facility] Comment: Diabetes: >=200 mg/dL plus symp toms BUN 19 10 - 20 mg/dL [facility] LABORATORY Creatinine 0.97 0.80 - 1.50 mg/dL [facility] Sodium 139 135 - 145 mmol/L [facility]ORATORY Potassium 4.0 3.5 - 5.0 mmol/L [facility]ATORY Comment: Please note: ??Patients with WBC >100,00 0 may have falsely elevated Potassium levels. ??For accurate Potassium quantif ication in these patients send serum separator tube (gold top) for subsequent determinations. ??Contact the Clinical Chemistry Laboratory if there are any qu estions. Chloride 105 98 - 107 mmol/L [facility] CO2 19 (L) 22 - 31 mmol/L [facility] Anion Gap 15 5 - 15 mmol/L [facility] Calcium 9.2 8.5 - 10.5 mg/dL [facility] Estimated GFR 89 >=60 mL/min/1.73 m?? [facility] Comment: The eGFR was calculated using the CKD-EP I equation. As with all creatinine based estimates of kidney function, eGFR values calculated with the CKD-EPI equation are not accurate in patients wi th acute kidney failure, extremes of body mass or the acutely ill. [email or web address] TULSAnkf eGFR 104 >=60 mL/min/1.73 m?? [facility] Comment: The eGFR was calculated using the CKD-EP I equation. As with all creatinine based estimates of kidney function, eGFR values calculated with the CKD-EPI equation are not accurate in patients wi th acute kidney failure, extremes of body mass or the acutely ill. [email or web address] [email or web address] Specimen Anatomical Collection Method Collection Time Receive d Time (Source) Location / / Volume Laterality Blood specimen 08/22/2019 6:35 PM 020 6:39 (specimen) EDT PM EDT Resulting Agency Comment Spec In Lab Wagner Hawkins MD CHEMISTRY ORDERABLES Performing Organization Address City/State/ZIP Code Phon e Number [place] [id number] COVID-19 PCR (08/22/2019 5:32 PM EDT) [facility] Method Time Signature SARS-CoV-2 Not Detected Not Detected [facility] RNA PCR [facility] LABORATORY Comment: This result should be interpreted in com bination with the clinical observations, patient history and epidem iological information. This test is intended for testing of symptomatic tamica ents only. Testing for SARS-CoV-2 (Severe acute respiratory syndrome coron avirus 2, formerly known as 2019 novel coronavirus or 2019-nCoV) to aid in the diagnosis of COVID-19 is performed using the iA COVID-19 Detection Emerge ncy Use Authorization (EUA) Kit. This EUA assay is intended for In-vitro Diagn ostic (IVD) use with respiratory specimens such as nasopharyngeal swabs c ollected from individuals during the acute phase of infection. Testing is per formed in the Clinical Actual [facility] Laboratory within [facility] Department of Pathology and Laboratory Medicine at [facility], certified under the Clinical Laboratory Improvement Amendmen ts of 1988 (CLIA), 42 U.S.C. ?? 263a, to perform high complexity tests. Assay per formance has been verified according to clinical laboratory regulatory requireme nts. Test results are provided above. A resul t of Not Detected indicates that the viral RNA target is not present but does not preclude SARS-CoV-2 infection. False negative results may occur if a sp ecimen is improperly collected, transported or handled; if amplification inhibitors are present; or if inadequate numbers of viral particles ar e present in the specimen. A result of Detected suggests a current or recent infection and the patient is presumed to be infected. As required or requested by public health authorities, positive specimens may be sent for additional hien ting. Positive and negative predictive values for this test are highly dependen t on disease prevalence. A result of Invalid indicates that neither the vir al RNA targets nor the internal control target was detected. An invalid result s uggests the presence of inhibitors. A result of Indeterminate indicates an i nconclusive result that cannot be called detected or not detected. Thi s result may be obtained in samples with low-level virus or unknown interfer ing substances. For both ? Invalid? and ? Indeterminate? results, testing will be reflexed to the standard (non-rapid) SARS-CoV-2 assay with the option for rec ollection. CDC COVID-19 criteria for testing on hum an specimens and clinical management guidance information are available at th e CDC Coronavirus Disease 2019 (COVID-19) webpage under ? Information for Healthcare Professionals? (https://www.cdc.gov/coronavirus/2019-nc ov/hcp/index.html) Additional information about this and ot her EUA tests can be found in provider and patient fact sheets at the following FDA website: https://www.fda.gov/medical-devices/edzfsqhcs-gbpfefyepw-xmnnwbd-devices/emergen yy-lym-ppbobaodvculnp#cwzut98yyn SARS-CoV-2 Source [facility] Swab [facility] Specimen (Source) Anatomical Collection Method Collection Time Re ceived Time Location / / Volume Laterality Nasopharyngeal swab 08/22/2019 5:32 08/21 (specimen) PM EDT 6:26 PM EDT Comment: Specimen Source->Nasopharyngeal Swab Resulting Agency Comment Spec In Lab Wagner Hawkins MD MICROBIOLOGY - GENERAL ORDER GUILLERMO Performing Organization Address City/State/[place] [address] POCT Glucose (08/22/2019 5:30 PM EDT) P athologist Signature POC Glucose 167 65 [phone] 199 [facility] mg/dL [facility] Comment: Supplemental ranges: <140 mg/dL before meals <180 mg/dL all other times of the day Specimen Anatomical Collection Method Collection Time Receive d Time (Source) Location / / Volume Laterality Blood specimen 08/22/2019 5:30 PM 020 5:30 (specimen) EDT PM EDT Wagner Hawkins MD POINT OF CARE TEST ORDERABLE S Performing Organization Address City/State/[place] [address] documented in this encounter Visit Diagnoses Diagnosis Other acute pulmonary embolism without a cute cor pulmonale - Primary Iatrogenic pulmonary embolism, initial e ncounter Other acute pulmonary embolism with acut e cor pulmonale Other acute pulmonary embolism without a cute cor pulmonale documented in this encounter Admitting Diagnoses Diagnosis Pulmonary embolism Other pulmonary embolism and infarction documented in this encounter Administered Medications Inactive Administered Medications - up to 3 most recent administrations Medication Order MAR Action Action Date Dose Rate Site enoxaparin (LOVENOX) injection 180 Given 08/25/2019 5:47 PM EDT 180 mg mg 180 mg (rounded from 180.1 mg = 1 mg/kg/dose ? 180.1 kg), Subcutaneous, EVERY 12 HOURS SCHEDULED (2 times per day), First dose on 08/23/19 at 0500, Until Discontinued, Routine Given 08/25/2019 4:23 AM EDT 180 mg Given 08/24/2019 5:22 PM EDT 180 mg losartan (Cozaar) tablet 25 mg Given 08/25/2019 11:09 AM EDT 25 mg 25 mg, Oral, DAILY, First dose on 08/25/19 at 1100, Until Discontinued, Hold for SBP < 100 mm Hg, Routine magnesium sulfate 2 g in sterile water New Bag 08/23/2019 9:45 AM EDT 2 g 25 mL/hr 50 mL 2 g, Intravenous, ONCE, 1 dose, On 08/23/19 at 0945, Administer over 120 Minutes magnesium sulfate 2 g in sterile water New Bag 08/24/2019 8:43 AM EDT 2 g 25 mL/hr 50 mL 2 g, Intravenous, ONCE, 1 dose, On 08/24/19 at 0645, Administer over 120 Minutes magnesium sulfate 2 g in sterile water New Bag 08/25/2019 8:13 AM EDT 2 g 25 mL/hr 50 mL 2 g, Intravenous, ONCE, 1 dose, On 08/25/19 at 0715, Administer over 120 Minutes perflutren protein-A microspheres (OPTISON) Given 05/2019 11:00 AM EDT 2.5 mLs 0.22 mg/mL injection 0.5 mL 0.5 mL, Intravenous, ONCE PRN, 1 dose, Starting on 08/23/19 at 1204, Until 08/23/19 at 1100, for enhancement of sub-optimal echo images, Echo Lab (Intra-Procedure), Routine potassium chloride ER (K-Dur/Klor-Con) Given 08/23/2019 10:06 AM EDT 40 mEq tablet 40 mEq 40 mEq, Oral, ONCE, 1 dose, On 08/23/19 at 0945, 20 mEq tablet may be dissolved in water for administration, Routine potassium chloride ER (K-Dur/Klor-Con) tablet Given 8:43 AM EDT 40 mEq 40 mEq 40 mEq, Oral, ONCE, 1 dose, On 08/24/19 at 0645, 20 mEq tablet may be dissolved in water for administration, Routine potassium chloride ER (K-Dur/Klor-Con) Given 08/25/2019 11:09 AM EDT 40 mEq tablet 40 mEq 40 mEq, Oral, EVERY 4 HOURS, 2 doses, First dose (after last modification) on Sun08/25/19 at 0730, Last dose on Sun08/25/19 at 1130, 20 mEq tablet may be dissolved in water for administration. Please give doses 4 hours apart., Routine Given 08/25/2019 8:11 AM EDT 40 mEq sodium chloride 0.9 % (flush) flush 5 mL Given 08/24/2019 8:45 AM EDT 5 mLs 5 mL, Intravenous, 2 TIMES DAILY, First dose on Sun08/22/19 at 2100, Until Discontinued, Routine Given 08/23/2019 9:00 PM EDT 5 mLs Given 08/22/2019 8:15 PM EDT 5 mLs sodium chloride 0.9 % (flush) flush 5 mL Given 08/25/2019 8:24 AM EDT 5 mLs 5 mL, Intravenous, 2 TIMES DAILY, First dose on 08/22/19 at 2100, Until Discontinued, Routine Given 08/24/2019 9:03 PM EDT 5 mLs Given 08/24/2019 8:45 AM EDT 5 mLs sodium chloride 0.9% 500 mL IV bolus New Bag 08/23/2019 10:04 AM EDT 100 mL/hr Intravenous, ONCE, 1 dose, On 08/23/19 at 0945 warfarin (COUMADIN) daily order reminder Oral, EVERY 24 HOURS, First dose on 08/25/19 at 1400, Until Discontinued, If the daily warfarin order has not been placed , contact the Pharmacy to confirm that the order will be written, the dose is held or discontinue d. warfarin (Coumadin) tablet 5 mg Given 08/24/2019 5:19 PM EDT 5 mg 5 mg, Oral, ONCE, 1 dose, On Sun08/24/19 at 1700, DO NOT SPLIT, CRUSH OR OPEN, Routine documented in this encounter Active and Recently Administered Medications Times are shown in EDT. Scheduled Medication Order 08/23/2019 08/24/2019 08/25/2019 enoxaparin (LOVENOX) injection 180 mg 0405 (Given - Pr ovider: Radha Giraldo RN)1848 (Given - Provider: Colleen Milan RN) 0543 (Given - Provider: Radha Giraldo RN)1722 (Given - Provider: Colleen Milan RN) 0423 (Given - Provider: Xenia Mcdermott RN)1747 (Given - Provider: Hector Prasad, ABEL) 180 mg (rounded from 180.1 mg = 1 mg/kg/ dose ? 180.1 kg), Subcutaneous, EVERY 12 HOURS SCHEDULED (2 times per day), First dose on 08/23/19 at 0500, Until Discontinued, Routine losartan (Cozaar) tablet 25 mg 1 109 (Given - Provider: Hector Prasad, ABLE) 25 mg, Oral, DAILY, First dose on 08/10 at 1100, Until Discontinued, Hold for SBP < 100 mm Hg, Routine magnesium sulfate 2 g in sterile water 50 mL (COMPLETE D) 0945 (New Bag - Provider: Colleen Milan RN)1145 (Stopped - Provider: Colleen Milan RN) 2 g, Intravenous, ONCE, 1 dose, 08/23/19 at 0945, Ad municipal court judge over 120 Minutes magnesium sulfate 2 g in sterile water 50 mL (COMPLETED) 0843 (New Bag - Provider: Colleen Milan RN)1043 (Stopped - Provider: Colleen Milan RN) 2 g, Intravenous, ONCE, 1 dose, 08/24/19 at 0645, Ad municipal court judge over 120 Minutes magnesium sulfate 2 g in sterile water 50 mL (COMPLETED) 0813 (New Bag - Provider: Hector Prasad RN)1013 (Stopped - Provider: Hector Prasad, ABEL) 2 g, Intravenous, ONCE, 1 dose, 08/25/19 at 0715, Ad municipal court judge over 120 Minutes potassium chloride ER (K-Dur/Klor-Con) tablet 40 mEq ( COMPLETED) 1006 (Given - Provider: Colleen Milan RN) 40 mEq, Oral, ONCE, 1 dose, 08/23/19 a t 0945, 20 mEq tablet may be dissolved in water for administration, Routine potassium chloride ER (K-Dur/Klor-Con) tablet 40 mEq (COMPLE REYNOLD) 0843 (Given - Provider: Colleen Milan RN) 40 mEq, Oral, ONCE, 1 dose, 08/24/19 a t 0645, 20 mEq tablet may be dissolved in water for administration, Routine potassium chloride ER (K-Dur/Klor-Con) tablet 40 mEq (COMPLETED) 0811 (Given - Provider: Hector Prasad, ABEL)1109 (Given - Provider: Hector Prasad, ABEL) 40 mEq, Oral, EVERY 4 HOURS, 2 doses, Fi rst dose (after last modification) on Sun08/25/19 at 0730, Last dose on 08/25/19 at 1130, 20 mEq tablet may be dissolved in water for administration. Please give doses 4 hours apart., Routine sodium chloride 0.9 % (flush) flush 5 mL 0900 (Not Giv en - Provider: Colleen Milan RN - Reason: Patient/family refused)2100 (Given - Provider: Radha Giraldo RN - Comment: wouldnt accept this admin) 0845 (Given - Provider: Colleen Milan RN)2100 (Not Given - Provider: Xenia Mcdermott RN - Reason: Order parameters not met) 0900 (Not Given - Provider: Hector song RN - Reason: See comment - Comment: Given previously during shift) 5 mL, Intravenous, 2 TIMES DAILY, First dose on Sun08/22/19 at 2100, Until Discontinued, Routine sodium chloride 0.9 % (flush) flush 5 mL 0900 (Given - Provider: Colleen Milan RN)2054 (Given - Provider: Radha Giraldo RN)2054 (Given - Provider: Radha Giraldo RN) 0845 (Given - Provider: Colleen Milan RN )2102 (Given - Provider: Xenia Mcdermott RN) 0824 (Given - Provider: Hector Prasad RN) 5 mL, Intravenous, 2 TIMES DAILY, First dose on Sun08/22/19 at 2100, Until Discontinued, Routine sodium chloride 0.9% 500 mL IV bolus (COMPLETED) 1004 (New Bag - Provider: Colleen Milan RN) Intravenous, ONCE, 1 dose, 08/23/19 at 0945 warfarin (COUMADIN) daily order reminder(Linked Group 1) 1400 (Dose held per treatment team - Provider: Hector Prasad RN) Oral, EVERY 24 HOURS, First dose on 08/25/19 at 1400, Until Discontinued, If the daily warfarin order has not been placed, contact the Pharmacy to confirm that the order will be written, the dose is held or discontinued. warfarin (Coumadin) tablet 5 mg (COMPLETED) 171 (Given - Provider: Colleen Milan RN) 5 mg, Oral, ONCE, 1 dose, 08/24/19 at 1700, DO NOT SPLIT, CRUSH OR OPEN, Routine PRN Medication Order 08/23/2019 08/24/2019 08/25/2019 lidocaine (XYLOCAINE) 10 mg/mL (1 %) injection 3 mg 3 mg (0.3 mL), Subcutaneous, ONCE PRN, 1 dose, Starting Sun08/22/19 at 1731, Until Sun08/25/19 at 2118, for discomfort with PIV insertion, Routine lidocaine (XYLOCAINE) 10 mg/mL (1 %) injection 3 mg 3 mg (0.3 mL), Subcutaneous, ONCE PRN, 1 dose, Starting Sun08/22/19 at 1731, Until Sun08/25/19 at 2118, for discomfort with PIV insertion, Routine nitroGLYcerin (Nitrostat) disintegrating tablet 0.4 mg 0.4 mg, Sublingual, EVERY 5 MIN PRN, Sta rting Sun08/22/19 at 1731, Until Sun08/25/19 at 2118, Chest pain, May repeat every 5 minutes for a total of three doses. Notify provider if chest pain not relieved with nitroglycerin. Do not administer ni troglycerin if the patient has received or taken phosphodiesterase (PDE-5) inhibitors such as sildenafil, tadalafil or vardenafil within the last 24 to 72 hours., Routine perflutren protein-A microspheres (OPTIS ON) 0.22 mg/mL injection 0.5 mL (COMPLETED) 1100 (Given - Provider: Jayy Singletary) 0.5 mL, Intravenous, ONCE PRN, 1 dose, S tarting 08/23/19 at 1204, Until 08/23/19 at 1100, for enhancement of sub-optimal echo images, Echo Lab (Intra- Procedure), Routine sodium chloride 0.9 % (flush) flush 5-20 mL 5-20 mL, Intravenous, EVERY 1 MIN PRN, S tarting Sun08/22/19 at 1731, Until Sun08/25/19 at 2118, flush, Flush pertains to all indwelling lines. Flush per protocol found in the job aid using the link provided on this medication record., Routine sodium chloride 0.9 % (flush) flush 5-20 mL 5-20 mL, Intravenous, EVERY 1 MIN PRN, S tarting Sun08/22/19 at 1731, Until Sun08/25/19 at 2118, flush, Flush pertains to all indwelling lines. Flush per protocol found in the job aid using the link provided on this medication record., Routine Linked Groups Order Group 1: warfarin (COUMADIN) daily order reminderJump to med Oral, EVERY 24 HOURS, First dose on Sun08/25/19 at 1400, Until Discontinued
If the daily warfarin order has not been placed, contact the Pharmacy to confirm that the order will be written, the dose is held or discontinued.
And Consult to Pharmacy (CANCELED) Routine
Medication Name: Warfarin
Reason for Consult? Pharmacist Managed Warfarin documented in this encounter Additional Health Concerns Infection Onset Date Last Indicated Resolved Time Rule Out COVID-19 08/22/2019 08/22/2019 08/22/2019 9:0 1 PM EDT documented as of this encounter Care Teams Relay Checker Relationship Specialty Start Date End Date Becky Castillo MD PCP - General 03/15/10 08/31/19 [address] [place] [address] documented as of this encounter
--- OUTSIDE RECORDS SUMMARY | 2021-12-09 01:17 | XMS_ITS | Encounter Summary ---
:1965 [place] [address] Care Team Providers Name Role Phone Claudio Alegre MD Primary Care Provider Encounter Details Date Type Department Care Team Description 08/31/2019 Ancillary Procedure [place] [address] Social History Tobacco Use Types Packs/Day Years Used Date Never Assessed Sex Assigned at Date Recorded Not on file documented as of this encounter Plan of Treatment Not on filedocumented as of this encounter Procedures Procedure Name Priority Date/Time Associated Diagnosis Comme nts REQUEST FOR 2ND STAT 08/31/2019 1:27 AM Result s for this READ CT UPPER EDT procedure are in EXTREMITY the results section. documented in this encounter Results Request For 2nd Read CT Upper Extremity [...] comments as necessary): Upper extremity; Sending Institution [facility]; Date of exam [id number]; I believe a reinterpretation of this exam may alter care of Patient. Yes TECHNIQUE: Reinterpretation request for outside CTA of the right upper extremity (elbow to hand) performed following intravenous ad ministration of contrast material. COMPARISON: CT PE 08/22/2019 FINDINGS: Proximal most aspect of the radial arter y not included in the itbqi-rq-ptdf given early takeoff. Small pseudoaneurys m (measuring [...] comments as necessary): Upper extremity; Sending Institution [facility]; Date of exam 20190830; I believe a reinterpretation of this exam may alter care of Patient. Yes TECHNIQUE: Reinterpretation request for outside CTA of the right upper extremity (elbow to hand) performed following intravenous ad ministration of contrast material. COMPARISON: CT PE 08/22/2019 FINDINGS: Proximal most aspect of the radial arter y not included in the tdrkm-bf-voix given early takeoff. Small pseudoaneurys m (measuring [...] RDERABLES documented in this encounter Visit Diagnoses Not on filedocumented in this encounter Care Teams Product Expert Relationship Specialty Start Date End Date Claudio Alegre MD PCP - General General Internal Medicine 09/01/19 [address] [place] [address] documented as of this encounter
--- OUTSIDE RECORDS SUMMARY | 2021-12-09 01:17 | XMS_ITS | Encounter Summary ---
:1965 [place] [address] Care Team Providers Name Role Phone Becky Castillo MD Primary Care Provider Encounter Details Date Type Department Care Team Description 08/30/2019 Ancillary Procedure Radiology Library at [facility] Hilliard [facility] MD Sherrell [facility] [place] [address] [place] [address] VASCULAR SURGERY [phone] [place], [place] [address] (Wo rk) Social History Tobacco Use Types Packs/Day Years Used Date Never Assessed Sex Assigned at Date Recorded Not on file documented as of this encounter Plan of Treatment Not on filedocumented as of this encounter Procedures Procedure Name Priority Date/Time Associated Diagnosis Comme nts FILM LIBRARY Routine 08/30/2019 9:12 PM Results f or this STORAGE ONLY CT EDT procedure ar e in UPPER EXTREMITY the results section. documented in this encounter Results Film Library- Storage Only CT Upper Extremity (08/30/2019 9:12 PM EDT) Specimen (Source) Anatomical Location Collection Method / Collectio n Time Received Time / Laterality Volume Narrative RAD - 08/30/2019 9:12 PM EDT This exam is auto-finalizing. It's purpo se is for storage only. Ping Hilliard MD IMG FILM LIBRARY ORDERABLES Performing Organization Address City/State/ZIP Code Phon e Number [facility] [place] documented in this encounter Visit Diagnoses Not on filedocumented in this encounter Care Teams Research [employer] Insights Executive Relationship Specialty Start Date End Date Becky Castillo MD PCP - General 03/15/10 08/31/19 [address] [place] [address] documented as of this encounter
--- OUTSIDE RECORDS SUMMARY | 2021-12-09 01:18 | XMS_ITS | Encounter Summary ---
:1965 Author Organization [facility] Address [address] [place] [address] Care Team Providers Name Role Phone Unknown, Provider Primary Care Provider Encounter Details Date Type Department Care Team Description 04/18/2018 Results Only [facility]- Henry Ely MD [phone] [place] [address] [place], [place] [address] (Wo rk) Social History Tobacco Use Types Packs/Day Years Used Date Never Assessed Sex Assigned at Date Recorded Not on file documented as of this encounter Plan of Treatment Not on filedocumented as of this encounter Procedures Procedure Name Priority Date/Time Associated Diagnosis Comme nts SURGICAL PATHOLOGY Routine 04/18/2018 22:16 Resul ts for this EST procedure are i n the results section. documented in this encounter Results SURGICAL PATHOLOGY (04/18/2018 22:16 EST) Pathology Report: SURGICAL PATHOLOGY REPORT [facility] Reports generated via electronic interface contain trini ginal data; LABORATORY however they are lacking the format of the original re port. SERVICES Caution should be taken when reading/interpreting unfo rmatted reports. Name: ? ESTEBAN ALEXANDER ? Accession #: ? [id number] ? : ? 1965 (Age: [age]) ??M ? Collect Date: ? 04/18/2018 ? Location: ? [facility] ? Receive Date: ? 018 ? Provider: HENRY WILCOX MD Copy to: VIANNEY PEREZ MD ? Final Pathologic Diagnosis: NASAL CAVITY, BILATERAL, POLYPS, CURETTAGE: - Fragments of inflammatory polyps with focal reactive squamous metaplasia and associated acute inflammation. Document reviewed and electronically signed by: RAMANA UMANZOR MD Report ??Date: 04/22/2018 15:47 By the signature above, the attending physician certif ies that he/she has personally conducted a gross and/or microscopic examin ation of the described specimens and rendered or confirmed the above diagnosi s. Specimen(s) Received: Nasal polyps (bilat) Clinical History: Nasal polyps Gross Description: ? Received in formalin labelled with proper patient identification (initials J, D) and nasal polyps bilat are two corado-pink to yel low glistening and edematous tissues (2.7 x 1.8 x 0.6 cm and 3.3 x 1.6 x 0.8 cm). An additional aggregate of corado-pink to yel low glistening and edematous tissue fragments (2.2 x 1.5 x 0.3 cm) is present. The presumed margins of the intact tissues are differentially inked and each tissue is serially secti oned. The specimen is entirely submitted as follows: BLOCK AVILEZ 1- ??tissue fragments 2-4- ??smaller intact tissue, serially sectioned 5-8- ??larger intact tissue, serially sectioned SANJANA Khan (ASCP) 04/19/2018 9:02 AM End of Report Specimen Performing Organization Address City/State/ZIP Code Phon e Number [facility] [address] [place] [id number] SERVICES documented in this encounter Visit Diagnoses Not on filedocumented in this encounter Care Teams Car Hiker Relationship Specialty Start Date End Date Unknown, Provider, PCP - General 04/18/18 04/18/18 documented as of this encounter
--- OUTSIDE RECORDS SUMMARY | 2021-12-09 01:18 | XMS_ITS | Encounter Summary ---
:1965 Author Organization [facility] Address [address] [place] [address] Care Team Providers Name Role Phone Claudio Alegre MD Primary Care Provider Encounter Details Date Type Department Care Team Description 08/22/2019 Lab Requisition [facility] Outr Resulting Lab, Pathology & Laboratory Provider [facility] [address] [place], [place] [address] Social History Tobacco Use Types Packs/Day Years Used Date Never Assessed Sex Assigned at Date Recorded Not on file documented as of this encounter Plan of Treatment Not on filedocumented as of this encounter Procedures Procedure Name Priority Date/Time Associated Diagnosis Comme nts COVID-19 TEST [facility] Today 08/22/2019 12:06 LAB PCR EDT COVID-19 TESTING Routine 08/22/2019 12:06 Results for this EDT procedure are i n the results section. documented in this encounter Results COVID-19 TEST [facility] LAB PCR (08/22/2019 12:06 EDT) Specimen Swab - Entire nasopharynx (body structur e) Performing Organization Address City/State/ZIP Code Phon e Number [facility] [address] [place] [address] SERVICES COVID-19 TESTING (08/22/2019 12:06 EDT) COVID-19 rt-PCR Negative Negative [facility] Result Comment: [facility] Negative results do not prec lude 2019-nCoV infection and should not be used as the sole basis for treatment or other patient management decisions. Negative results must be combined with clinical observa SERVICES tions, patient history, and epidemiological informatio n. This test has not been FDA c leared or approved. This test has been authorized by FDA under an EUA for use by authorized laboratories. This test has been authorized only for detection of nucleic acid fro m 2019-nCoV, not for any oth er viruses or pathogens. This test is only authorized for the duration of the declaration that circumstances exist justifying the authorization of emergency use of in vitro d iagnostic tests for detectio n and/or diagnosis of 2019-nCoV under section 564(b)(1) of Act, 21 U.S.C ?? 360bbb-3(b) (1), unless the authorization is terminated or revoked sooner. Performed on the UNY[employer] Fusion instrument Performing Lab [facility] Hospital Lab [facility] SERVICES Specimen Swab - Entire nasopharynx (body structur e) Performing Organization Address City/State/ZIP Code Phon e Number [facility] [address] [place] [address] SERVICES documented in this encounter Visit Diagnoses Not on filedocumented in this encounter Care Teams Metal Patternmaker Relationship Specialty Start Date End Date Claudio Alegre MD PCP - General 04/19/18 documented as of this encounter
--- OUTSIDE RECORDS SUMMARY | 2021-12-09 01:18 | XMS_ITS | Clinical Summary ---
:1965 Author Organization [facility] Address [address] [place] [address] Care Team Providers Name Role Phone Claudio Alegre MD Primary Care Provider Social History Tobacco Use Types Packs/Day Years Used Date Never Assessed Sex Assigned at Date Recorded Not on file Plan of Treatment Not on file Care Teams Subeditor Relationship Specialty Start Date End Date Claudio Alegre MD PCP - General 04/19/18
--- OUTSIDE RECORDS SUMMARY | 2021-12-09 01:18 | XMS_ITS | Encounter Summary ---
:1965 Author Organization [facility] Address [address] [place] [address] Care Team Providers Name Role Phone Unknown, Provider Primary Care Provider Encounter Details Date Type Department Care Team Description 04/18/2018 Hospital Encounter [facility] [place] Unknown, Provider, Noe Delong MD 0 [facility] [phone] [place] [address] (Work) [phone] Social History Tobacco Use Types Packs/Day Years Used Date Never Assessed Sex Assigned at Date Recorded Not on file documented as of this encounter Discharge Disposition Disposition Code Departure Means Destination Home or Self Residential documented in this encounter Plan of Treatment Not on filedocumented as of this encounter Visit Diagnoses Not on filedocumented in this encounter Care Teams Fractionation Plant Supervisor Relationship Specialty Start Date End Date Unknown, Provider, PCP - General 04/18/18 04/18/18 documented as of this encounter
[2021-12-09 12:24] LABS: Anion Gap 10.8 mmol/L (3-11); BUN 12 mg/dL (7-18); CO2 26.2 mmol/L (21.0-32.0); CREATININE 0.9 mg/dL (0.70-1.30); Calculated LDL 81 mg/dL (<100); Chloride 101 mmol/L (98-107); Cholesterol 154 mg/dL (<200); Glucose 159 mg/dL (74-106); HDL Cholesterol 43 mg/dL (40-60); Potassium 4.3 mmol/L (3.5-5.1); Sodium 138 mmol/L (136-145); Triglyceride 154 mg/dL (<150)
== END 2021-12-09 01:11 | disposition home or self-care (01) ==
LOC: LBO 01:11
PROVIDERS: PCP Nurse Practitioner Family; Visit Provider Nurse Practitioner Family
DX: I10 Essential (primary) hypertension (principal); E78.5 Hyperlipidemia, unspecified
CPT/HCPCS: 36415; 80048; 80061

== ENCOUNTER 2022-12-07 05:30 | Outpatient (CLI) | payer OTHER, SELFPAY ==
[2022-12-07 12:27] LABS: CREATININE 1.2 mg/dL (0.70-1.30); Estimated GFR 70.98 (mL/min/1.73m2); Potassium 4.3 mmol/L (3.5-5.1)
[2022-12-07 12:45] LABS: Hemoglobin A1C 12.3 % (<5.7)
== END 2022-12-07 05:31 | disposition home or self-care (01) ==
PROVIDERS: PCP Nurse Practitioner Family; Visit Provider Nurse Practitioner Family
DX: E11.9 Type 2 diabetes mellitus without complications (principal); I10 Essential (primary) hypertension
CPT/HCPCS: 36415; 82565; 83036; 84132

== ENCOUNTER 2024-01-18 13:16 | Outpatient (CLI) | payer OTHER, SELFPAY ==
[2024-01-18 13:43] LABS: BUN 16 mg/dL (7-18); CREATININE 1.4 mg/dL (0.70-1.30); Calcium 9.4 mg/dL (8.5-10.1); Calculated LDL 78 mg/dL (<100); Chloride 103 mmol/L (98-107); Cholesterol 143 mg/dL (<200); Estimated GFR 58.62 (mL/min/1.73m2); Glucose 225 mg/dL (74-106); HDL Cholesterol 41 mg/dL (40-60); Potassium 4.1 mmol/L (3.5-5.1); Sodium 138 mmol/L (136-145); TSH (W/Ref FT4) 2.39 uIU/mL (0.36-3.74); Triglyceride 122 mg/dL (<150)
== END 2024-01-18 13:17 | disposition home or self-care (01) ==
LOC: LBO 13:16
PROVIDERS: PCP Nurse Practitioner Family; Visit Provider Nurse Practitioner Family
DX: Z13.220 Encounter for screening for lipoid disorders (principal); E66.01 Morbid (severe) obesity due to excess calories; I10 Essential (primary) hypertension
CPT/HCPCS: 36415; 80048; 80061; 84443

== ENCOUNTER 2025-01-14 04:05 | Outpatient (CLI) | payer OTHER, SELFPAY ==
[2025-01-14 12:43] LABS: Anion Gap 11.8 mmol/L (3-11); BUN 14 mg/dL (7-18); CO2 24.2 mmol/L (21.0-32.0); Calcium 9.6 mg/dL (8.5-10.1); Calculated LDL 89 mg/dL (<100); Chloride 101 mmol/L (98-107); Cholesterol 157 mg/dL (<200); Estimated GFR 70.10 (mL/min/1.73m2); Glucose 180 mg/dL (74-106); HDL Cholesterol 41 mg/dL (>or=40); Potassium 4.3 mmol/L (3.5-5.1); Sodium 137 mmol/L (136-145); Triglyceride 138 mg/dL (<150)
[2025-01-14 13:22] LABS: Hemoglobin A1C 6.7 % (<5.7)
== END 2025-01-14 04:06 | disposition home or self-care (01) ==
PROVIDERS: PCP Nurse Practitioner Family; Visit Provider Nurse Practitioner Family
DX: Z13.1 Encounter for screening for diabetes mellitus (principal); Z13.220 Encounter for screening for lipoid disorders; I10 Essential (primary) hypertension
CPT/HCPCS: 36415; 80048; 80061; 83036